=== PATIENT | female | born 1965 | race Caucasian/White ===

== ENCOUNTER 2020-03-31 05:47 | Inpatient (IN) | payer OTHER, SELFPAY ==
[2020-03-31] VITALS (14 sets, daily range): BP systolic 142–256; BP diastolic 63–120; PULSE 54–102; RESP 15–18; TEMP 36.2–37.2; O2SAT 98–100; BMI 30.4; BMI 29.3
--- NOTE | 2020-03-31 06:00 | EKG12_ITS ---
Test Reason : HEADACHE Blood Pressure : / mmHG Vent. Rate : 089 BPM Atrial Rate : 089 BPM P-R Int : 200 ms QRS Dur : 086 ms QT Int : 392 ms P-R-T Axes : 057 008 044 degrees QTc Int : 476 ms Normal sinus rhythm Normal ECG Confirmed by SEAMUS THURMAN, KATHLEEN ([id number]), editorial specialist ERNESTINA VALENTIN ([id number]) on 04/03/2020 11:21:20 AM Referred By: SULEIMAN Confirmed By:KATHLEEN WAY MD
--- NOTE | 2020-03-31 06:00 | CT_ITS ---
STUDY: CT BRAIN WITHOUT CONTRAST REASON FOR EXAM: Female, 54 years old. Headache for 4 days. History of hypertension, diabetes and stage IV kidney disease. RADIATION DOSAGE (If Supplied By Facility): CTDIvol = ( 44.99 ) mGy, DLP = ( 812.98 ) mGycm TECHNIQUE: Transaxial CT imaging of the brain was performed without administration of intravenous contrast material. Individualized dose optimization techniques were used for this CT. COMPARISON: November 27, 2014. FINDINGS: Normal soft tissue structures. Normal calvarium. Normal size ventricles and extra-axial spaces for the patient''s age. Normal white matter tracts of the cerebral hemispheres. Normal basal ganglia and thalami. Normal brainstem. Normal cerebellum. There is no intracranial hemorrhage. There are no findings of an acute ischemic infarction. Normal visualized paranasal sinuses. Mastoid air cells are well aerated. CT/Brain/Head without Contrast IMPRESSION: Normal unenhanced CT scan of the brain. Electronically Signed: Mitchel Mena MD at 7:02 EDT , Service support ,
--- NOTE | 2020-03-31 06:02 | ED.DCSUM_ITS ---
History of Present Illness Chief Complaint: Headache Informant: Patient Onset: Days Context: Gradual Onset Timing: Waxes and wanes Current Severity: Mild Maximum Severity: Moderate Narrative: Patient presents secondary to headache and inability to sleep. She states she is not really been able to sleep more than a couple hours at a time over the past 6 days. She has attributed this to her chronic kidney disease. She does report having a headache for the past 4 days. On arrival to the emergency room she notes that her blood pressure is quite elevated. She states she has been taking her blood pressure medications as prescribed. She believes the last time her blood pressure was checked was in September and at that time it was normal. She does report having chronic kidney disease and was advised by her PCP to see a juvenile counselor, but has yet to make an appointment. - Past Medical History (1) Hypertension Status: Chronic (2) High cholesterol Status: Chronic (3) Diabetes Status: Chronic (4) Chronic kidney disease Status: Chronic Past Medical History - Allergies and Home Meds Allergies/Adverse Reactions: Allergies lisinopril Adverse Reaction (Verified 03/31/20 05:54) NEEDS FOLLOW-UP Primary Care Physician: Laura Ennis MD [Primary Care Provider] - Lives: Alone Smoking Status: Never smoker Review of Systems General: Denies: Chills, Fever Eyes: Denies: Visual changes - bilaterally ENT: Denies: Bilateral ear pain Cardiovascular: Denies: Chest pain Respiratory: Denies: Dyspnea, Cough Gastrointestinal: Denies: Abdominal pain, Vomiting Musculoskeletal: Reports: Myalgias. Denies: Extremity Pain Skin: Denies: Rash Neurological: Reports: Headache. Denies: Weakness, Parasthesia Hematologic: Denies: Easy bruising, Easy bleeding Allergy: Denies: Uticaria Physical Exam Vital Signs/Narrative: Vital Signs Temp Pulse Resp BP Pulse Ox 03/31/20 05:53 95 16 253/120 H 98 03/31/20 05:48 98.9 F 95 15 256/118 H 98 Inital Vital Signs reviewed: Yes General: Well nourished, Well developed Head: Normocephalic ENT: Moist mucous membranes Neck: Supple Cardiovascular: Regular rate, Regular rhythm Respiratory: No distress, CTA bilaterally Abdomen: Soft, Nontender Extremities: Nontender Skin: No rash Neurological: Alert, Oriented x3, Normal Strength, Normal Sensation Psychological: Normal affect Diagnostic/Tx/Re-eval Impressions Brain CT 03/31/20 06:00 IMPRESSION: Normal unenhanced CT scan of the brain. Electronically Signed: Mitchel Mena MD at 7:02 EDT , Service support , 03/31/20 06:00 Brain/Head without Contrast [CT] Stat Laboratory Results 03/31/20 03/31/20 06:01 06:01 WBC 7.9 RBC 4.35 Hgb 11.1 L Hct 33.9 L MCV 77.9 L MCH 25.5 L MCHC 32.7 RDW Std Deviation 39.9 RDW Coeff of Gracy 14.4 Plt Count 244 MPV 10.4 Immature Gran % (Auto) 0.300 Neut % (Auto) 61.2 Lymph % (Auto) 27.3 [place] % (Auto) 7.2 Eos % (Auto) 3.4 Baso % (Auto) 0.6 Absolute Neuts (auto) 4.8 Absolute Lymphs (auto) 2.15 Nucleated RBC % 0 Sodium 134 L Potassium 3.6 Chloride 98 Carbon Dioxide 28.0 Anion Gap 8 BUN 26 H Creatinine 2.37 H Estim Creat Clear Calc 26.39 Est GFR (MDRD) Af Amer 27 L Est GFR (MDRD) Non-Af 23 L BUN/Creatinine Ratio 11.0 Glucose 272 H Calcium 9.4 Troponin I 0.081 H - EKG Initial EKG Interpretation: Sinus Rhythm - Sinus 89. No acute ischemia. - Medical Decision Making Patient's blood pressure on arrival was 256/118. She was given a p.o. dose of clonidine as well as 20 mg of IV Lopressor. Blood pressure came down to 219/101 but is currently 225/99. Patient does have known chronic kidney disease. Her troponin is mildly elevated, likely a combination of cardiac strain from hypertension as well as her renal failure. I will speak with hospitalist regarding admission. ED Disposition - Plan for ED Patient: Disposition: Acute Care Hospital [facility] Diagnosis: Hypertensive emergency Referrals: Laura Ennis MD [Primary Care Provider] -
[2020-03-31 06:06] LABS: Absolute Lymphocyte Count 2.15 X10^3/uL (0.83-4.51); Absolute Neutrophil Count 4.8 X10^3/uL (2.0-7.7); Basophil# 0.05 X10^3/uL; Basophil% 0.6 % (0-1); Eosinophil# 0.27 X10^3/uL; Eosinophils% 3.4 % (0-5); Hematocrit 33.9 % (37-47); Hemoglobin 11.1 g/dL (12.0-15.0); Lymphocyte # 2.15 X10^3/ul (4.0); Lymphocyte % 27.3 % (19-41); Mean Corp Hgb Conc 32.7 g/dL (32-36); Mean Corpuscular Hgb 25.5 pg (27.0-32.0); Mean Corpuscular Volume 77.9 fL (81-99); Mean Platelet Vol. 10.4 fl (6.2-12.0); Monocyte# 0.57 X10^3/uL; Monocyte% 7.2 % (0-10); NRBC Flagged by Analyzer 0 % (0-5); Neutrophil # 4.82 X10^3/uL (2.7-7.7); Neutrophil % 61.2 % (47-70); Platelet Count 244 K/mm3 (150-450); RBC Distribution Width CV 14.4 % (11.6-14.6); RBC Distribution Width SD 39.9 fl (35.1-43.9); Red Blood Count 4.35 M/mm3 (4.2-5.4); White Blood Count 7.9 K/mm3 (4.4-11.0)
--- NOTE | 2020-03-31 06:12 | ED.RN ---
NO OLD EKGS IN MUSE
[2020-03-31] MEDS: cloNIDine HCl 0.1 MG Tablet PO ×3 (06:24→20:58)
[2020-03-31] MEDS: Labetalol (Prefilled) 20 MG/4 ML IV ×2 (06:24→07:45)
[2020-03-31 06:44] LABS: Anion Gap 8 (5-15); BUN 26 mg/dL (7-18); Calcium,Total 9.4 mg/dL (8.5-10.1); Chloride 98 mmol/L (98-107); Creatinine, Serum 2.37 mg/dL (0.55-1.02); EST Glomerular Filtration Rate 23 mL/min (>60); Est Glom Filt Rate - Afr Amer 27 mL/min (>60); Estimated Creatinine Clearance 26.39 ml/min; Glucose 272 mg/dL (74-106); Potassium 3.6 mmol/L (3.5-5.1); Sodium Level 134 mmol/L (136-145)
--- NOTE | 2020-03-31 07:34 | HP.PCM_ITS ---
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 chcf insulin use status Diabetes mellitus complication status: with other specified complication Qualified Code(s): E11.69 - Type 2 diabetes mellitus with other specified complication (4) Chronic kidney disease Status: Chronic Qualifiers: Chronic kidney disease stage: stage 4 (severe) Qualified Code(s): N18.4 - Chronic kidney disease, stage 4 (severe) (5) Hypertensive emergency Status: Acute History of Present Illness Date of Admission: 03/31/20 Chief Complaint: Headache, inability to sleep - 3 days The patient is a 54 year old F with past medical history of hypertension, stage IV CKD who comes in with intractable headache and unable to sleep for the past 4 days. Patient states that he has restless leg and has not been able to sleep. She has been taking her blood pressure medications as prescribed. She denied any chest pain or dizziness or palpitations or shortness of breath. Vitals in the ED showed temperature of 97.8F, heart rate 94, blood pressure was 256/118, respiratory rate is 15, SPO2 is 98% on room air. BBC count is 7.9, hemoglobin 11.1, platelet count 244, sodium 134, potassium 3.6, chloride 98, bicarbonate 28, BUN 26, creatinine 2.37. Review of records from the [facility] shows baseline creatinine of 2.29. Troponins were elevated at 0.081, 0.100, 0.088. EKG shows normal sinus rhythm with no acute ST-T changes. CT of the brain was unremarkable. Past Medical History Past Medical History (Chronic Problems): Chronic Problems Hypertension (Chronic) High cholesterol (Chronic) Diabetes (Chronic) Chronic kidney disease (Chronic) Allergies lisinopril Adverse Reaction (Verified 03/31/20 05:54) NEEDS FOLLOW-UP Home Medications: Ambulatory Orders Medication Instructions Recorded Cetirizine HCl [Zyrtec] 10 mg PO DAILY 11/27/14 Losartan Potassium [Cozaar] 50 mg PO BID 11/27/14 Multivit/Folic Acid/Herbal 223 400 mcg PO DAILY 11/27/14 [Estroven Mood & Memory Caplet] metFORMIN HCl [Glucophage] 500 mg PO BIDCM 11/27/14 Bupropion HCl 100 mg PO DAILY 03/31/20 Carvedilol [Coreg] 12.5 mg PO BID 03/31/20 Clonidine HCl [Catapres] 0.1 mg PO BID 03/31/20 Ferrous Sulfate [Pedia Iron] 45 mg PO DAILY 03/31/20 Liraglutide [Victoza] 1.8 mg SQ DAILY 03/31/20 Lovastatin 20 mg PO QHS 03/31/20 Omeprazole [Prilosec] 20 mg PO DAILY 03/31/20 traZODone [Desyrel] 100 mg PO QHS 03/31/20 Surgical History: cataract, - - Status post surgery to the hands, Psychiatric History: Depression DIRECTOR OF THERAPY SERVICES History: No pertinent DIRECTOR OF THERAPY SERVICES history Lives: Alone Smoking Status: Never smoker Tobacco Use: Non-smoker Alcohol: None Drugs: None - *Family History Maternal History Items: - - of PE Paternal History Items: Heart Disease Review of Systems Constitutional: Reports: Weakness, Fatigue. Denies: Anorexia, Chills, Fever, Night Sweats, Malaise, Weight Change Eyes: Denies: Blurred vision, Cataracts, Conjunctivae Inflammation, Pain, Redness, Vision Change HEENT: Reports: Head Aches. Denies: Difficulty Hearing, Difficulty Swallowing, Hearing Changes, Sinus Congestion, Sinus Drainage Cardiovascular: Denies: Chest Pain, Claudication, Orthopnea, Palpitations Respiratory: Denies: Cough, Hemoptysis, Shortness of breath at rest, Shortness of breath upon exertion, Sputum production Gastrointestinal: Denies: Abdominal Pain, Constipation, Hematemesis, Hematochezia, Nausea, Vomiting Genitourinary: Denies: Dysuria, Frequency Musculoskeletal: Denies: Joint Pain, Joint stiffness, Joint swelling, Joint Tenderness Skin: Denies: Rash, Wounds Neurological: Denies: Difficulty swallowing, Focal weakness, Numbness, Tingling Psychiatric: Denies: Anxiety, Depression, Homicidal Ideations, Suicidal Ideatio ns Hematologic/ Lymphatic: Denies: Easy Bruising, Easy Bleeding VTE Information - Inpt Only VTE Present on Admission: No VTE Pharm Prophylaxis ordered?: Yes Patient Problems: Active and Suspected Problems Hypertensive emergency (Acute) - Physical Exam Vitals/I&O's: Vital Signs Temp Pulse Resp BP Pulse Ox 98.9 F 95 16 219/101 H 98 03/31/20 05:48 03/31/20 05:53 03/31/20 05:53 03/31/20 06:30 03/31/20 05:53 Oxygen Delivery Method Room Air Weight: 88.1 kg Body Mass Index (BMI) 30.4 General: Alert, Oriented x3, Cooperative, No apparent distress, - - In mild discomfort. HEENT: Atraumatic, PERRLA, EOMI, Normocephalic Oral: Moist Mucosa Neck: Supple Lungs: Clear to auscultation, Normal air movement Cardiovascular: Regular rate, Regular Rhythm, Normal S1, Normal S2, No murmurs, Tachycardic Abdomen: Bowel Sounds Present, Soft, Non Tender, Non-Distended, No Hepato- splenomegaly Extremities: No edema Skin: No rashes Musculoskeletal: No Tenderness to Palpation of Joints or Extremities Lymphatic: No Cervical, Supraclavicular, or Inguinal Adenopathy Neurological: Cranial nerves II-XII grossly intact, Neuro grossly intact Psych/Mental Status: Normal Affect, Appropriate Laboratory Results 03/31/20 06:01: WBC 7.9, RBC 4.35, Hgb 11.1 L, Hct 33.9 L, MCV 77.9 L, MCH 25.5 L, MCHC 32.7, RDW Std Deviation 39.9, RDW Coeff of Gracy 14.4, Plt Count 244, MPV 10.4, Immature Gran % (Auto) 0.300, Neut % (Auto) 61.2, Lymph % (Auto) 27.3, [place] % (Auto) 7.2, Eos % (Auto) 3.4, Baso % (Auto) 0.6, Absolute Neuts (auto) 4.8, Absolute Lymphs (auto) 2.15, Nucleated RBC % 0 03/31/20 06:01: Sodium 134 L, Potassium 3.6, Chloride 98, Carbon Dioxide 28.0, Anion Gap 8, BUN 26 H, Creatinine 2.37 H, Estim Creat Clear Calc 26.39, Est GFR (MDRD) Af Amer 27 L, Est GFR (MDRD) Non-Af 23 L, BUN/Creatinine Ratio 11.0, Glucose 272 H, Calcium 9.4, Troponin I 0.081 H Assessment/Plan All Active Problems Hypertensive emergency (Acute) 1. Hypertensive emergency with intractable headache, likely related to inability to sleep In a patient with hypertension and CKD stage IV Patient received a couple of as needed medications in the ED Would resume home medications -increase carvedilol to 25 mg p.o. twice daily, Continue on clonidine 0.1 mg twice daily, losartan 50 mg p.o. twice daily Continue to monitor vitals closely 2. Insomnia, related to restless leg Check iron stores for iron deficiency anemia Continue on oral iron 3. Mild elevation in troponin likely related to uncontrolled hypertension EKG shows no acute ST-T changes We will continue to trend 4. Stage IV CKD, creatinine is about the same, will continue to monitor 5. Type II DM, on metformin, hold metformin for today Continue with blood glucose check and insulin sliding scale 6. Depression, continue on trazodone and bupropion 7. DVT prophylaxis with heparin subcu Inpatient E&M: 22062 Init Hosp L3
[2020-03-31] MEDS: LORazepam 1 MG Tablet PO (09:18)
[2020-03-31] MEDS: Acetaminophen 325 MG Tablet 650 MG PO (09:18)
[2020-03-31] MEDS: Pantoprazole Sodium 20 MG Tablet PO (09:18)
[2020-03-31 11:50] LABS: Bedside Glucose 247 mg/dL (70-110)
[2020-03-31] MEDS: Insulin Lispro 100 UNIT/ML INSULN.PEN SC ×2 (11:51→21:01)
[2020-03-31] MEDS: Loratadine 10 MG Tablet PO (11:52)
[2020-03-31] MEDS: Losartan Potassium 100 MG Tablet PO ×2 (11:52→20:58)
[2020-03-31] MEDS: Carvedilol 25 MG Tablet PO ×2 (11:52→20:58)
[2020-03-31] MEDS: buPROPion 100 MG Tablet PO (11:52)
[2020-03-31] MEDS: Ferrous Sulfate 325 MG Tablet PO (11:53)
--- NOTE | 2020-03-31 12:41 | RAD_ITS ---
STUDY: X-RAY - LEFT FOOT CLINICAL: Female, 54 years old. Ulceration of left 2nd metatarsal since 1st week of January -- pt is diabetic TECHNIQUE: 3 view(s) of the foot. COMPARISON: None. FINDINGS: There is an enthesophyte involving the posterior superior calcaneus at the site of insertion of the Achilles tendon. Small plantar spur. Normal visualized subtalar, talonavicular, calcaneocuboid, tarsal and tarsometatarsal articulations. Healed fracture with deformity through the shaft of the fifth metatarsal. Normal metatarsophalangeal joint of the great toe. Normal tibial and fibular sesamoid bones. Normal interphalangeal joint of the great toe. Normal phalanges of the great toe. Normal second through fifth metatarsophalangeal joints. Normal interphalangeal joints and phalanges of the lesser toes. There is non-specific soft tissue swelling of the foot. Vascular calcification. RAD/Foot min 3 Views IMPRESSION: Calcaneal spurs. Soft tissue swelling. Electronically Signed: José Manuel Miranda, at 15:19 EDT , Service support ,
[2020-03-31] MEDS: Heparin Injection (Vial) 5,000 UNIT/ML VIAL 5000 UNIT SC ×2 (13:26→20:58)
--- NOTE | 2020-03-31 13:53 | NURSING ---
wound photo: left foot
[2020-03-31 15:36] LABS: Iron 91 ug/dL (50-170); Iron Binding Capacity,Total 244 ug/dL (250-450); PERCENT IRON SATURATION 37.3 % (15.0-55.0)
[2020-03-31 16:21] LABS: Bedside Glucose 273 mg/dL (70-110)
--- NOTE | 2020-03-31 18:45 | PCM.CONS.GEN ---
Reason for Consult Date of Consultation: 03/31/20 Reason for Consultation: left foot ulceration History of Present Illness: The patient is a 54 year old F admitted for hypertensive emergency. podiatry is consulted for diabetic foot ulceration. per discussion with patient, she developed an ulceration back in December when she went swimming and a callus that she had developed prior, became macerated and the skin was deroofed. she has been cleaning with neosporin and band aid. she denies any redness. she denies n/v/f/c. she denies any drainage. Past Medical History Past Medical History (Chronic Problems): Chronic Problems Hypertension (Chronic) High cholesterol (Chronic) Diabetes (Chronic) Chronic kidney disease (Chronic) Allergies lisinopril Adverse Reaction (Verified 03/31/20 05:54) NEEDS FOLLOW-UP Home Medications: Ambulatory Orders Medication Instructions Recorded Cetirizine HCl [Zyrtec] 10 mg PO DAILY 11/27/14 Losartan Potassium [Cozaar] 50 mg PO BID 11/27/14 Multivit/Folic Acid/Herbal 223 400 mcg PO DAILY 11/27/14 [Estroven Mood & Memory Caplet] metFORMIN HCl [Glucophage] 500 mg PO BIDCM 11/27/14 Bupropion HCl 100 mg PO DAILY 03/31/20 Carvedilol [Coreg] 12.5 mg PO BID 03/31/20 Clonidine HCl [Catapres] 0.1 mg PO BID 03/31/20 Ferrous Sulfate [Pedia Iron] 45 mg PO DAILY 03/31/20 Liraglutide [Victoza] 1.8 mg SQ DAILY 03/31/20 Lovastatin 20 mg PO QHS 03/31/20 Omeprazole [Prilosec] 20 mg PO DAILY 03/31/20 traZODone [Desyrel] 100 mg PO QHS 03/31/20 Surgical History: cataract, - - Status post surgery to the hands, Psychiatric History: Depression 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 she does not appear in any distress vascular: DP and PT pulses are palpable b/l. cft is less than 5 seconds. skin temperature is warm to warm. no erythema is noted. Derm: there is ulceration to left 2nd metatarsal. the ulceration has periwound hyperkeratosis. there is no redness, drainage or local signs of infection. the ulceration following debridement measures 1.1 cm x 1.0 cm x 0.2 cm. no probe to bone. m/s: subtle hammertoe is present of left 2nd toe neuro: protective sensation is absent to b/l feet - Physical Exam Vitals/I&O's: Vital Signs Temp Pulse Resp BP Pulse Ox 97.2 F L 91 18 169/84 H 98 03/31/20 14:39 03/31/20 15:28 03/31/20 14:39 03/31/20 14:39 03/31/20 14:39 Oxygen Delivery Method Room Air Weight: 85 kg Body Mass Index (BMI) 29.3 Intake and Output for Last 24 Hours 03/29/20 03/30/20 03/31/20 23:59 23:59 23:59 Intake Total 100 / 100 Balance 100 / 100 Laboratory Results 03/31/20 06:01: WBC 7.9, RBC 4.35, Hgb 11.1 L, Hct 33.9 L, MCV 77.9 L, MCH 25.5 L, MCHC 32.7, RDW Std Deviation 39.9, RDW Coeff of Gracy 14.4, Plt Count 244, MPV 10.4, Immature Gran % (Auto) 0.300, Neut % (Auto) 61.2, Lymph % (Auto) 27.3, [place] % (Auto) 7.2, Eos % (Auto) 3.4, Baso % (Auto) 0.6, Absolute Neuts (auto) 4.8, Absolute Lymphs (auto) 2.15, Nucleated RBC % 0 03/31/20 06:01: Sodium 134 L, Potassium 3.6, Chloride 98, Carbon Dioxide 28.0, Anion Gap 8, BUN 26 H, Creatinine 2.37 H, Estim Creat Clear Calc 26.39, Est GFR (MDRD) Af Amer 27 L, Est GFR (MDRD) Non-Af 23 L, BUN/Creatinine Ratio 11.0, Glucose 272 H, Calcium 9.4, Troponin I 0.081 H 03/31/20 10:40: Troponin I 0.100 H 03/31/20 11:46: POC Glucose 247 H 03/31/20 13:30: Troponin I 0.088 H 03/31/20 13:30: Iron 91, TIBC 244 L, Iron Saturation 37.3 03/31/20 16:15: POC Glucose 273 H Current Medications Acetaminophen (Tylenol) 650 mg PO Q6H PRN PRN PRN Reason: Pain Score 1-10/Temp > 100.7 F Last Admin: 03/31/20 09:18 Dose: 650 mg Documented by: Atorvastatin Calcium (Lipitor) 5 mg PO QHS [facility] Bupropion HCl (Wellbutrin Tablets) 100 mg PO DAILY [facility] Last Admin: 03/31/20 11:52 Dose: 100 mg Documented by: Carvedilol (Coreg) 25 mg PO BID [facility] Last Admin: 03/31/20 11:52 Dose: 25 mg Documented by: Clonidine (Catapres) 0.1 mg PO BID [facility] Last Admin: 03/31/20 09:18 Dose: 0.1 mg Documented by: Dextrose (D50w Syringe) 0 gm IV X1 PRN; Protocol PRN Reason: Hypoglycemia Ferrous Sulfate (Ferrous Sulfate) 325 mg PO DAILY@1200 [facility] Last Admin: 03/31/20 11:53 Dose: 325 mg Documented by: Glucagon () 1 mg IM .X1 PRN PRN Reason: Hypoglycemia Heparin Sodium (Porcine) (Heparin Na) 5,000 unit SC Q8 [facility] Last Admin: 03/31/20 13:26 Dose: 5,000 unit Documented by: Hydralazine HCl (Apresoline Iv) 10 mg IV Q4H PRN PRN PRN Reason: BLOOD PRESSURE Insulin Human Lispro (Humalog Kwikpen (Bkc)) 0 unit SC ACHS [facility]; Protocol Last Admin: 03/31/20 16:16 Dose: Not Given Documented by: Loratadine (Claritin) 10 mg PO DAILY [facility] Last Admin: 03/31/20 11:52 Dose: 10 mg Documented by: Losartan Potassium (Cozaar) 100 mg PO BID [facility] Stop: 04/01/20 10:00 Last Admin: 03/31/20 11:52 Dose: 100 mg Documented by: Losartan Potassium (Cozaar) 50 mg PO BID [facility] Ondansetron HCl (Zofran) 4 mg IV Q8H PRN PRN PRN Reason: NAUSEA/VOMITING Pantoprazole Sodium (Protonix) 20 mg PO DAILY [facility] Last Admin: 03/31/20 09:18 Dose: 20 mg Documented by: Sodium Chloride () 10 - 40 ml IV UD PRN PRN Reason: SALINE FLUSH Trazodone HCl (Desyrel) 100 mg PO QHS [facility] Assessment/Plan All Active Problems Hypertensive emergency (Acute) Type 2 diabetes mellitus with foot ulcer (Acute) Patient was examined and we discussed ulceration of left 2nd metatarsal. the etiology of this ulceration is due to subtle hammertoe, atrophy of fat pad and neuropathy. there is no local signs of infection. today, a full thickness debridement was performed thru subcutaneous tissue with tissue nippers and #10 blade. bleeding was present and controlled with pressure. I recommend the use of aquacel to the wound applied daily . It is important that she remain nwb to left foot. any walking to left foot can lead to progressive worsening of left foot ulceration. will have patient use walker and surgical shoe and she is advised of any walking to left foot. I will order xrays of left foot. she can discharge once medically stable and follow-up in my outpatient clinic.
[2020-03-31 20:31] LABS: Bedside Glucose 334 mg/dL (70-110)
[2020-03-31] MEDS: traZODone 100 MG Tablet PO (20:58)
[2020-03-31] MEDS: Atorvastatin Calcium 10 MG Tablet 5 MG PO (20:58)
[2020-04-01] VITALS (10 sets, daily range): BP systolic 135–158; BP diastolic 64–74; PULSE 76–94; RESP 16–18; TEMP 36.8–37.1; O2SAT 94–96
[2020-04-01 05:54] LABS: Absolute Lymphocyte Count 1.74 X10^3/uL (0.83-4.51); Absolute Neutrophil Count 3.5 X10^3/uL (2.0-7.7); Basophil# 0.04 X10^3/uL; Basophil% 0.7 % (0-1); Eosinophil# 0.13 X10^3/uL; Eosinophils% 2.2 % (0-5); Hematocrit 31.6 % (37-47); Hemoglobin 10.2 g/dL (12.0-15.0); Lymphocyte # 1.74 X10^3/ul (4.0); Mean Corp Hgb Conc 32.3 g/dL (32-36); Mean Corpuscular Hgb 25.1 pg (27.0-32.0); Mean Corpuscular Volume 77.6 fL (81-99); Mean Platelet Vol. 10.3 fl (6.2-12.0); Monocyte# 0.59 X10^3/uL; Monocyte% 9.8 % (0-10); NRBC Flagged by Analyzer 0 % (0-5); Neutrophil # 3.49 X10^3/uL (2.7-7.7); Neutrophil % 58.3 % (47-70); Platelet Count 230 K/mm3 (150-450); RBC Distribution Width CV 14.3 % (11.6-14.6); RBC Distribution Width SD 40.2 fl (35.1-43.9); Red Blood Count 4.07 M/mm3 (4.2-5.4)
[2020-04-01 06:22] LABS: ALB/GLOB Ratio 0.7 RATIO (0.9-2.4); AST(SGOT) 14 U/L (15-37); Alanine Aminotransfer ALT/SGPT 21 U/L (13-56); Albumin, Serum 2.7 g/dL (3.2-5.0); Alkaline Phosphatase 92 U/L (45-117); Anion Gap 8 (5-15); BUN 24 mg/dL (7-18); BUN/Creat Ratio 10.5 RATIO (10-20); Calcium,Total 8.6 mg/dL (8.5-10.1); Chloride 98 mmol/L (98-107); Creatinine, Serum 2.28 mg/dL (0.55-1.02); EST Glomerular Filtration Rate 24 mL/min (>60); Est Glom Filt Rate - Afr Amer 29 mL/min (>60); Estimated Creatinine Clearance 27.43 ml/min; Glucose 310 mg/dL (74-106); Potassium 3.7 mmol/L (3.5-5.1); Protein, Total 6.7 g/dL (6.4-8.2); Sodium Level 133 mmol/L (136-145)
[2020-04-01] MEDS: Insulin Lispro 100 UNIT/ML INSULN.PEN SC ×4 (06:35→21:25)
[2020-04-01] MEDS: Heparin Injection (Vial) 5,000 UNIT/ML VIAL 5000 UNIT SC ×3 (06:35→21:27)
[2020-04-01 06:41] LABS: Bedside Glucose 301 mg/dL (70-110)
--- NOTE | 2020-04-01 08:58 | DCINST_ITS ---
- Discharge Diagnoses Current Active Problems: Current Active and Chronic Problems Hypertensive emergency (Acute) Type 2 diabetes mellitus with foot ulcer (Acute) Reason(s) for Visit for Discharge Instructions: Headache, uncontrolled hypertension You will use the following diet at home:: Renal (restricted protein/sodium) Your food should be the consistency of: Regular Your liquids should be the consistency of: Regular/Thin Discharge Activity: Return to Normal Activity Additional Instructions: Take note of changes in your medications. Continue on a low salt, low fat diet. You can take melatonin as needed for sleep. Follow-up with your primary care doctor in 1 to 2 weeks. Allergies/Adverse Reactions: Allergies lisinopril Adverse Reaction (Verified 03/31/20 05:54) NEEDS FOLLOW-UP Medications to take at Discharge Cetirizine HCl [Zyrtec] 10 mg PO DAILY 11/27/14 Losartan Potassium [Cozaar] 50 mg PO BID 11/27/14 Multivit/Folic Acid/Herbal 223 [Estroven Mood and Memory Cplt] 400 mcg PO DAILY 11/27/14 metFORMIN HCl [Glucophage] 500 mg PO BIDCM 11/27/14 Bupropion HCl 100 mg PO DAILY 03/31/20 Clonidine HCl [Catapres] 0.1 mg PO BID 03/31/20 Ferrous Sulfate [Pedia Iron] 45 mg PO DAILY 03/31/20 Liraglutide [Victoza] 1.8 mg SQ DAILY 03/31/20 Lovastatin 20 mg PO QHS 03/31/20 Omeprazole [Prilosec] 20 mg PO DAILY 03/31/20 traZODone [Desyrel] 100 mg PO QHS 03/31/20 Acetaminophen [Tylenol Tablet] 650 mg PO Q6H PRN PRN tab 04/01/20 Carvedilol [Coreg (Beta Jet)] 25 mg PO BID 30 Days #60 tab 04/01/20 The following prescriptions were given: Carvedilol [Coreg (Beta Jet)] 25 mg PO BID 30 Days #60 tab Transmission Status: Received by [facility]/pharmacy #[id number] Primary Care Physician: Laura Ennis MD [Primary Care Provider] - Please follow up with your Primary Care Physician in: within 1-2 weeks Test Results: Test results from this visit will be discussed in further detail at your follow- up appointment, if applicable. Proposed Discharge Date: 04/01/20
--- NOTE | 2020-04-01 09:17 | CASEMGMT ---
AURELIANO CRUZ assessment: Face to Face with patient for initial transition planning/care coordination assessment. AURELIANO CRUZ introduced self and role at [facility], pt voices understanding and consents to assessment at this time. Pt is lying in bed in no distress at this time. Pt is A/Ox4 at this time and answers all questions appropriately at this time. Care providers, pharmacy, and demographics verified/updated at this time. Presentation: Migraine since Admitting dx: Hypertensive urgency PCP: Mariaa Specialists: [place], podiatry; [place], [facility] [place] Insurance: Jukely Prescription Benefit: Jukely Living Will/HPOA: Pt states has LW/HPOA and is aware that they are on file at [facility] at this time. Pt states that her brother, Sudeep Lopez, is HPOA. LNOK: Sudeep Lopez, brother/HPOA Living Arrangements: Pt states lives alone in 1 story home and states no concerns at home at this time. Pt states is independent with ADL's. Transportation: Pt states drives self and states no transportation concerns at this time. DME/HHC: Pt states has a walker and shower chair and states no need for further DME at this time. Pt states no hx of HHC or SNF in the past. Pt states no concerns with going home at time of discharge. 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 Pt states does not smoke cigarettes or drink ETOH. Pt voices no further concerns/needs at this time. CM to follow for any further discharge planning/needs. Advised pt to ask for CM if any further questions/concerns/needs arise, voices understanding. Pt Goal: Home Plan[place] AURELIANO CRUZ
[2020-04-01] MEDS: Loratadine 10 MG Tablet PO (09:58)
[2020-04-01] MEDS: buPROPion 100 MG Tablet PO (09:58)
[2020-04-01] MEDS: Pantoprazole Sodium 20 MG Tablet PO (09:58)
[2020-04-01] MEDS: Losartan Potassium 100 MG Tablet PO (09:58)
[2020-04-01] MEDS: cloNIDine HCl 0.1 MG Tablet PO ×2 (09:58→21:26)
[2020-04-01] MEDS: Carvedilol 25 MG Tablet PO ×2 (09:58→21:26)
--- NOTE | 2020-04-01 11:24 | PCM.DC.SUM ---
Discharge Date and Diagnosis Date of Admission: 03/31/20 Date of Discharge: 04/01/20 - Primary Discharge Diagnosis Acute Problems: Active Problems Hypertensive emergency Intractable headache Insomnia Elevated troponins secondary to demand ischemia Left foot plantar ulcer - Secondary Discharge Diagnosis Chronic Problems: Chronic Problems Hypertension (Chronic) High cholesterol (Chronic) Diabetes (Chronic) Chronic kidney disease (Chronic) Hospital Course and Treatment Imaging Results: Clinical Impression(s) from Imaging Studies Brain CT 03/31/20 06:00 IMPRESSION: Normal unenhanced CT scan of the brain. Electronically Signed: Mitchel Mena MD at 7:02 EDT , Service support , Foot X-Ray 03/31/20 12:41 IMPRESSION: Calcaneal spurs. Soft tissue swelling. Electronically Signed: José Manuel Miranda at 15:19 EDT , Service support , Lower Extremity MRI 04/01/20 12:32 IMPRESSION: 1. Mild subcutaneous edema is seen primarily on the plantar aspect of the forefoot. No focal fluid collection/abscess. 2. No evidence of osteomyelitis - No visualized marrow edema or cortical erosion or bony destruction. No occult fractures. Electronically Signed: Peter Guerrero MD at 19:09 EDT , Service support , Consultations 03/31/20 09:14 Consult: Onc/Wound/rag room supervisor Routine Comment: Reason for Consult:: ulcer ball of left foot Podiatry consult Summary of Care Provided: 4 year old F with past medical history of hypertension, stage IV CKD who comes in with intractable headache and unable to sleep for the past 4 days. Patient states that he has restless leg and has not been able to sleep. She has been taking her blood pressure medications as prescribed. She denied any chest pain or dizziness or palpitations or shortness of breath. Patient was found to have a severely elevated blood pressure of 256/118. CT of the brain was negative for acute bleed. Troponins were slightly elevated at 0.081 and peaked at 0.100. Patient was resumed on her home blood pressure medication with an increase in her carvedilol. She was admitted to telemetry floor. She was monitored with no acute event. Patient was able to sleep. Blood pressure was improved. She was also noted to have a left plantar ulcer. Podiatry was consulted. Bedside wound debridement was done. MRI of the left foot was requested and was negative for acute osteomyelitis. Patient was started on Keflex and was discharged to continue same. Patient to follow-up in the outpatient with Dr. Cheng in a week and with within 2 weeks. Subjective: On the day of discharge, patient was seen and examined. Denied any new complaints. She denied any headache. She is able to sleep. Objective: Physical exam: General: Alert, Oriented x3, Cooperative, No apparent distress HEENT: Atraumatic, PERRLA, EOMI, Normocephalic Oral: Moist Mucosa Neck: Supple Lungs: Clear to auscultation, Normal air movement Cardiovascular: Regular rate, Regular Rhythm, Normal S1, Normal S2, No murmurs, Tachycardic Abdomen: Bowel Sounds Present, Soft, Non Tender, Non-Distended, No Hepato-splenomegaly Extremities: No edema Skin: No rashes Musculoskeletal: No Tenderness to Palpation of Joints or Extremities Lymphatic: No Cervical, Supraclavicular, or Inguinal Adenopathy Neurological: Cranial nerves II-XII grossly intact, Neuro grossly intact Psych/Mental Status: Normal Affect, Appropriate - Physical Exam Vitals/I&O's: Vital Signs Temp Pulse Resp BP Pulse Ox 98.3 F 81 16 158/66 H 95 04/01/20 09:26 04/01/20 09:26 04/01/20 09:26 04/01/20 09:26 04/01/20 09:26 Oxygen Delivery Method Room Air Weight: 85.8 kg Body Mass Index (BMI) 29.3 Intake and Output for Last 24 Hours 03/30/20 03/31/20 04/01/20 23:59 23:59 23:59 Intake Total 540 / 540 240 / 240 Balance 540 / 540 240 / 240 Laboratory Results 03/31/20 11:46: POC Glucose 247 H 03/31/20 13:30: Troponin I 0.088 H 03/31/20 13:30: Iron 91, TIBC 244 L, Iron Saturation 37.3 03/31/20 16:15: POC Glucose 273 H 03/31/20 20:27: POC Glucose 334 H 04/01/20 05:40: WBC 6.0, RBC 4.07 L, Hgb 10.2 L, Hct 31.6 L, MCV 77.6 L, MCH 25.1 L, MCHC 32.3, RDW Std Deviation 40.2, RDW Coeff of Gracy 14.3, Plt Count 230, MPV 10.3, Immature Gran % (Auto) 0.000, Neut % (Auto) 58.3, Lymph % (Auto) 29.0, [place] % (Auto) 9.8, Eos % (Auto) 2.2, Baso % (Auto) 0.7, Absolute Neuts (auto) 3.5, Absolute Lymphs (auto) 1.74, Nucleated RBC % 0 04/01/20 05:40: Sodium 133 L, Potassium 3.7, Chloride 98, Carbon Dioxide 27.0, Anion Gap 8, BUN 24 H, Creatinine 2.28 H, Estim Creat Clear Calc 27.43, Est GFR (MDRD) Af Amer 29 L, Est GFR (MDRD) Non-Af 24 L, BUN/Creatinine Ratio 10.5, Glucose 310 H, Calcium 8.6, Total Bilirubin 0.40, AST 14 L, ALT 21, Alkaline Phosphatase 92, Total Protein 6.7, Albumin 2.7 L, Globulin 4.0, Albumin/Globulin Ratio 0.7 L 04/01/20 06:34: POC Glucose 301 H Current Medications Acetaminophen (Tylenol) 650 mg PO Q6H PRN PRN PRN Reason: Pain Score 1-10/Temp > 100.7 F Last Admin: 03/31/20 09:18 Dose: 650 mg Documented by: Atorvastatin Calcium (Lipitor) 5 mg PO QHS [facility] Last Admin: 03/31/20 20:58 Dose: 5 mg Documented by: Bupropion HCl (Wellbutrin Tablets) 100 mg PO DAILY [facility] Last Admin: 04/01/20 09:58 Dose: 100 mg Documented by: Carvedilol (Coreg) 25 mg PO BID [facility] Last Admin: 04/01/20 09:58 Dose: 25 mg Documented by: Clonidine (Catapres) 0.1 mg PO BID [facility] Last Admin: 04/01/20 09:58 Dose: 0.1 mg Documented by: Dextrose (D50w Syringe) 0 gm IV X1 PRN; Protocol PRN Reason: Hypoglycemia Ferrous Sulfate (Ferrous Sulfate) 325 mg PO DAILY@1200 [facility] Last Admin: 03/31/20 11:53 Dose: 325 mg Documented by: Glucagon () 1 mg IM .X1 PRN PRN Reason: Hypoglycemia Heparin Sodium (Porcine) (Heparin Na) 5,000 unit SC Q8 [facility] Last Admin: 04/01/20 06:35 Dose: 5,000 unit Documented by: Hydralazine HCl (Apresoline Iv) 10 mg IV Q4H PRN PRN PRN Reason: BLOOD PRESSURE Insulin Human Lispro (Humalog Kwikpen (Bkc)) 0 unit SC ACHS [facility]; Protocol Last Admin: 04/01/20 06:35 Dose: 3 units Documented by: Loratadine (Claritin) 10 mg PO DAILY [facility] Last Admin: 04/01/20 09:58 Dose: 10 mg Documented by: Losartan Potassium (Cozaar) 50 mg PO BID [facility] Ondansetron HCl (Zofran) 4 mg IV Q8H PRN PRN PRN Reason: NAUSEA/VOMITING Pantoprazole Sodium (Protonix) 20 mg PO DAILY [facility] Last Admin: 04/01/20 09:58 Dose: 20 mg Documented by: Sodium Chloride () 10 - 40 ml IV UD PRN PRN Reason: SALINE FLUSH Trazodone HCl (Desyrel) 100 mg PO QHS [facility] Last Admin: 03/31/20 20:58 Dose: 100 mg Documented by: Discharge Diet: Carb Control Diet, Renal Diet Discharge Activity: Return to Normal Activity Home Medications: Medications to take at Discharge Cetirizine HCl [Zyrtec] 10 mg PO DAILY 11/27/14 Losartan Potassium [Cozaar] 50 mg PO BID 11/27/14 Multivit/Folic Acid/Herbal 223 [Estroven Mood and Memory Cplt] 400 mcg PO DAILY 11/27/14 metFORMIN HCl [Glucophage] 500 mg PO BIDCM 11/27/14 Bupropion HCl 100 mg PO DAILY 03/31/20 Clonidine HCl [Catapres] 0.1 mg PO BID 03/31/20 Ferrous Sulfate [Pedia Iron] 45 mg PO DAILY 03/31/20 Liraglutide [Victoza] 1.8 mg SQ DAILY 03/31/20 Lovastatin 20 mg PO QHS 03/31/20 Omeprazole [Prilosec] 20 mg PO DAILY 03/31/20 traZODone [Desyrel] 100 mg PO QHS 03/31/20 Acetaminophen [Tylenol Tablet] 650 mg PO Q6H PRN PRN tab 04/01/20 Cephalexin [Keflex] 250 mg PO Q8 7 Days #21 cap 04/01/20 Carvedilol [Coreg (Beta Jet)] 25 mg PO BID 30 Days #60 tab 04/02/20 Following Prescriptions Were Given to Patient: Carvedilol [Coreg (Beta Jet)] 25 mg PO BID 30 Days #60 tab Transmission Status: [id number] Cephalexin [Keflex] 250 mg PO Q8 7 Days #21 cap Transmission Status: [id number] Primary Care Physician: Laura Ennis MD [Primary Care Provider] - Please follow up with your Primary Care Physician in: within 1-2 weeks Disposition: Home Minutes spent on discharge:: 40 Patient Condition:: Stable Medical Necessity - Tobacco Use Smoking Status: Never smoker Tobacco Use: Non-smoker Meaningful Use Info Meaningful Use Diagnoses (Choose all that apply): None applicable Inpatient E&M: 78439 [facility]
[2020-04-01 12:16] LABS: Bedside Glucose 317 mg/dL (70-110)
--- NOTE | 2020-04-01 12:32 | MRI_ITS ---
STUDY: MRI LEFT MIDFOOT REASON FOR EXAM: Female, 54 years old. LEFT foot wound (ball of foot), ulcer 2nd metatarsal TECHNIQUE: Standardized fat and water weighted pulse sequences were obtained in all 3 orthogonal planes. COMPARISON: None. FINDINGS: Mild subcutaneous edema is seen primarily on the plantar aspect of the forefoot. No focal fluid collection/abscess. No visualized marrow edema or cortical erosion or bony destruction. No occult fractures. Normal talonavicular articulation. Normal calcaneocuboid articulation. Normal navicular-cuneiform articulations. Normal intercuneiform articulations. Normal first tarsometatarsal a small joint effusion is present in the first MTP. Articulation. Normal Lisfranc ligament. Normal second and third tarsometatarsal articulations. Normal cuboid fourth and cuboid fifth tarsometatarsal articulation. Normal first through fifth metatarsi. Normal tibialis anterior tendon. Normal extensor hallucis longus tendon. Normal extensor digitorum longus tendons. Normal peroneus longus tendon and distal insertion. Normal peroneus brevis tendon and distal insertion. Normal intrinsic muscles of the mid and forefoot region. Normal extensor digitorum brevis muscle. Normal subcutis adipose space. MRI/Lower Ext/No Jt/w/o IMPRESSION: 1. Mild subcutaneous edema is seen primarily on the plantar aspect of the forefoot. No focal fluid collection/abscess. 2. No evidence of osteomyelitis - No visualized marrow edema or cortical erosion or bony destruction. No occult fractures. Electronically Signed: Peter Guerrero MD at 19:09 EDT , Service support ,
--- NOTE | 2020-04-01 12:35 | PN.SURG_ITS ---
Patient Problems: Active and Suspected Problems Hypertensive emergency (Acute) Type 2 diabetes mellitus with foot ulcer (Acute) Subjective: patient is seen at bedside this afternoon for follow-up left foot ulceration. denies n/v/f/c. Objective: patient is alert and orietated x3 no acute distress vascular: DP and PT pulses palpable to left foot. cft is brisk. skin temperature is warm to warm. derm: full thickness ulceration of left 2nd metatarsal with mix of fibrotic slough and granular tissue. mild scant drainage present. no redness. no probe to bone. no local signs of infection. m/s: no calf pain present - Physical Exam Vitals/I&O's: Vital Signs Temp Pulse Resp BP Pulse Ox 98.3 F 81 16 158/66 H 95 04/01/20 09:26 04/01/20 09:26 04/01/20 09:26 04/01/20 09:26 04/01/20 09:26 Oxygen Delivery Method Room Air Weight: 85.8 kg Body Mass Index (BMI) 29.3 Intake and Output for Last 24 Hours 03/30/20 03/31/20 04/01/20 23:59 23:59 23:59 Intake Total 540 / 540 240 / 240 Balance 540 / 540 240 / 240 Laboratory Results 03/31/20 13:30: Troponin I 0.088 H 03/31/20 13:30: Iron 91, TIBC 244 L, Iron Saturation 37.3 03/31/20 16:15: POC Glucose 273 H 03/31/20 20:27: POC Glucose 334 H 04/01/20 05:40: WBC 6.0, RBC 4.07 L, Hgb 10.2 L, Hct 31.6 L, MCV 77.6 L, MCH 25.1 L, MCHC 32.3, RDW Std Deviation 40.2, RDW Coeff of Gracy 14.3, Plt Count 230, MPV 10.3, Immature Gran % (Auto) 0.000, Neut % (Auto) 58.3, Lymph % (Auto) 29.0, [place] % (Auto) 9.8, Eos % (Auto) 2.2, Baso % (Auto) 0.7, Absolute Neuts (auto) 3.5, Absolute Lymphs (auto) 1.74, Nucleated RBC % 0 04/01/20 05:40: Sodium 133 L, Potassium 3.7, Chloride 98, Carbon Dioxide 27.0, Anion Gap 8, BUN 24 H, Creatinine 2.28 H, Estim Creat Clear Calc 27.43, Est GFR (MDRD) Af Amer 29 L, Est GFR (MDRD) Non-Af 24 L, BUN/Creatinine Ratio 10.5, Glucose 310 H, Calcium 8.6, Total Bilirubin 0.40, AST 14 L, ALT 21, Alkaline Phosphatase 92, Total Protein 6.7, Albumin 2.7 L, Globulin 4.0, Albumin/Globulin Ratio 0.7 L 04/01/20 06:34: POC Glucose 301 H 04/01/20 12:09: POC Glucose 317 H Current Medications Acetaminophen (Tylenol) 650 mg PO Q6H PRN PRN PRN Reason: Pain Score 1-10/Temp > 100.7 F Last Admin: 03/31/20 09:18 Dose: 650 mg Documented by: Atorvastatin Calcium (Lipitor) 5 mg PO QHS [facility] Last Admin: 03/31/20 20:58 Dose: 5 mg Documented by: Bupropion HCl (Wellbutrin Tablets) 100 mg PO DAILY [facility] Last Admin: 04/01/20 09:58 Dose: 100 mg Documented by: Carvedilol (Coreg) 25 mg PO BID [facility] Last Admin: 04/01/20 09:58 Dose: 25 mg Documented by: Clonidine (Catapres) 0.1 mg PO BID [facility] Last Admin: 04/01/20 09:58 Dose: 0.1 mg Documented by: Dextrose (D50w Syringe) 0 gm IV X1 PRN; Protocol PRN Reason: Hypoglycemia Ferrous Sulfate (Ferrous Sulfate) 325 mg PO DAILY@1200 [facility] Last Admin: 03/31/20 11:53 Dose: 325 mg Documented by: Glucagon () 1 mg IM .X1 PRN PRN Reason: Hypoglycemia Heparin Sodium (Porcine) (Heparin Na) 5,000 unit SC Q8 [facility] Last Admin: 04/01/20 06:35 Dose: 5,000 unit Documented by: Hydralazine HCl (Apresoline Iv) 10 mg IV Q4H PRN PRN PRN Reason: BLOOD PRESSURE Insulin Human Lispro (Humalog Kwikpen (Bkc)) 0 unit SC ACHS [facility]; Protocol Last Admin: 04/01/20 06:35 Dose: 3 units Documented by: Loratadine (Claritin) 10 mg PO DAILY [facility] Last Admin: 04/01/20 09:58 Dose: 10 mg Documented by: Losartan Potassium (Cozaar) 50 mg PO BID [facility] Ondansetron HCl (Zofran) 4 mg IV Q8H PRN PRN PRN Reason: NAUSEA/VOMITING Pantoprazole Sodium (Protonix) 20 mg PO DAILY [facility] Last Admin: 04/01/20 09:58 Dose: 20 mg Documented by: Sodium Chloride () 10 - 40 ml IV UD PRN PRN Reason: SALINE FLUSH Trazodone HCl (Desyrel) 100 mg PO QHS [facility] Last Admin: 03/31/20 20:58 Dose: 100 mg Documented by: Medical Necessity - Tobacco Use Smoking Status: Never smoker Tobacco Use: Non-smoker Assessment/Plan All Active Problems Hypertensive emergency (Acute) Type 2 diabetes mellitus with foot ulcer (Acute) patient was examined and bedside this afternoon. on exam, the ulceration presents with small amount of scant drainage, no purulence. no erythema or exposed bone. will continue with nwb and aquacel to wound daily. Today due to drainage, a culture was performed. will start patient on keflex. will follow these cultures and if she discharged, will follow cultures as outpatient. will start her on keflex 500 mg tid. I am going to obtain mri of left foot to evaluate for underlying osteomyelitis. due to elevation of creatinine, will do without contrast. I will discuss plan with hospitalist prior to discharge
[2020-04-01] MEDS: Ferrous Sulfate 325 MG Tablet PO (12:43)
--- NOTE | 2020-04-01 12:49 | CASEMGMT ---
Per Nazia wound RN, pt will need simple daily dressing changes with Aquacel AG, dry dressing, kerlix and jef. This RN CM to room to discuss with pt and pt feels she will be able to complete this at home on own but would like to go over it with wound nurse prior to discharge. Per pt, Dr. Cheng is now ordering an MRI of her foot and she is not sure when it will be completed so her discharge may be delayed till tomorrow. Nazia wound RN, updated at this time. Pt voices no further questions/concerns/needs at this time. Sandy RN CM
--- NOTE | 2020-04-01 13:15 | NURSING ---
Reviewed dressing change with patient. patient feels she is able to change the dressing herself at home. there is a possibility that patient is going to be discharged home later today if MRI is negative. patient has some supplies to take home with her. script written for wound care supplies as well. pt to follow up with Dr Cheng. pt denies further needs or concerns at this time.
--- NOTE | 2020-04-01 15:11 | NURSING ---
This RN taking over care of pt at this time. Report received from Alejandrina BEDOYA.
[2020-04-01] MEDS: Cephalexin 250 MG Capsule PO ×2 (15:22→21:26)
[2020-04-01 16:51] LABS: Bedside Glucose 331 mg/dL (70-110)
[2020-04-01] MEDS: traZODone 100 MG Tablet PO (21:26)
[2020-04-01] MEDS: Atorvastatin Calcium 10 MG Tablet 5 MG PO (21:26)
[2020-04-01] MEDS: Losartan Potassium 50 MG Tablet PO (21:27)
[2020-04-01 21:45] LABS: Bedside Glucose 290 mg/dL (70-110)
[2020-04-02] VITALS (7 sets, daily range): BP systolic 149–159; BP diastolic 66–79; PULSE 70–79; RESP 17–18; TEMP 36.6–36.9; O2SAT 95–97
[2020-04-02] MEDS: Heparin Injection (Vial) 5,000 UNIT/ML VIAL 5000 UNIT SC (06:39)
[2020-04-02] MEDS: Cephalexin 250 MG Capsule PO (06:40)
[2020-04-02] MEDS: Insulin Lispro 100 UNIT/ML INSULN.PEN SC ×2 (06:40→11:52)
[2020-04-02 06:45] LABS: Bedside Glucose 381 mg/dL (70-110)
--- NOTE | 2020-04-02 07:29 | PN.SURG_ITS ---
Patient Problems: Active and Suspected Problems Hypertensive emergency (Acute) Type 2 diabetes mellitus with foot ulcer (Acute) Subjective: patient is seen this am for follow-up left foot ulceration. denies n/v/f/c. has no pain. Objective: patient is alert and orientated x 3. does not appear in any distress left foot with ulceration that measures 5 mm x 9 mm x 2 mm depth. no purulence noted. no redness present. no local signs of infection. mri with no evidence of abscess or bone infection wound culture pending - Physical Exam Vitals/I&O's: Vital Signs Temp Pulse Resp BP Pulse Ox 98.4 F 70 17 159/66 H 95 04/02/20 03:20 04/02/20 03:20 04/02/20 03:20 04/02/20 03:20 04/02/20 03:20 Oxygen Delivery Method Room Air Weight: 85.5 kg Body Mass Index (BMI) 29.3 Intake and Output for Last 24 Hours 03/31/20 04/01/20 04/02/20 23:59 23:59 23:59 Intake Total 540 / 540 800 / 800 200 / 200 Balance 540 / 540 800 / 800 200 / 200 Laboratory Results 04/01/20 12:09: POC Glucose 317 H 04/01/20 16:33: POC Glucose 331 H 04/01/20 21:24: POC Glucose 290 H 04/02/20 06:39: POC Glucose 381 H Current Medications Acetaminophen (Tylenol) 650 mg PO Q6H PRN PRN PRN Reason: Pain Score 1-10/Temp > 100.7 F Last Admin: 03/31/20 09:18 Dose: 650 mg Documented by: Atorvastatin Calcium (Lipitor) 5 mg PO QHS [facility] Last Admin: 04/01/20 21:26 Dose: 5 mg Documented by: Bupropion HCl (Wellbutrin Tablets) 100 mg PO DAILY [facility] Last Admin: 04/01/20 09:58 Dose: 100 mg Documented by: Carvedilol (Coreg) 25 mg PO BID [facility] Last Admin: 04/01/20 21:26 Dose: 25 mg Documented by: Cephalexin (Keflex) 250 mg PO Q8 [facility] Last Admin: 04/02/20 06:40 Dose: 250 mg Documented by: Clonidine (Catapres) 0.1 mg PO BID [facility] Last Admin: 04/01/20 21:26 Dose: 0.1 mg Documented by: Dextrose (D50w Syringe) 0 gm IV X1 PRN; Protocol PRN Reason: Hypoglycemia Ferrous Sulfate (Ferrous Sulfate) 325 mg PO DAILY@1200 [facility] Last Admin: 04/01/20 12:43 Dose: 325 mg Documented by: Glucagon () 1 mg IM .X1 PRN PRN Reason: Hypoglycemia Heparin Sodium (Porcine) (Heparin Na) 5,000 unit SC Q8 [facility] Last Admin: 04/02/20 06:39 Dose: 5,000 unit Documented by: Hydralazine HCl (Apresoline Iv) 10 mg IV Q4H PRN PRN PRN Reason: BLOOD PRESSURE Insulin Human Lispro (Humalog Kwikpen (Bkc)) 0 unit SC ACHS [facility]; Protocol Last Admin: 04/02/20 06:40 Dose: 4 units Documented by: Loratadine (Claritin) 10 mg PO DAILY [facility] Last Admin: 04/01/20 09:58 Dose: 10 mg Documented by: Losartan Potassium (Cozaar) 50 mg PO BID [facility] Last Admin: 04/01/20 21:27 Dose: 50 mg Documented by: Ondansetron HCl (Zofran) 4 mg IV Q8H PRN PRN PRN Reason: NAUSEA/VOMITING Pantoprazole Sodium (Protonix) 20 mg PO DAILY [facility] Last Admin: 04/01/20 09:58 Dose: 20 mg Documented by: Sodium Chloride () 10 - 40 ml IV UD PRN PRN Reason: SALINE FLUSH Trazodone HCl (Desyrel) 100 mg PO QHS [facility] Last Admin: 04/01/20 21:26 Dose: 100 mg Documented by: Medical Necessity - Tobacco Use Smoking Status: Never smoker Tobacco Use: Non-smoker Assessment/Plan All Active Problems Hypertensive emergency (Acute) Type 2 diabetes mellitus with foot ulcer (Acute) patient was examined and we reviewed mri. mri has no evidence of osteomyelitis. there is no evidence of abscess. at this time, I will have patient continue with aquacel applied to wound daily. continue with post-op shoe and nwb with walker to left foot. patient on keflex and tolerating. patient will require keflex 500 mg tid x 7 days at discharge. I will monitor cultures as outpatient. if necessary, I will change medication as needed pending culture. patient will f/u in my outpatient clinic in one week. 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 ok for discharge from podiatry stand point.
--- NOTE | 2020-04-02 08:45 | PN_ITS ---
Reason for Visit: Late entry note: Patient was seen on 04/01/20 am. Patient could not be discharged on 04/01/20 because MRI was pending. Subjective: Patient was seen and examined. Denied any new complaint. Denied any headaches. Denied any dizziness palpitation. Objective: General: Alert, Oriented x3, Cooperative, No apparent distress, - - In mild discomfort. HEENT: Atraumatic, PERRLA, EOMI, Normocephalic Oral: Moist Mucosa Neck: Supple Lungs: Clear to auscultation, Normal air movement Cardiovascular: Regular rate, Regular Rhythm, Normal S1, Normal S2, No murmurs, Tachycardic Abdomen: Bowel Sounds Present, Soft, Non Tender, Non-Distended, No Hepato- splenomegaly Extremities: No edema Skin: No rashes Musculoskeletal: No Tenderness to Palpation of Joints or Extremities Lymphatic: No Cervical, Supraclavicular, or Inguinal Adenopathy Neurological: Cranial nerves II-XII grossly intact, Neuro grossly intact Psych/Mental Status: Normal Affect, Appropriate Vitals/I&O's: Vital Signs Temp Pulse Resp BP Pulse Ox 98.4 F 76 17 159/66 H 95 04/02/20 03:20 04/02/20 07:00 04/02/20 03:20 04/02/20 03:20 04/02/20 03:20 Oxygen Delivery Method Room Air Weight: 85.5 kg Body Mass Index (BMI) 29.3 Intake and Output for Last 24 Hours 03/31/20 04/01/20 04/02/20 23:59 23:59 23:59 Intake Total 540 / 540 800 / 800 200 / 200 Balance 540 / 540 800 / 800 200 / 200 Laboratory Results 04/01/20 12:09: POC Glucose 317 H 04/01/20 16:33: POC Glucose 331 H 04/01/20 21:24: POC Glucose 290 H 04/02/20 06:39: POC Glucose 381 H Current Medications Acetaminophen (Tylenol) 650 mg PO Q6H PRN PRN PRN Reason: Pain Score 1-10/Temp > 100.7 F Last Admin: 03/31/20 09:18 Dose: 650 mg Documented by: Atorvastatin Calcium (Lipitor) 5 mg PO QHS KARENA Last Admin: 04/01/20 21:26 Dose: 5 mg Documented by: Bupropion HCl (Wellbutrin Tablets) 100 mg PO DAILY [facility] Last Admin: 04/01/20 09:58 Dose: 100 mg Documented by: Carvedilol (Coreg) 25 mg PO BID [facility] Last Admin: 04/01/20 21:26 Dose: 25 mg Documented by: Cephalexin (Keflex) 250 mg PO Q8 [facility] Last Admin: 04/02/20 06:40 Dose: 250 mg Documented by: Clonidine (Catapres) 0.1 mg PO BID [facility] Last Admin: 04/01/20 21:26 Dose: 0.1 mg Documented by: Dextrose (D50w Syringe) 0 gm IV X1 PRN; Protocol PRN Reason: Hypoglycemia Ferrous Sulfate (Ferrous Sulfate) 325 mg PO DAILY@1200 [facility] Last Admin: 04/01/20 12:43 Dose: 325 mg Documented by: Glucagon () 1 mg IM .X1 PRN PRN Reason: Hypoglycemia Heparin Sodium (Porcine) (Heparin Na) 5,000 unit SC Q8 [facility] Last Admin: 04/02/20 06:39 Dose: 5,000 unit Documented by: Hydralazine HCl (Apresoline Iv) 10 mg IV Q4H PRN PRN PRN Reason: BLOOD PRESSURE Insulin Human Lispro (Humalog Kwikpen (Bkc)) 0 unit SC ACHS [facility]; Protocol Last Admin: 04/02/20 06:40 Dose: 4 units Documented by: Loratadine (Claritin) 10 mg PO DAILY [facility] Last Admin: 04/01/20 09:58 Dose: 10 mg Documented by: Losartan Potassium (Cozaar) 50 mg PO BID [facility] Last Admin: 04/01/20 21:27 Dose: 50 mg Documented by: Ondansetron HCl (Zofran) 4 mg IV Q8H PRN PRN PRN Reason: NAUSEA/VOMITING Pantoprazole Sodium (Protonix) 20 mg PO DAILY [facility] Last Admin: 04/01/20 09:58 Dose: 20 mg Documented by: Sodium Chloride () 10 - 40 ml IV UD PRN PRN Reason: SALINE FLUSH Trazodone HCl (Desyrel) 100 mg PO QHS [facility] Last Admin: 04/01/20 21:26 Dose: 100 mg Documented by: STROKE Vital Signs/Narrative: Vital Signs Pulse 04/02/20 07:00 76 Medical Necessity - Tobacco Use Smoking Status: Never smoker Tobacco Use: Non-smoker Assessment/Plan All Active Problems Hypertensive emergency (Acute) Type 2 diabetes mellitus with foot ulcer (Acute) 1. Hypertensive emergency with intractable headache, likely related to inability to sleep, resolved Blood pressure was managed controlled, will continue to monitor 2. Insomnia, related to restless leg Continue on oral iron 3. Mild elevation in troponin likely related to uncontrolled hypertension EKG shows no acute ST-T changes, will continue to monitor 4. Stage IV CKD, creatinine is about the same, will continue to monitor 5. Type II DM, on metformin, hold metformin for today Continue with blood glucose check and insulin sliding scale 6. Depression, continue on trazodone and bupropion 7. DVT prophylaxis with heparin subcu Inpatient E&M: 16692 Subs Hosp L2
[2020-04-02] MEDS: Pantoprazole Sodium 20 MG Tablet PO (09:20)
[2020-04-02] MEDS: Losartan Potassium 50 MG Tablet PO (09:20)
[2020-04-02] MEDS: buPROPion 100 MG Tablet PO (09:20)
[2020-04-02] MEDS: cloNIDine HCl 0.1 MG Tablet PO (09:20)
[2020-04-02] MEDS: Carvedilol 25 MG Tablet PO (09:20)
[2020-04-02] MEDS: Loratadine 10 MG Tablet PO (09:20)
--- NOTE | 2020-04-02 10:08 | NURSING ---
Dr Cheng had been in to see patient this am and change the dressing. will review dressing change again with patient prior to discharge home.
[2020-04-02 12:06] LABS: Bedside Glucose 399 mg/dL (70-110)
--- NOTE | 2020-04-02 12:06 | PHA.DC.MC ---
Pharmacy Service has performed discharge medication reconciliation and counseling for this patient. 1. CEPHALEXIN 250MG PO Q8H X 7 DAYS The patient's discharge medication list was reviewed for discrepancies and discrepancies were resolved. Home Medications Cetirizine HCl [Zyrtec] 10 mg PO DAILY 11/27/14 Losartan Potassium [Cozaar] 50 mg PO BID 11/27/14 Multivit/Folic Acid/Herbal 223 [Estroven Mood and Memory Cplt] 400 mcg PO DAILY 11/27/14 metFORMIN HCl [Glucophage] 500 mg PO BIDCM 11/27/14 Bupropion HCl 100 mg PO DAILY 03/31/20 Clonidine HCl [Catapres] 0.1 mg PO BID 03/31/20 Ferrous Sulfate [Pedia Iron] 45 mg PO DAILY 03/31/20 Liraglutide [Victoza] 1.8 mg SQ DAILY 03/31/20 Lovastatin 20 mg PO QHS 03/31/20 Omeprazole [Prilosec] 20 mg PO DAILY 03/31/20 traZODone [Desyrel] 100 mg PO QHS 03/31/20 Acetaminophen [Tylenol Tablet] 650 mg PO Q6H PRN PRN tab 04/01/20 Cephalexin [Keflex] 250 mg PO Q8 7 Days #21 cap 04/01/20 Carvedilol [Coreg (Beta Jet)] 25 mg PO BID 30 Days #60 tab 04/02/20 The patient was counseled on the following discharge medications and changes in medications for homegoing were reviewed. The Reason for Use, instructions for use, and potential side effects were reviewed for all new medications. The patient's questions regarding all of their medications were answered. The patient was able to verbally demonstrate an understanding of their discharge medications.
== END 2020-04-02 13:09 | disposition home or self-care (01) | DRG 264 ==
LOC: ED 07:32 → PCU 08:00
PROVIDERS: Admitting Provider Internal Medicine; Emergency Provider Emergency Medicine; PCP Internal Medicine; Visit Provider Internal Medicine
DX: I16.1 Hypertensive emergency (principal); N18.4 Chronic kidney disease, stage 4 (severe); I24.8 Other forms of acute ischemic heart disease; I12.9 Hypertensive chronic kidney disease with stage 1 through stage 4 chronic kidney disease, or unspecified chronic kidney disease; E11.22 Type 2 diabetes mellitus with diabetic chronic kidney disease; E11.40 Type 2 diabetes mellitus with diabetic neuropathy, unspecified; E11.621 Type 2 diabetes mellitus with foot ulcer; L97.529 Non-pressure chronic ulcer of other part of left foot with unspecified severity; M20.42 Other hammer toe(s) (acquired), left foot; E78.00 Pure hypercholesterolemia, unspecified; G47.01 Insomnia due to medical condition; G25.81 Restless legs syndrome; F32.9 Major depressive disorder, single episode, unspecified; Z79.84 Long term (current) use of oral hypoglycemic drugs; Z79.899 Other long term (current) drug therapy
CPT/HCPCS: 36415; 70450; 73630; 73718; 80048; 80053; 82962; 83540; 83550; 84484; 85025; 87070; 87077; 87186; 87205; 93005; 97802; 99285; A4216

== ENCOUNTER 2021-01-03 07:04 | Emergency (ER) | payer OTHER, SELFPAY ==
[2020-03-31 08:57] VITALS: BMI 29.3
[2021-01-03 07:05] VITALS: BP 168/79; PULSE 78; RESP 18; TEMP 36.6; O2SAT 99; BMI 30.5
[2021-01-03 07:07] VITALS: BP 168/79; PULSE 78; RESP 18; TEMP 36.6; O2SAT 99
--- NOTE | 2021-01-03 07:33 | ED.VIS.LOWEX ---
HPI History of Present Illness Chief Complaint: Wound Check Informant: patient Onset/Context/Timing Onset: Days (1-2) Context: Gradual Onset Timing: Continuous Quality of Pain: Aching Location: L foot Current Severity: Mild Maximum Severity: Mild Worsened by: walking Relieved by: resting Associated Symptoms Associated Symptoms: Positive for Parasthesia (chronic BLE); Negative for Weakness and Loss of Funtion Narrative Narrative: 55-year-old type II diabetic states 4 days ago she was on her feet for 4 or 5 hours outside while doing lots of yard work. She thinks that was what started getting her chronic left plantar foot wound infected. 2 or 3 days ago, she started noticing a little bit of redness on top of her foot opposite the chronic wound that has been there for about a year. Yesterday, she noticed that the second toe just distal to the wound started getting a little swollen and red as well, she had chills overnight with night sweats and noticed that all of these findings were a little worse today so she presents this morning out of concern for infection. She denies any findings proximal to the forefoot, including groin pain. She otherwise feels well. She has peripheral neuropathy so she does not have a lot of pain but can tell that it sore. She has had some minor mostly clear drainage on gauze dressing from the wound. She had followed with podiatry Dr. Cheng at [facility] for this in the past but she stopped because it was doing so well and doing much better, however it has never closed. [facility] Medical History Diabetes Hyperlipemia Hypertension Iron deficiency anemia Home Medications Cetirizine Hcl [Zyrtec] 10 mg PO DAILY 11/27/14 [History Last Taken Unknown] Estroven Mood and Memory 400 mcg PO DAILY 11/27/14 [History Last Taken Unknown] losartan 50 mg PO BID 11/27/14 [History Last Taken Unknown] bupropion HCl 100 mg PO DAILY 03/31/20 [History Last Taken Unknown] clonidine HCl 0.1 mg PO BID 03/31/20 [History Last Taken Unknown] liraglutide 1.8 mg SQ DAILY 03/31/20 [History Last Taken Unknown] lovastatin 20 mg PO QHS 03/31/20 [History Last Taken Unknown] omeprazole 20 mg PO DAILY 03/31/20 [History Last Taken Unknown] trazodone 100 mg PO QHS 03/31/20 [History Last Taken Unknown] acetaminophen 650 mg PO Q6H PRN PRN tab 04/01/20 [Rx Last Taken Unknown] carvedilol 25 mg PO BID 01/03/21 [History Last Taken Unknown] cephalexin 500 mg PO Q6 #40 capsule 01/03/21 [Rx Last Taken Unknown] glimepiride 1 mg PO BID 01/03/21 [History Last Taken Unknown] hydrochlorothiazide 25 mg PO DAILY 01/03/21 [History Last Taken Unknown] insulin glargine [Lantus Solostar U-100 Insulin] 10 unit SUBCUT QHS 01/03/21 [History Last Taken Unknown] Allergy/AdvReac Type Severity Reaction Status Date / Time lisinopril AdvReac NEEDS Verified 01/03/21 07:07 FOLLOW-UP Social History Smoking Status: Never smoker ROS ROS ED Constitutional Constitutional ED: Reports chills and night sweats; Denies fever(s) Eyes Eyes: Denies change in vision or diplopia ENT ENT ED: Denies rhinorrhea or sore throat Cardiovascular Cardiovascular: Denies chest pain or palpitations Respiratory/Chest Respiratory/Chest: Denies cough or dyspnea Gastrointestinal Gastrointestinal: Denies abdominal pain, diarrhea, nausea or vomiting Genitourinary Genitourinary ED: Denies dysuria or hematuria Musculoskeletal Musculoskeletal: Denies back pain or neck pain Integumentary Reports as per HPI, rash and wounds Neurologic Neurologic: Reports paresthesias RLE and LLE; Denies headache(s) or weakness Psychiatric Psychiatric: Denies anxiety or suicidal thoughts EXAM Physical Exam Const Vital Signs: 01/03/21 07:05 Temperature 97.9 F Temperature Source Temporal Pulse Rate 78 Respiratory Rate 18 Blood Pressure 168/79 H Blood Pressure Mean 108 Pulse Ox 99 Oxygen Delivery Method Room Air Positive well nourished and well developed General Appearance ED: well developed and NAD HEENT Reports moist mucous membranes normocephalic and atraumatic Eyes PERRL and EOMs intact bilaterally Neck full ROM and supple Resp normal respiratory effort and clear to auscultation bilaterally Cardio regular rate, regular rhythm and no murmurs GI non-tender and non-distended Auscultation: normoactive bowel sounds Palpation: soft Back/Spine no CVA tenderness General Back: other FROM Extremity Extremity Narrative: Erythema to the left dorsal forefoot at the base of toes 2-3. Does not progressed proximally. No lymphangitis. Mild tenderness with deep palpation of this area and to the plantar aspect where there is a wound. There is no active drainage from the wound or erythema around it. It looks similar to pictures the patient has of when it was not infected. General Extremety ED: Negative for edema or pulses abnormal General Extremity: Negative for edema or pulses abnormal Neuro oriented x3 and CN's II-XII intact bilaterally Neuro Narrative: Decrease sensation both feet, stable per patient Sensorium / Orientation: awake and alert Motor Exam: strength 5/5 throughout Skin Skin Narrative: Chronic wound to the plantar aspect of the left forefoot. There is no expressible drainage. No surrounding erythema but there is erythema dorsally just opposite this as well as into the second toe with some swelling there. No lymphangitis. No evidence of rash or erythema proximal to the left forefoot and no inguinal lymphadenopathy. MDM MDM MDM Narrative Medical decision making narrative: Patient said whenever she was put on during her admission in April of last year helped and it was just Keflex. She does not have a history of MRSA or Pseudomonas that she knows of that has ever cultured out of anything. This is a relatively mild diabetic foot infection now and she is not septic and does not require admission at this time, nor does she prefer to be admitted if possible. I think it is reasonable to treat outpatient with close outpatient follow-up to begin with, but I would be aggressive in giving her IV antibiotics here. She was given a dose of vancomycin and Ancef and sent home on cephalexin, based on what was done prior. She was comfortable with that overall plan. I did shoot x-rays which confirmed that there is no evidence of osteomyelitis at this time, 3 views left foot my interpretation. I do not think further work-up would really be helpful right now, as this is clearly infection until proven otherwise. 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 Lab Data Attestation: I reviewed the patient's lab results. Labs: Laboratory Results - last 24 hr 01/03/21 08:06 POC Glucose 208 H Discharge Plan Triage Chief Complaint: Wound Check ED Provider: Hardik Le Dx/Rx/DC Orders Clinical Impression: Diabetic infection of left foot, Open wound of plantar aspect of left foot Instructions: ED Wound Check (Infection) Prescriptions: New cephalexin 500 mg capsule 500 mg PO Q6 Qty: 40 RF: 0 No Action losartan 50 MG tablet 50 mg PO BID RF: 0 Estroven Mood and Memory 400 MCG tablet 400 mcg PO DAILY RF: 0 Cetirizine Hcl [Zyrtec] 10 MG tablet 10 mg PO DAILY RF: 0 clonidine HCl 0.1 MG tablet 0.1 mg PO BID RF: 0 bupropion HCl 100 MG tablet 100 mg PO DAILY RF: 0 omeprazole 20 MG capsule 20 mg PO DAILY RF: 0 lovastatin 20 MG tablet 20 mg PO QHS RF: 0 liraglutide 0.6 MG/0.1 ML pen injector 1.8 mg SQ DAILY RF: 0 trazodone 100 MG tablet 100 mg PO QHS RF: 0 acetaminophen 325 MG tablet 650 mg PO Q6H PRN PRN (Reason: Pain Score 1-10/Temp > 100.7 F) RF: 0 carvedilol 25 mg tablet 25 mg PO BID RF: 0 glimepiride 1 mg tablet 1 mg PO BID RF: 0 hydrochlorothiazide 25 mg tablet 25 mg PO DAILY RF: 0 Lantus Solostar U-100 Insulin 100 unit/mL (3 mL) insulin pen 10 unit SUBCUT QHS RF: 0 Primary Care Provider: Laura Ennis Referrals: Laura Ennis MD [Primary Care Provider] - Sidney Cheng DPM [STAFF PHYSICIAN] - 3-5 Days Disposition Disposition: Home, self care
--- NOTE | 2021-01-03 07:35 | RAD_ITS ---
STUDY: X-RAY - LEFT FOOT CLINICAL: Female, 55 years old. Infection TECHNIQUE: 5 view(s) of the foot. COMPARISON: None. FINDINGS: There is an enthesophyte involving the posterior superior calcaneus at the site of insertion of the Achilles tendon. Plantar calcaneal spur. The subtalar and talocalcaneal joints are not clearly visualized. Degenerative changes of the talonavicular joint. Diffuse demineralization of the osseous structures. No demonstrated definite destructive bony process. No acute fracture is seen. Old fracture of the fifth metatarsal. Gas density on the volar aspect of the metatarsophalangeal joint on the lateral view. RAD/Foot min 3 Views IMPRESSION: Demineralization of the osseous structures. Gas densities in the volar aspect of the metatarsophalangeal joint likely due to infectious process. No demonstrated destructive bony process on this examination. If osteomyelitis is still suspected, three-phase bone scan or MRI might be of value. Electronically Signed: Deng Magallanes MD at 8:16 EDT Tel , Service support ,
[2021-01-03] MEDS: Cefazolin 1 GM/50 ML BAG IV (07:50)
[2021-01-03 08:11] LABS: Bedside Glucose 208 mg/dL (70-110)
[2021-01-03 10:28] VITALS: BP 182/83; PULSE 77; RESP 16; TEMP 37.2; O2SAT 99
== END 2021-01-03 10:30 | disposition home or self-care (01) ==
LOC: ED 08:01
PROVIDERS: Emergency Provider Emergency Medicine; PCP Internal Medicine
DX: E11.69 Type 2 diabetes mellitus with other specified complication (principal); L08.9 Local infection of the skin and subcutaneous tissue, unspecified; S91.302A Unspecified open wound, left foot, initial encounter; X58.XXXA Exposure to other specified factors, initial encounter; Y93.9 Activity, unspecified; Y92.9 Unspecified place or not applicable; Y99.9 Unspecified external cause status; M79.89 Other specified soft tissue disorders; E11.40 Type 2 diabetes mellitus with diabetic neuropathy, unspecified; I10 Essential (primary) hypertension; E78.5 Hyperlipidemia, unspecified; D50.9 Iron deficiency anemia, unspecified; Z79.4 Long term (current) use of insulin; Z79.899 Other long term (current) drug therapy
CPT/HCPCS: 73630; 82962; 96365; 96366; 96367; 99283; J7050; A4216

== ENCOUNTER 2021-03-22 14:45 | Emergency (ER) | payer OTHER, SELFPAY ==
[2021-03-22 14:46] VITALS: BP 114/57; PULSE 70; RESP 15; TEMP 36.1; BMI 31.2
--- NOTE | 2021-03-22 15:07 | RAD_ITS ---
EXAM: XR LEFT SHOULDER COMPLETE, 2 OR MORE VIEWS : 1965 CLINICAL INDICATION: fall TECHNIQUE: Two or more views of the left shoulder. This report was created using [email or web address] report generation technology. COMPARISON: None. FINDINGS: BONES/JOINTS: There is a nondisplaced fracture of the proximal humerus. Humeral head is located in the glenoid fossa. Preservation of the joint space. No sclerotic or destructive changes observed. SOFT TISSUES: Unremarkable. No soft tissue swelling or gas. No radiopaque foreign body. RAD/Shoulder min 2 Views IMPRESSION: Fracture of the humeral neck. There is no dislocation. at 1601 Reported and signed by: Colby Hickman MD Electronically Signed: Colby Hickman MD at 16:00 EDT Tel , Service support ,
--- NOTE | 2021-03-22 15:27 | EDS_ITS ---
HPI History of Present Illness Chief Complaint: Upper Extremity Injury Narrative Narrative: Patient presenting for evaluation secondary to a left arm injury. Patient states that she was seated on a plastic chair this morning and it broke and she fell on an outstretched left arm. She reports pain over the proximal portion of her arm that is worse with palpation and movement. No numbness or weakness. She denies hitting her head or loss of consciousness. Is not any sort of anticoagulants. Patient states that she had some oxycodone from a foot surgery that she had 6 weeks ago that she took and had somewhat improved her pain. Review of systems otherwise negative. [facility] Medical History Diabetes Hyperlipemia Hypertension Iron deficiency anemia Home Medications Cetirizine Hcl [Zyrtec] 10 mg PO DAILY 11/27/14 [History Last Taken Unknown] Estroven Mood and Memory 400 mcg PO DAILY 11/27/14 [History Last Taken Unknown] losartan 50 mg PO BID 11/27/14 [History Last Taken Unknown] bupropion HCl 100 mg PO DAILY 03/31/20 [History Last Taken Unknown] clonidine HCl 0.1 mg PO BID 03/31/20 [History Last Taken Unknown] liraglutide 1.8 mg SQ DAILY 03/31/20 [History Last Taken Unknown] lovastatin 20 mg PO QHS 03/31/20 [History Last Taken Unknown] omeprazole 20 mg PO DAILY 03/31/20 [History Last Taken Unknown] trazodone 100 mg PO QHS 03/31/20 [History Last Taken Unknown] acetaminophen 650 mg PO Q6H PRN PRN tab 04/01/20 [Rx Last Taken Unknown] carvedilol 25 mg PO BID 01/03/21 [History Last Taken Unknown] cephalexin 500 mg PO Q6 #40 capsule 01/03/21 [Rx Last Taken Unknown] glimepiride 1 mg PO BID 01/03/21 [History Last Taken Unknown] hydrochlorothiazide 25 mg PO DAILY 01/03/21 [History Last Taken Unknown] insulin glargine [Lantus Solostar U-100 Insulin] 10 unit SUBCUT QHS 01/03/21 [History Last Taken Unknown] oxycodone-acetaminophen [Percocet] 1 tab PO Q8H PRN 3 Days #9 tab 03/22/21 [Rx Last Taken Unknown] Allergy/AdvReac Type Severity Reaction Status Date / Time lisinopril AdvReac NEEDS Verified 03/22/21 14:46 FOLLOW-UP Social History Smoking Status: Never smoker ROS ROS ED Constitutional Constitutional ED: Denies frequent falls Eyes Eyes: Denies change in vision Cardiovascular Cardiovascular: Denies chest pain Respiratory/Chest Respiratory/Chest: Denies dyspnea Gastrointestinal Gastrointestinal: Denies nausea or vomiting Musculoskeletal Musculoskeletal: Reports other Details: Left arm pain Integumentary Denies Abrasions Neurologic Neurologic: Denies paresthesias or weakness Psychiatric Psychiatric: Denies depression Hematologic/Lymphatic Hematologic/Lymphatic: Denies easy bleeding or easy bruising Allergic/Immunologic Allergic/Immunologic ED: Denies urticaria EXAM Physical Exam Const Vital Signs: 03/22/21 14:46 Temperature 97.0 F L Temperature Source Temporal Pulse Rate 70 Respiratory Rate 15 Blood Pressure 114/57 L Blood Pressure Mean 76 Positive well nourished and well developed General Appearance ED: well developed and NAD HEENT Reports moist mucous membranes Negative for trauma or tenderness Eyes EOMs intact bilaterally Neck full ROM, no lymphadenopathy, supple and no JVD General: Negative for tenderness Chest Wall inspection of chest normal Resp normal respiratory effort and clear to auscultation bilaterally Cardio regular rate, regular rhythm, no murmurs and peripheral pulses 2+ throughout GI normal to inspection, nondistended, normoactive bowel sounds, non-tender and no masses Palpation: soft Back/Spine normal to inspection Extremity Extremity Narrative: Pain on palpation the left upper arm without obvious deformity. No tenderness, limitation of range of motion, or deformity is noted of the elbow forearm wrist or hand with normal distal sensation and pulses. Limited range of motion of the left shoulder secondary to pain. General Extremety ED: Negative for tenderness Neuro oriented x3 and no sensory deficits noted Sensorium / Orientation: alert Motor Exam: strength 5/5 throughout Psych mental status grossly normal Skin no rashes or lesions noted MDM MDM MDM Narrative Medical decision making narrative: Patient presented secondary to a fall. Primary survey required no intervention, secondary survey shows only injury to the proximal left arm. Radiographs by my personal review show a proximal humerus fracture. Patient be placed in a sling and swath. Patient will be sent home with analgesics and follow-up with orthopedics. Patient was discharged in stable condition. Discharge Plan Triage Chief Complaint: Upper Extremity Injury ED Provider: Alex Lyles Dx/Rx/DC Orders Clinical Impression: Closed fracture of left proximal humerus Instructions: ED Fracture, Shoulder Prescriptions: New oxycodone-acetaminophen [Percocet] 5-325 mg tablet 1 tab PO Q8H PRN (Reason: pain) 3 Days Qty: 9 RF: 0 No Action losartan 50 MG tablet 50 mg PO BID RF: 0 Estroven Mood and Memory 400 MCG tablet 400 mcg PO DAILY RF: 0 Cetirizine Hcl [Zyrtec] 10 MG tablet 10 mg PO DAILY RF: 0 clonidine HCl 0.1 MG tablet 0.1 mg PO BID RF: 0 bupropion HCl 100 MG tablet 100 mg PO DAILY RF: 0 omeprazole 20 MG capsule 20 mg PO DAILY RF: 0 lovastatin 20 MG tablet 20 mg PO QHS RF: 0 liraglutide 0.6 MG/0.1 ML pen injector 1.8 mg SQ DAILY RF: 0 trazodone 100 MG tablet 100 mg PO QHS RF: 0 acetaminophen 325 MG tablet 650 mg PO Q6H PRN PRN (Reason: Pain Score 1-10/Temp > 100.7 F) RF: 0 carvedilol 25 mg tablet 25 mg PO BID RF: 0 glimepiride 1 mg tablet 1 mg PO BID RF: 0 hydrochlorothiazide 25 mg tablet 25 mg PO DAILY RF: 0 Lantus Solostar U-100 Insulin 100 unit/mL (3 mL) insulin pen 10 unit SUBCUT QHS RF: 0 cephalexin 500 mg capsule 500 mg PO Q6 Qty: 40 RF: 0 Primary Care Provider: Laura Ennis Referrals: Laura Ennis MD [Primary Care Provider] - Darius Tracy MD [STAFF PHYSICIAN] - 3-5 Days Disposition Disposition: Home, Self Care
== END 2021-03-22 15:51 | disposition home or self-care (01) ==
PROVIDERS: Emergency Provider Emergency Medicine; PCP Internal Medicine
DX: S42.212A Unspecified displaced fracture of surgical neck of left humerus, initial encounter for closed fracture (principal); W07.XXXA Fall from chair, initial encounter; Y93.9 Activity, unspecified; Y92.9 Unspecified place or not applicable; Y99.9 Unspecified external cause status; E11.9 Type 2 diabetes mellitus without complications; E78.5 Hyperlipidemia, unspecified; I10 Essential (primary) hypertension; D50.9 Iron deficiency anemia, unspecified; Z79.4 Long term (current) use of insulin; Z79.899 Other long term (current) drug therapy
CPT/HCPCS: 73030; 99283

== ENCOUNTER 2021-08-24 13:56 | Emergency (ER) | payer OTHER, SELFPAY ==
[2021-08-24 13:58] VITALS: BP 204/94; PULSE 102; RESP 18; TEMP 35; O2SAT 97; BMI 31.9
--- NOTE | 2021-08-24 15:17 | VDLE_ITS ---
Reason For Study: Pain Procedure LEFT This is a venous duplex using B-mode, color GSV is normal. flow and spectral Doppler. CFV is compressible, spontaneous, phasic, Exam performed portable in ED. competent, and demonstrates normal FV visualized with color only, pt unable to augmentation. tolerate compression. FV is compressible, spontaneous, phasic, A preliminary report was called and/or faxed competent and demonstrates normal to Le. augmentation. POP V is compressible, spontaneous, phasic, competent and demonstrates normal augmentation. T/P Trunk is compressible. PTV is compressible. LT PerV is compressible. VL/Venous Duplex US, Unilateral Interpretation Summary There is no evidence of left lower extremity deep vein thrombosis. Left great s aphenous vein appears patent and compressible segmentally. Limitation that femoral vein only visualiz ed with color flow-- unable to compress secondary to pain Ordering Physician: Erik Littlejohn Referring Physician: Laura Ennis Performed By: Heather Watts RVT
--- NOTE | 2021-08-24 15:18 | EDS_ITS ---
HPI History of Present Illness Chief Complaint: Lower Extremity Injury Informant: patient Narrative Narrative: Patient presents with persistent left inner thigh pain since a month ago. States initially going down steps when she felt sudden pain medial thigh. She saw urgent care told abductor strain was put on muscle relaxers and Tylenol. History of stage III chronic kidney disease. She went back to urgent care on the had an ultrasound of that leg that was negative. States pain is just not getting better, she called her PCP office however appointment is not until September. Been using Tylenol last dose was 5 hours ago. No new injuries. States there was bruising slightly to the area that has resolved. However does feel a knot in the area where the pain is. No chest pains or shortness of breath. [facility] Medical History Diabetes Hyperlipemia Hypertension Iron deficiency anemia Home Medications Cetirizine Hcl [Zyrtec] 10 mg PO DAILY 11/27/14 [History Last Taken Unknown] Estroven Mood and Memory 400 mcg PO DAILY 11/27/14 [History Last Taken Unknown] losartan 50 mg PO BID 11/27/14 [History Last Taken Unknown] bupropion HCl 100 mg PO DAILY 03/31/20 [History Last Taken Unknown] clonidine HCl 0.1 mg PO BID 03/31/20 [History Last Taken Unknown] liraglutide 1.8 mg SQ DAILY 03/31/20 [History Last Taken Unknown] lovastatin 20 mg PO QHS 03/31/20 [History Last Taken Unknown] omeprazole 20 mg PO DAILY 03/31/20 [History Last Taken Unknown] trazodone 100 mg PO QHS 03/31/20 [History Last Taken Unknown] acetaminophen 650 mg PO Q6H PRN PRN tab 04/01/20 [Rx Last Taken Unknown] carvedilol 25 mg PO BID 01/03/21 [History Last Taken Unknown] cephalexin 500 mg PO Q6 #40 capsule 01/03/21 [Rx Last Taken Unknown] glimepiride 1 mg PO BID 01/03/21 [History Last Taken Unknown] hydrochlorothiazide 25 mg PO DAILY 01/03/21 [History Last Taken Unknown] insulin glargine [Lantus Solostar U-100 Insulin] 10 unit SUBCUT QHS 01/03/21 [History Last Taken Unknown] oxycodone-acetaminophen [Percocet] 1 tab PO Q8H PRN 3 Days #9 tab 03/22/21 [Rx Last Taken Unknown] oxycodone-acetaminophen [Percocet] 1 tab PO Q6H PRN 3 Days #12 tab 08/24/21 [Rx Last Taken Unknown] Allergy/AdvReac Type Severity Reaction Status Date / Time lisinopril AdvReac NEEDS Verified 08/24/21 13:58 FOLLOW-UP Social History Smoking Status: Never smoker ROS ROS ED Constitutional Constitutional ED: Denies chills, fever(s) or sweats Eyes Eyes: Denies change in vision ENT ENT ED: Denies dysphagia or sore throat Cardiovascular Cardiovascular: Denies chest pain, leg edema, palpitations or racing heartbeat Respiratory/Chest Respiratory/Chest: Denies cough, dyspnea or dyspnea on exertion Gastrointestinal Gastrointestinal: Denies abdominal pain, diarrhea, nausea or vomiting Genitourinary Genitourinary ED: Denies dysuria, hematuria or urinary frequency Musculoskeletal Musculoskeletal: Reports myalgias; Denies back pain, extremity pain or neck pain Integumentary Denies rash or wounds Neurologic Neurologic: Denies headache(s), paresthesias or weakness EXAM Physical Exam Const Vital Signs: 08/24/21 13:58 Temperature 95 F L Temperature Source Temporal Pulse Rate 102 H Respiratory Rate 18 Blood Pressure 204/94 H Blood Pressure Mean 130 Pulse Ox 97 Oxygen Delivery Method Room Air Positive well nourished and well developed General Appearance ED: well developed and NAD HEENT Reports moist mucous membranes normocephalic and atraumatic Eyes PERRL, EOMs intact bilaterally and conjunctivae normal General Eye ED: Yes normal appearance of both eyes Neck no lymphadenopathy and supple General: Negative for tenderness Chest Wall Chest: Negative for tenderness Resp normal respiratory effort and normal air movement Effort and Inspection: symmetric chest movement; Negative for respiratory distress Cardio regular rate, regular rhythm and no murmurs Peripheral Pulses: pulses 2+ throughout GI normal to inspection, nondistended, normoactive bowel sounds and non-tender Palpation: Negative for guarding or rebound tenderness present Back/Spine no CVA tenderness and no thoracic nor lumbar tenderness Extremity Extremity Narrative: Left lower extremity: There is tenderness along the medial thigh distal third noticed fibrous induration around this area. No defect noted, no ecchymosis, no erythema. No calf tenderness. Skin is intact. Neurovascular intact distally. No swelling. General Extremety ED: Negative for edema or tenderness General Extremity: Negative for edema Neuro oriented x3 and no sensory deficits noted Sensorium / Orientation: awake and alert Skin no rashes or lesions noted and no wounds MDM MDM MDM Narrative Medical decision making narrative: Patient exam is consistent for muscle strain. I did obtain ultrasound due to persistent pain in the medial thigh negative for DVT, discussion with sound technician supervisor there was no fluid collection with concerning hematoma or abscess. She is reassured. Troy wrap provided for comfort. With her stage III chronic kidney disease will avoid NSAIDs at this time. She will use Tylenol as needed, short prescription for Percocet to use as needed. Discussed close follow-up with her PCP for physical therapy as an outpatient. Patient understands and agrees with plan. Patient is being discharged under pandemic conditions under declared global, national and state disaster activation, with limited medical resources. Patient and community understands this. Results discussed in layman's terms to the patient satisfaction. All questions answered in layman's terms. Patient understands importance of follow-up care as directed. Patient has been instructed to return to the ED immediately if new symptoms, problems, or questions occur. We mutually agree with the plan of disposition. The patient understand that they may call or return with any questions or concerns at any time. Radiography Diagnostic Testing: Clinical Impression(s) from Imaging Studies Venous Doppler Study 08/24/21 15:17 Interpretation Summary There is no evidence of left lower extremity deep vein thrombosis. Left great saphenous vein appears patent and compressible segmentally. Limitation that femoral vein only visualized with color flow-- unable to compress secondary to pain Ordering Physician: Erik Littlejohn Referring Physician: Laura Ennis Performed By: Heather Watts RVT Discharge Plan Triage Chief Complaint: Lower Extremity Injury ED Provider: Erik Littlejohn Dx/Rx/DC Orders Clinical Impression: Strain of adductor muscle, fascia and tendon of left thigh, subsequent encounter, Chronic kidney disease Instructions: ED Muscle Strain, Extremity Prescriptions: New oxycodone-acetaminophen [Percocet] 5-325 mg tablet 1 tab PO Q6H PRN (Reason: pain) 3 Days Qty: 12 RF: 0 No Action losartan 50 MG tablet 50 mg PO BID RF: 0 Estroven Mood and Memory 400 MCG tablet 400 mcg PO DAILY RF: 0 Cetirizine Hcl [Zyrtec] 10 MG tablet 10 mg PO DAILY RF: 0 clonidine HCl 0.1 MG tablet 0.1 mg PO BID RF: 0 bupropion HCl 100 MG tablet 100 mg PO DAILY RF: 0 omeprazole 20 MG capsule 20 mg PO DAILY RF: 0 lovastatin 20 MG tablet 20 mg PO QHS RF: 0 liraglutide 0.6 MG/0.1 ML pen injector 1.8 mg SQ DAILY RF: 0 trazodone 100 MG tablet 100 mg PO QHS RF: 0 acetaminophen 325 MG tablet 650 mg PO Q6H PRN PRN (Reason: Pain Score 1-10/Temp > 100.7 F) RF: 0 carvedilol 25 mg tablet 25 mg PO BID RF: 0 glimepiride 1 mg tablet 1 mg PO BID RF: 0 hydrochlorothiazide 25 mg tablet 25 mg PO DAILY RF: 0 Lantus Solostar U-100 Insulin 100 unit/mL (3 mL) insulin pen 10 unit SUBCUT QHS RF: 0 cephalexin 500 mg capsule 500 mg PO Q6 Qty: 40 RF: 0 oxycodone-acetaminophen [Percocet] 5-325 mg tablet 1 tab PO Q8H PRN (Reason: pain) 3 Days Qty: 9 RF: 0 Primary Care Provider: Laura Ennis Referrals: Laura Ennis MD [Primary Care Provider] - 2 Days Activity Restrictions/Additional Instructions: DVT study negative of the left leg. Maintain Troy wrap. Pain medicines as prescribed. Call your doctor for follow-up for outpatient therapy. Disposition Disposition: Home, Self Care Discharge Date/Time: 08/24/21 16:51
== END 2021-08-24 16:51 | disposition home or self-care (01) ==
PROVIDERS: Emergency Provider Emergency Medicine; PCP Internal Medicine; Visit Provider Emergency Medicine
DX: S76.212D Strain of adductor muscle, fascia and tendon of left thigh, subsequent encounter (principal); N18.30 Chronic kidney disease, stage 3 unspecified; X58.XXXD Exposure to other specified factors, subsequent encounter
CPT/HCPCS: 93971; 99282

== ENCOUNTER 2022-07-17 13:48 | Emergency (ER) | payer OTHER, SELFPAY ==
[2022-07-17 13:48] VITALS: BP 217/98; PULSE 93; RESP 16; TEMP 36.6; O2SAT 97; BMI 32.5
[2022-07-17 15:31] VITALS: BP 232/121; PULSE 97
--- NOTE | 2022-07-17 15:35 | CT_ITS ---
STUDY: CT BRAIN WITHOUT CONTRAST REASON FOR EXAM: Female, 56 years old. head trauma RADIATION DOSAGE (If Supplied By Facility): CTDIvol = ( 44.99 ) mGy, DLP = ( 1978.61 ) mGycm TECHNIQUE: Transaxial CT imaging of the brain was performed without administration of intravenous contrast material. Individualized dose optimization techniques were used for this CT. COMPARISON: 03/31/2020. FINDINGS: Large left frontal scalp hematoma. Normal calvarium. Normal size ventricles and extra-axial spaces for the patient''s age. Normal white matter tracts of the cerebral hemispheres. Normal basal ganglia and thalami. Normal brainstem. Normal cerebellum. There is no intracranial hemorrhage. There are no findings of an acute ischemic infarction. Normal visualized paranasal sinuses. CT/Brain/Head without Contrast IMPRESSION: Left frontal scalp hematoma. No intracranial findings. Electronically Signed: Cassandra Macias MD at 16:27 EST Reading Location ID and State: [id number] / Tel , Service support ,
--- NOTE | 2022-07-17 15:36 | CT_ITS ---
INDICATION: facial trauma EXAMINATION: CT FACIAL BONES - CT Maxillofacial W/O Contrast Injection TECHNIQUE: Helically acquired images were obtained of the facial bones. A radiation dose optimization technique was used for this scan. IV Contrast dosage and agent: None. COMPARISON: None. FINDINGS: SOFT TISSUES: Large left frontal soft tissue hematoma. VISUALIZED PARANASAL SINUSES: Clear. VISUALIZED MASTOID AIR CELLS: Clear. FACIAL BONES, MANDIBLE AND TMJs: No displaced facial bone fracture. No lytic or blastic abnormality. VISUALIZED DENTITION: No periodontal osseous erosion. ORBITAL CONTENTS: Both globes, extraocular muscles and retrobulbar fat appear unremarkable. CT/Sinus/Facial Bone IMPRESSION: Left frontal soft tissue hematoma. No evidence of fracture. Electronically Signed: Cassandra Macias MD at 16:37 EST Reading Location ID and State: [id number] / Tel , Service support ,
--- NOTE | 2022-07-17 15:37 | CT_ITS ---
INDICATION: trauma EXAMINATION: CT CERVICAL SPINE - CT Spine Cervical W/O Contrast Injection TECHNIQUE: Helically acquired images were obtained of the cervical spine. 2D reformatted images were reviewed. A radiation dose optimization technique was used for this scan. IV Contrast dosage and agent: None. COMPARISON: None. FINDINGS: VERTEBRAE: No fracture or traumatic subluxation. No discrete lytic or blastic abnormality. Normal alignment. Normal craniocervical junction and cervicothoracic junction. DISCS and SPINAL CANAL: No demonstrated fracture. C2-3: Normal disc height and morphology. Normal central canal. Foramina are patent. C3-4: Normal disc height and morphology. Normal central canal. Foramina are patent. C4-5: Normal disc height and morphology. Normal central canal. Foramina are patent. C5-6: Normal disc height and morphology. Normal central canal. Foramina are patent. C6-7: Normal disc height and morphology. Normal central canal. Foramina are patent. C7-T1: Normal disc height and morphology. Normal central canal. Foramina are patent. NECK SOFT TISSUES: No prevertebral soft tissue swelling. There is no cervical adenopathy. LUNG APICES: Clear. CT/Spine Cervical without Contras IMPRESSION: No evidence of acute cervical spinal fracture or spondylolisthesis. Electronically Signed: Cassandra Macias MD at 16:46 EST Reading Location ID and State: [id number] / Tel , Service support ,
--- NOTE | 2022-07-17 15:37 | EX.ED.GENINJ ---
HPI History of Present Illness Chief Complaint: Head Injury Narrative Narrative: 56-year-old female presenting with head injury. She states she was coming down some steps and tripped and fell because she is wearing a walking boot. She landed headfirst onto the concrete. She has a cephalohematoma on the left side of her forehead and some scratches to the nasal bridge. She denies epistaxis. She denies visual complaints, nausea, vomiting. She denies neck pain. No dizziness or lightheadedness. She is not on oral anticoagulation. [facility] Medical History Diabetes Hyperlipemia Hypertension Iron deficiency anemia Home Medications Cetirizine Hcl [Zyrtec] 10 mg PO DAILY allergies 11/27/14 [History Last Taken Unknown] losartan 50 mg tablet 50 mg PO BID blood pressure 11/27/14 [History Last Taken Unknown] multivit w-Ca,xhaszmjm-EY-hqanfy complex no.223 400 mcg tablet (Estroven Mood and Memory) 400 mcg PO DAILY vitamin 11/27/14 [History Last Taken Unknown] bupropion HCl 100 mg tablet 100 mg PO DAILY pain 03/31/20 [History Last Taken Unknown] clonidine HCl 0.1 mg tablet 0.1 mg PO BID blood pressure 03/31/20 [History Last Taken Unknown] liraglutide 0.6 mg/0.1 mL (18 mg/3 mL) subcutaneous pen injector 1.8 mg SQ DAILY diabetes 03/31/20 [History Last Taken Unknown] lovastatin 20 mg tablet 20 mg PO QHS cholesterol 03/31/20 [History Last Taken Unknown] omeprazole 20 mg capsule,delayed release 20 mg PO DAILY reflux 03/31/20 [History Last Taken Unknown] trazodone 100 mg tablet 100 mg PO QHS sleep 03/31/20 [History Last Taken Unknown] acetaminophen 325 mg tablet 650 mg PO Q6H PRN PRN Pain Score 1-10/Temp > 100.7 F 04/01/20 [Rx Last Taken Unknown] carvedilol 25 mg tablet 25 mg PO BID 01/03/21 [History Last Taken Unknown] cephalexin 500 mg capsule 500 mg PO Q6 #40 CAPSULES 01/03/21 [Rx Last Taken Unknown] glimepiride 1 mg tablet 1 mg PO BID 01/03/21 [History Last Taken Unknown] hydrochlorothiazide 25 mg tablet 25 mg PO DAILY 01/03/21 [History Last Taken Unknown] insulin glargine 100 unit/mL (3 mL) subcutaneous pen (Lantus Solostar U-100 Insulin) 10 unit subcut QHS 01/03/21 [History Last Taken Unknown] oxycodone-acetaminophen 5 mg-325 mg tablet (Percocet) 1 tab PO Q8H PRN pain 3 days #9 tabs 03/22/21 [Rx Last Taken Unknown] oxycodone-acetaminophen 5 mg-325 mg tablet (Percocet) 1 tab PO Q6H PRN pain 3 days #12 tabs 08/24/21 [Rx Last Taken Unknown] Allergy/AdvReac Type Severity Reaction Status Date / Time lisinopril AdvReac NEEDS Verified 07/17/22 13:51 FOLLOW-UP Social History Smoking Status: Never smoker ROS ROS ED Constitutional Constitutional ED: Denies chills or fever(s) Eyes Eyes: Denies change in vision ENT ENT ED: Denies rhinorrhea or sore throat Cardiovascular Cardiovascular: Denies chest pain or palpitations Respiratory/Chest Respiratory/Chest: Denies cough or dyspnea Gastrointestinal Gastrointestinal: Denies abdominal pain or constipation Genitourinary Genitourinary ED: Denies dysuria or hematuria Integumentary Reports Abrasions Neurologic Neurologic: Denies headache(s) or paresthesias Psychiatric Psychiatric: Denies anxiety or depression EXAM Physical Exam Const Vital Signs: 07/17/22 13:48 07/17/22 15:31 07/17/22 15:32 Temperature 97.9 F Temperature Source Temporal Pulse Rate 93 97 Respiratory Rate 16 Respiratory Effort Normal Non-Labored Respiratory Depth Normal Respiratory Pattern Normal Blood Pressure 217/98 H 232/121 H Blood Pressure Mean 137 158 Pulse Ox 97 Oxygen Delivery Method Room Air Positive well nourished General Appearance ED: NAD HEENT HEENT Narrative: Large left-sided cephalhematoma to the forehead. There is superficial abrasions to the nasal bridge however it appears midline without deformity. No epistaxis. No nasal septal hematoma. No hemotympanum. No jaw malocclusion. Dentition are intact. Eyes PERRL Neck full ROM Chest Wall inspection of chest normal Resp normal respiratory effort Auscultation: Negative for rales, rhonchi or wheezes Cardio regular rhythm Back/Spine Back/Spine Narrative: No midline cervical spine tenderness, deformity, step-off Neuro oriented x3, CN's II-XII intact bilaterally, moves all extremities, no focal motor deficits, no sensory deficits noted and gait normal Sensorium / Orientation: alert Motor Exam: strength 5/5 throughout Psych mental status grossly normal and thought process normal Skin Skin Narrative: Superficial abrasions over the nasal bridge. MDM MDM MDM Narrative Medical decision making narrative: Patient presenting with cephalhematoma on the left scalp. Neurologic symptoms. She is not dizzy, lightheaded, nauseous. She has no visual complaints. She was able to ambulate after the fall. Obtained a CT brain which is negative for acute intracranial abnormality. No evidence of skull fracture. CT facial bones does not show any facial bone fractures. CT cervical spine negative for acute fracture or subluxation. Patient requested Tylenol for pain. She was counseled that she might see bruising to send down the front of her face and that there will be some color changes associated with this. Return precautions are discussed. Impression: 1. Mechanical fall 2. Cephalohematoma Lab Data Attestation: I reviewed the patient's lab results. Radiography Diagnostic Testing: Clinical Impression(s) from Imaging Studies Brain CT 07/17/22 15:35 IMPRESSION: Left frontal scalp hematoma. No intracranial findings. Electronically Signed: Cassandra Macias MD at 16:27 EST Reading Location ID and State: Ivonne Rodriguez MD Tel , Service support , Facial/Sinus 07/17/22 15:36 IMPRESSION: Left frontal soft tissue hematoma. No evidence of fracture. Electronically Signed: Cassandra Macias MD at 16:37 EST Reading Location ID and State: Ivonne Rodriguez MD Tel , Service support , Cervical Spine CT 07/17/22 15:37 IMPRESSION: No evidence of acute cervical spinal fracture or spondylolisthesis. Electronically Signed: Cassandra Macias MD at 16:46 EST Reading Location ID and State: [id number] / Tel , Service support , Discharge Plan Triage Chief Complaint: Head Injury ED Provider: Dakota León Dx/Rx/DC Orders Instructions: ED Mechanical Fall, ED Hematoma Prescriptions: No Action losartan 50 MG tablet 50 mg PO BID Estroven Mood and Memory 400 MCG tablet 400 mcg PO DAILY Cetirizine Hcl [Zyrtec] 10 MG tablet 10 mg PO DAILY clonidine HCl 0.1 MG tablet 0.1 mg PO BID bupropion HCl 100 MG tablet 100 mg PO DAILY omeprazole 20 MG capsule 20 mg PO DAILY lovastatin 20 MG tablet 20 mg PO QHS liraglutide 0.6 MG/0.1 ML pen injector 1.8 mg SQ DAILY trazodone 100 MG tablet 100 mg PO QHS acetaminophen 325 MG tablet 650 mg PO Q6H PRN PRN (Reason: Pain Score 1-10/Temp > 100.7 F) 0RF carvedilol 25 mg tablet 25 mg PO BID glimepiride 1 mg tablet 1 mg PO BID hydrochlorothiazide 25 mg tablet 25 mg PO DAILY Lantus Solostar U-100 Insulin 100 unit/mL (3 mL) insulin pen 10 unit SUBCUT QHS cephalexin 500 mg capsule 500 mg PO Q6 Qty: 40 0RF oxycodone-acetaminophen [Percocet] 5-325 mg tablet 1 tab PO Q8H PRN (Reason: pain) 3 Days Qty: 9 0RF oxycodone-acetaminophen [Percocet] 5-325 mg tablet 1 tab PO Q6H PRN (Reason: pain) 3 Days Qty: 12 0RF Primary Care Provider: Laura Ennis Referrals: Laura Ennis MD [Primary Care Provider] - Disposition Disposition: Home, Self Care
[2022-07-17] MEDS: Acetaminophen 500 MG Tablet 1000 MG PO (15:41)
[2022-07-17 17:03] VITALS: RESP 16
== END 2022-07-17 17:05 | disposition home or self-care (01) ==
PROVIDERS: Emergency Provider Student in an Organized Health Care Education/Training Program; PCP Internal Medicine; Visit Provider Student in an Organized Health Care Education/Training Program
DX: S09.90XA Unspecified injury of head, initial encounter (principal); E11.9 Type 2 diabetes mellitus without complications; E78.5 Hyperlipidemia, unspecified; I10 Essential (primary) hypertension; W10.9XXA Fall (on) (from) unspecified stairs and steps, initial encounter
CPT/HCPCS: 70450; 70486; 72125; 99282

== ENCOUNTER 2022-12-22 19:20 | Emergency (ER) | payer OTHER, SELFPAY ==
[2022-12-22] VITALS (7 sets, daily range): BP systolic 178–197; BP diastolic 70–81; PULSE 71–79; RESP 16–18; TEMP 36.4; O2SAT 94–100; BMI 34.4
--- NOTE | 2022-12-22 19:31 | RAD_ITS ---
EXAM: XR CHEST, 1 VIEW CLINICAL INDICATION: SOB TECHNIQUE: Frontal view of the chest. COMPARISON: No relevant prior studies available. FINDINGS: LUNGS AND PLEURAL SPACES: There are bilateral pleural effusions slightly larger on the left than on the right. There is minimal bibasilar airspace disease. No pneumothorax. HEART: Unremarkable. Cardiac silhouette not enlarged. MEDIASTINUM: Central airways and mediastinal contour are unremarkable. BONES/JOINTS: Unremarkable. SOFT TISSUES: Unremarkable. RAD/Chest 1 View (Portable) IMPRESSION: Small bilateral effusions likely with minimal bibasilar atelectasis. Electronically Signed: Colby Hickman MD at 19:49 EDT ,
[2022-12-22 19:40] LABS: Absolute Lymphocyte Count 1.25 X10^3/uL (0.83-4.51); Absolute Neutrophil Count 5.7 X10^3/uL (2.0-7.7); Basophil# 0.04 X10^3/uL; Basophil% 0.5 % (0-1); Eosinophil# 0.41 X10^3/uL; Eosinophils% 5.1 % (0-5); Hematocrit 29.2 % (37-47); Hemoglobin 8.8 g/dL (12.0-15.0); Lymphocyte # 1.25 X10^3/ul (0.83-4.51); Lymphocyte % 15.6 % (19-41); Mean Corp Hgb Conc 30.1 g/dL (32-36); Mean Corpuscular Hgb 24.1 pg (27.0-32.0); Mean Platelet Vol. 10.6 fl (6.2-12.0); Monocyte# 0.64 X10^3/uL; NRBC Flagged by Analyzer 0 % (0-5); Neutrophil # 5.65 X10^3/uL (2.7-7.7); Neutrophil % 70.6 % (47-70); Platelet Count 297 K/mm3 (150-450); RBC Distribution Width CV 17.5 % (11.6-14.6); RBC Distribution Width SD 47.8 fl (35.1-43.9); Red Blood Count 3.65 M/mm3 (4.2-5.4)
[2022-12-22 19:57] LABS: Anion Gap 10 (5-15); BUN 73 mg/dL (7-18); BUN/Creat Ratio 8.3 RATIO (10-20); Calcium,Total 8.6 mg/dL (8.5-10.1); Chloride 107 mmol/L (98-107); EST Glomerular Filtration Rate 5 mL/min (>60); Est Glom Filt Rate - Afr Amer 6 mL/min (>60); Estimated Creatinine Clearance 6.86 ml/min; Glucose 173 mg/dL (74-106); Potassium 4.9 mmol/L (3.5-5.1); Sodium Level 136 mmol/L (136-145)
--- NOTE | 2022-12-22 20:07 | ED.RN ---
per pt mychart bun 61 creatinine 8.31 11/23/22
--- NOTE | 2022-12-22 20:40 | EDS_ITS ---
HPI History of Present Illness Chief Complaint: Shortness of Breath Informant: patient Onset/Context/Timing Onset: Days Narrative Narrative: Patient presents secondary to high blood pressure, shortness of breath, fluid retention. She has a history of stage IV chronic kidney disease as well as hypertension. She states for the past several days her blood pressure has been elevated. She has increased her clonidine at home with only minimal improvement. She does report increased fluid retention and states that she had a 13 pound weight gain in the past week. She tried increasing her Lasix. She states that she is scheduled to see Dr. Hernandez next month for a port placement and then she will start dialysis. She does report increased shortness of breath over the past 4 days. [facility] Medical History Chronic kidney disease, stage 4 (severe) Diabetes Hyperlipemia Hypertension Iron deficiency anemia Home Medications Cetirizine Hcl [Zyrtec] 10 mg PO DAILY allergies 11/27/14 [History Last Taken Unknown] losartan 50 mg tablet 50 mg PO BID blood pressure 11/27/14 [History Last Taken Unknown] multivit w-Ca,auxwtqzp-LH-ahxnrj complex no.223 400 mcg tablet (Estroven Mood and Memory) 400 mcg PO DAILY vitamin 11/27/14 [History Last Taken Unknown] bupropion HCl 100 mg tablet 100 mg PO BID pain 03/31/20 [History Last Taken Unknown] clonidine HCl 0.1 mg tablet 0.6 mg PO BID blood pressure 03/31/20 [History Last Taken Unknown] liraglutide 0.6 mg/0.1 mL (18 mg/3 mL) subcutaneous pen injector 1.8 mg SQ DAILY diabetes 03/31/20 [History Last Taken Unknown] lovastatin 20 mg tablet 20 mg PO QHS cholesterol 03/31/20 [History Last Taken Unknown] omeprazole 20 mg capsule,delayed release 20 mg PO DAILY reflux 03/31/20 [History Last Taken Unknown] trazodone 100 mg tablet 100 mg PO QHS sleep 03/31/20 [History Last Taken Unkno wn] carvedilol 25 mg tablet 25 mg PO BID 01/03/21 [History Last Taken Unknown] glimepiride 1 mg tablet 1 mg PO BID 01/03/21 [History Last Taken Unknown] oxycodone-acetaminophen 5 mg-325 mg tablet (Percocet) 1 tab PO Q8H PRN pain 3 days #9 tabs 03/22/21 [Rx Last Taken Unknown] oxycodone-acetaminophen 5 mg-325 mg tablet (Percocet) 1 tab PO Q6H PRN pain 3 days #12 tabs 08/24/21 [Rx Last Taken Unknown] acetaminophen 325 mg tablet 2,000 mg PO Q6H PRN PRN Pain Score 1-10/Temp > 100.7 F 12/22/22 [History Last Taken Unknown] ascorbic acid (vitamin C) 500 mg capsule 500 mg PO DAILY 12/22/22 [History Last Taken Unknown] furosemide 40 mg tablet 40 mg PO DAILY 12/22/22 [History Last Taken Unknown] iron 50 mg iron tablet 3 tab PO DAILY 12/22/22 [History Last Taken Unknown] Allergy/AdvReac Type Severity Reaction Status Date / Time lisinopril AdvReac NEEDS Verified 12/22/22 19:23 FOLLOW-UP Social History Smoking Status: Never smoker ROS ROS ED Constitutional Constitutional ED: Denies chills or fever(s) Eyes Eyes: Denies change in vision or discharge from eye(s) ENT ENT ED: Denies discharge from eye(s), rhinorrhea or sore throat Cardiovascular Cardiovascular: Denies chest pain or palpitations Respiratory/Chest Respiratory/Chest: Reports dyspnea; Denies cough Gastrointestinal Gastrointestinal: Denies abdominal pain, diarrhea, nausea or vomiting Genitourinary Genitourinary ED: Denies dysuria Musculoskeletal Musculoskeletal: Denies back pain or extremity pain Integumentary Denies Abrasions or rash Neurologic Neurologic: Denies headache(s) or weakness Allergic/Immunologic Allergic/Immunologic ED: Denies lip swelling or urticaria EXAM Physical Exam Const Vital Signs: 12/22/22 19:21 12/22/22 19:24 12/22/22 19:24 Temperature 97.6 F L Temperature Source Temporal Pulse Rate 73 Respiratory Rate 18 Respiratory Effort Respiratory Depth Respiratory Pattern Blood Pressure 197/80 H Blood Pressure Mean 119 Pulse Ox 100 96 96 Oxygen Delivery Method Room Air Room Air Room Air 12/22/22 20:03 12/22/22 20:04 12/22/22 20:43 Temperature Temperature Source Pulse Rate Respiratory Rate Respiratory Effort Normal Non-Labored Respiratory Depth Normal Respiratory Pattern Normal Blood Pressure 184/70 H 184/73 H Blood Pressure Mean 108 110 Pulse Ox Oxygen Delivery Method Room Air 12/22/22 22:18 Temperature Temperature Source Pulse Rate 71 Respiratory Rate 16 Respiratory Effort Respiratory Depth Respiratory Pattern Blood Pressure 186/81 H Blood Pressure Mean 116 Pulse Ox 94 Oxygen Delivery Method Positive well nourished and well developed General Appearance ED: well developed HEENT Reports normocephalic and head/scalp atraumatic Eyes PERRL and EOMs intact bilaterally Neck supple Chest Wall inspection of chest normal and palpation of chest normal Resp normal respiratory effort and clear to auscultation bilaterally Cardio regular rate and regular rhythm GI normal to inspection, nondistended, normoactive bowel sounds Palpation: soft Extremity normal to inspection Neuro oriented x3 and no sensory deficits noted Sensorium / Orientation: alert Motor Exam: strength 5/5 throughout Psych mental status grossly normal Skin no rashes or lesions noted MDM MDM MDM Narrative Medical decision making narrative: Patient placed on tank washer. EKG obtained to evaluate for cardiac arrhythmia/ischemia. Labwork obtained to evaluate for leukocytosis, anemia, and electrolyte derangement. Chest x-ray obtained to evaluate for acute lung pathology, cardiac size, or mediastinal abnormality. Patient given 20 mg of IV labetalol. Lab Data Attestation: I reviewed the patient's lab results. Labs: Laboratory Results - last 24 hr 12/22/22 12/22/22 19:35 19:35 WBC 8.0 RBC 3.65 L Hgb 8.8 L Hct 29.2 L MCV 80.0 L MCH 24.1 L MCHC 30.1 L RDW Std Deviation 47.8 H RDW Coeff of Gracy 17.5 H Plt Count 297 MPV 10.6 Immature Gran % (Auto) 0.200 Neut % (Auto) 70.6 H Lymph % (Auto) 15.6 L Cloud % (Auto) 8.0 Eos % (Auto) 5.1 H Baso % (Auto) 0.5 Absolute Neuts (auto) 5.7 Absolute Lymphs (auto) 1.25 Nucleated RBC % 0 Sodium 136 Potassium 4.9 Chloride 107 Carbon Dioxide 19.0 L Anion Gap 10 BUN 73 H Creatinine 8.80 H* Estim Creat Clear Calc 6.86 Est GFR (MDRD) Af Amer 6 L Est GFR (MDRD) Non-Af 5 L BUN/Creatinine Ratio 8.3 L Glucose 173 H Calcium 8.6 Radiography Chest X-Ray - ED: 1 View, Read by ED Physician and - (Small bilateral pleural effusions.) Diagnostic Testing: Clinical Impression(s) from Imaging Studies Chest X-Ray 12/22/22 19:31 IMPRESSION: Small bilateral effusions likely with minimal bibasilar atelectasis. Electronically Signed: Colby Hickman MD at 19:49 EDT , EKG Initial EKG: Attestation: I personally reviewed and interpreted this EKG as follows: Interpretation: Sinus Rhythm (Sinus at 70 with chronic changes, no acute ischemia.) Treatment and Re-Evaluation :: CBC reveals normal white count 8.0. Hemoglobin is 8.8. Hematocrit is 29.2. Chemistry studies reveal a bicarb of 19 with a BUN of 73 and a creatinine of 8.80. Potassium is 4.9. I reviewed prior records and [facility]. Her BUN was 61 and creatinine 8.31 on November 23 of this year. Chest x-ray per my interpretation reveals small bilateral pleural effusions. Radiology interpretation is reviewed and agrees. EKG reveals no ischemia. I spoke with Dr. Sweeney, the patient's embedded linux engineer. He feels the patient does need to be started on dialysis but patient has been reluctant. She tells me she has an appointment next month to see Dr. Hernandez about port placement and then will start dialysis after this. He advised that if the patient wanted to go home and clinically she looks well we could give her 100 to 120 mg of IV Lasix x1 and send her home. If she agreed to initiate dialysis we can start a Lasix drip and get her admitted. After discussing with the patient she wishes to go home as she does not want to have to take dialysis on her vacation which is coming up in 2 weeks. Patient understands that she can return at any time. Addendum: Prior to discharge patient states that she did not feel comfortable leaving with her blood pressure still in the high 180s systolic. She was given an additional 20 mg of labetalol IV. At this time her systolic pressures in the 170s. She is given clonidine as well as losartan which she was due for tonight and missed her evening dose. Discharge Plan Triage Chief Complaint: Shortness of Breath ED Provider: Nkechi Edwards Dx/Rx/DC Orders Clinical Impression: Hypertension, Chronic renal failure Instructions: ED Chronic Kidney Disease (CKD), ED Hypertension, Established Prescriptions: No Action losartan 50 MG tablet 50 mg PO BID Estroven Mood and Memory 400 MCG tablet 400 mcg PO DAILY Cetirizine Hcl [Zyrtec] 10 MG tablet 10 mg PO DAILY clonidine HCl 0.1 MG tablet 0.6 mg PO BID bupropion HCl 100 MG tablet 100 mg PO BID omeprazole 20 MG capsule 20 mg PO DAILY lovastatin 20 MG tablet 20 mg PO QHS liraglutide 0.6 MG/0.1 ML pen injector 1.8 mg SQ DAILY trazodone 100 MG tablet 100 mg PO QHS carvedilol 25 mg tablet 25 mg PO BID glimepiride 1 mg tablet 1 mg PO BID oxycodone-acetaminophen [Percocet] 5-325 mg tablet 1 tab PO Q8H PRN (Reason: pain) 3 Days Qty: 9 0RF oxycodone-acetaminophen [Percocet] 5-325 mg tablet 1 tab PO Q6H PRN (Reason: pain) 3 Days Qty: 12 0RF furosemide 40 mg tablet 40 mg PO DAILY iron 50 mg iron Tablet 3 tab PO DAILY ascorbic acid (vitamin C) 500 mg Capsule 500 mg PO DAILY acetaminophen 325 MG tablet 2,000 mg PO Q6H PRN PRN (Reason: Pain Score 1-10/Temp > 100.7 F) Primary Care Provider: Laura Ennis Referrals: Laura Ennis MD [Primary Care Provider] - Silas Sweeney MD [Med Staff - Consulting] - Keep [facility] appointment Naif Hernandez MD [Non-Staff] - Keep [facility] appointment Disposition Disposition: Home, Self Care
--- NOTE | 2022-12-22 20:40 | EKG12_ITS ---
Test Reason : DYSRHYTHMIA Blood Pressure : / mmHG Vent. Rate : 070 BPM Atrial Rate : 070 BPM P-R Int : 174 ms QRS Dur : 092 ms QT Int : 436 ms P-R-T Axes : 054 020 111 degrees QTc Int : 470 ms Normal sinus rhythm Nonspecific T wave abnormality Prolonged QT Abnormal ECG Confirmed by WESTLEY THURMAN, JOSIAH ([id number]), industrial editor ERNESTINA VALENTIN ([id number]) on 12/23/2022 9:10:15 AM Referred By: SULEIMAN Confirmed By:JOSIAH CHRISTY MD
[2022-12-22] MEDS: Labetalol (Prefilled) 20 MG/4 ML IV ×2 (21:21→22:00)
[2022-12-22] MEDS: hydrALAZINE 20 MG/ML Vial 10 MG IV (22:55)
[2022-12-22] MEDS: Losartan Potassium 50 MG Tablet PO (23:38)
[2022-12-22] MEDS: Furosemide 100 MG/10 ML Vial IV (23:38)
[2022-12-22] MEDS: Clonidine HCl 0.1 MG, Clonidine HCl 0.2 MG 0.3 MG PO (23:38)
== END 2022-12-22 23:49 | disposition home or self-care (01) ==
PROVIDERS: Emergency Provider Emergency Medicine; PCP Internal Medicine; Visit Provider Emergency Medicine
DX: I12.9 Hypertensive chronic kidney disease with stage 1 through stage 4 chronic kidney disease, or unspecified chronic kidney disease (principal); E11.22 Type 2 diabetes mellitus with diabetic chronic kidney disease; N18.4 Chronic kidney disease, stage 4 (severe); E78.5 Hyperlipidemia, unspecified; Z79.84 Long term (current) use of oral hypoglycemic drugs; Z79.899 Other long term (current) drug therapy
CPT/HCPCS: 71045; 80048; 85025; 93005; 94760; 96374; 96375; 96376; 99285; A4216; J1940

== ENCOUNTER 2023-12-06 10:14 | Inpatient (IN) | payer OTHER, SELFPAY ==
[2023-12-06] VITALS (33 sets, daily range): BP systolic 103–155; BP diastolic 56–96; PULSE 16–97; RESP 12–23; TEMP 36.1–37.1; O2SAT 88–100; BMI 26.9
--- NOTE | 2023-12-06 10:16 | CT_ITS ---
STUDY: CT HEAD STROKE PROTOCOL W/O CONTRAST INJECTION REASON FOR EXAM: Female, 58 years old. Neuro deficit, acute, stroke suspected RADIATION DOSAGE (If Supplied By Facility): CTDIvol = ( 44.99 ) mGy, DLP = ( 829.85 ) mGycm TECHNIQUE: Transaxial CT imaging of the brain was performed without administration of intravenous contrast material. Individualized dose optimization techniques were used for this CT. COMPARISON: No relevant priors. FINDINGS: Normal soft tissue structures. Normal calvarium. There is mild cerebral atrophy with widening of the extra-axial spaces and ventricular dilatation. Old 5.5 mm lacunar infarct in the right centrum semiovale. Normal basal ganglia and thalami. Normal brainstem. Normal cerebellum. There is no intracranial hemorrhage. There are no findings of an acute ischemic infarction. Atherosclerotic calcification of the cavernous portions of the internal carotids bilaterally. Normal visualized paranasal sinuses. ASPECT score: 10 CT/STROKE Brain/Head without Cont IMPRESSION: Chronic involutional changes of the brain. N.B. : The above Results were Read Back by José Manuel Miranda MD to Dakota León and understanding confirmed on 12/06/2023 10:39:01 (ET). Electronically Signed: José Manuel Miranda MD at 10:40 EDT ,
--- NOTE | 2023-12-06 10:16 | EKG12_ITS ---
Test Reason : STROKE ALERT Blood Pressure : / mmHG Vent. Rate : 087 BPM Atrial Rate : 087 BPM P-R Int : 178 ms QRS Dur : 092 ms QT Int : 426 ms P-R-T Axes : 058 012 086 degrees QTc Int : 512 ms Sinus rhythm with Premature atrial complexes Septal infarct , age undetermined Prolonged QT Abnormal ECG Confirmed by WESTLEY THURMAN, JOSIAH ([id number]), sound editor FORTUNATO HANDY ([id number]) on 12/08/2023 7:07:15 AM Referred By: Confirmed By:JOSIAH CHRISTY MD
--- NOTE | 2023-12-06 10:17 | RAD_ITS ---
STUDY: X-RAY - PELVIS AND RIGHT HIP REASON FOR EXAM: Female, 58 years old. Pain following a fall. TECHNIQUE: views of the pelvis and hip. COMPARISON: None. FINDINGS: There is a non-specific bowel gas pattern. There are atherosclerotic vascular calcifications of the pelvic arteries. Peritoneal dialysis catheter is seen within the pelvis. Normal bilateral iliac wings, sacroiliac joints and visualized sacrum. Normal bilateral superior and inferior pubic rami. There is narrowing with sclerosis of the pubic symphysis. Normal bilateral ischial tuberosities. Normal visualized femoral head. There is osteoarthritic spur formation of the acetabular rim. There is moderate articular joint space narrowing of the hip. RAD/HIP, UNI W/ Pelvis 2-3 Views IMPRESSION: Degenerative changes. No acute fracture is seen. Electronically Signed: José Manule Miranda MD at 12:16 EDT ,
--- NOTE | 2023-12-06 10:18 | NURSING ---
1007 ETA 2 MIN STROKE ALERT CALLED
--- NOTE | 2023-12-06 10:19 | EDS_ITS ---
HPI History of Present Illness Chief Complaint: Stroke Alert Narrative Narrative: 58-year-old female presenting with strokelike symptoms. She was witnessed to fall in in a parking lot behind her car. Bystanders upon trying to help her and noted she had strokelike symptoms. Patient has slurred speech and difficulty moving her left arm and left leg. She has a left-sided facial droop. Patient states she did not hit her head and denies neck pain. She does have left hip pain as she states she fell on a sidewalk. No history of stroke [facility] Medical History Chronic kidney disease, stage 4 (severe) Diabetes Hyperlipemia Hypertension Iron deficiency anemia Home Medications losartan 50 mg tablet 50 mg PO BID blood pressure 11/27/14 [History Last Taken 12/05/23] bupropion HCl 100 mg tablet 100 mg PO BID pain 03/31/20 [History Last Taken 12/05/23] clonidine HCl 0.1 mg tablet 0.3 mg PO BID blood pressure 03/31/20 [History Last Taken 12/05/23] liraglutide 0.6 mg/0.1 mL (18 mg/3 mL) subcutaneous pen injector 1.8 mg SQ QHS diabetes 03/31/20 [History Last Taken 12/05/23] lovastatin 20 mg tablet 20 mg PO BID cholesterol 03/31/20 [History Last Taken 12/05/23] omeprazole 20 mg capsule,delayed release 20 mg PO DAILY reflux 03/31/20 [History Last Taken 12/05/23] trazodone 100 mg tablet 100 mg PO QHS sleep 03/31/20 [History Last Taken 12/05/23] carvedilol 25 mg tablet 25 mg PO BID 01/03/21 [History Last Taken 12/05/23] glimepiride 1 mg tablet 1 mg PO BID 01/03/21 [History Last Taken 12/05/23] oxycodone-acetaminophen 5 mg-325 mg tablet (Percocet) 1 tab PO Q8H PRN pain 3 days #9 tabs 03/22/21 [Rx Last Taken Unknown] acetaminophen 325 mg tablet 2,000 mg PO Q6H PRN PRN Pain Score 1-10/Temp > 100.7 F 12/22/22 [History Last Taken 12/05/23] furosemide 40 mg tablet 40 mg PO TID 12/22/22 [History Last Taken 12/05/23] amlodipine 5 mg tablet 5 mg PO BID 12/06/23 [History Last Taken 12/05/23] cetirizine 10 mg tablet (24Hour Allergy) 10 mg PO DAILY 12/06/23 [History Last Taken 12/05/23] rosuvastatin 10 mg tablet 10 mg PO QHS 12/06/23 [History Last Taken 12/05/23] Allergy/AdvReac Type Severity Reaction Status Date / Time lisinopril AdvReac NEEDS Verified 12/22/22 19:23 FOLLOW-UP Social History Smoking Status: Never smoker ROS ROS ED Constitutional Constitutional ED: Denies chills, fever(s) or sweats Eyes Eyes: Denies blurry vision or change in vision ENT ENT ED: Denies ear pain or sore throat Cardiovascular Cardiovascular: Denies chest pain, palpitations or racing heartbeat Respiratory/Chest Respiratory/Chest: Denies cough, dyspnea or sputum Gastrointestinal Gastrointestinal: Denies abdominal pain, constipation, diarrhea, nausea or vomiting Genitourinary Genitourinary ED: Denies dysuria, hematuria or urinary frequency Musculoskeletal Musculoskeletal: Denies arthralgias, myalgias or neck pain Integumentary Denies abscess, Abrasions or rash Neurologic Neurologic: Denies headache(s), paresthesias or weakness Psychiatric Psychiatric: Denies anxiety, depression, suicidal ideation or suicidal thoughts Endocrine Endocrinology: Denies polydipsia or polyuria EXAM Physical Exam Const Vital Signs: 12/06/23 10:14 12/06/23 10:16 12/06/23 10:16 Temperature 97.8 F 97.8 F Temperature Source Temporal Temporal Pulse Rate 16 L 85 Respiratory Rate 16 18 Blood Pressure 147/56 H Blood Pressure Mean 86 Blood Pressure Source Blood Pressure Position Blood Pressure Location Pulse Ox 97 98 98 Oxygen Delivery Method Room Air Nasal Cannula Nasal Cannula Oxygen Flow Rate (L/min) 2 2 12/06/23 10:41 12/06/23 10:45 12/06/23 10:48 Temperature 97.8 F 97.8 F Temperature Source Temporal Temporal Pulse Rate 87 89 Respiratory Rate 20 H 18 Blood Pressure 144/62 H 155/82 H 129/80 H Blood Pressure Mean 106 96 Blood Pressure Source Monitor Monitor Blood Pressure Position Semi-Fowlers Semi-Fowlers Blood Pressure Location Right Arm Right Arm Pulse Ox 99 98 Oxygen Delivery Method Nasal Cannula Nasal Cannula Oxygen Flow Rate (L/min) 2 2 12/06/23 11:03 12/06/23 11:14 12/06/23 11:18 Temperature 97.8 F 97.8 F 98.7 F Temperature Source Temporal Temporal Temporal Pulse Rate 88 88 88 Respiratory Rate 16 16 17 Blood Pressure 142/63 H 103/80 Blood Pressure Mean 89 87 Blood Pressure Source Monitor Monitor Blood Pressure Position Semi-Fowlers Semi-Fowlers Blood Pressure Location Right Arm Right Arm Pulse Ox 97 88 99 Oxygen Delivery Method Room Air Room Air Nasal Cannula Oxygen Flow Rate (L/min) 2 Positive well nourished HEENT Reports moist mucous membranes Eyes PERRL and EOMs intact bilaterally Resp normal respiratory effort GI normal to inspection, nondistended, normoactive bowel sounds Neuro oriented x3 Mihir Coma Scale: document GCS findings Spontaneous Obeys Commands Oriented 15 Sensorium / Orientation: alert Psych mental status grossly normal NIHSS NIHSS Initial: 1a Level of Consciousness: 0 1b LOC Questions (Score 2 if aphasic/stupor): 0 1c LOC Commands (Only score 1st attempt): 0 2 Best Gaze (If aphasic, use reflexive mvmts.): 0 3 Visual: 0 4 Facial Palsy: 3 5 Motor Arm Right (UN = amputation/fusion): 0 5 Motor Arm Left: 4 6 Motor Leg Right: 0 6 Motor Leg Left: 4 7 Limb ataxia (Only + if out of proportion): 2 9 Best Language: 2 10 Dysarthria (mute, coma=2, intubated=UN): 1 11 Extinction and Inattention (only scored if +): 0 Total Score: 16 Follow up: 1a Level of Consciousness: 0 1b LOC Questions (Score 2 if aphasic/stupor): 0 1c LOC Commands (Only score 1st attempt): 0 2 Best Gaze (If aphasic, use reflexive mvmts.): 0 3 Visual: 0 4 Facial Palsy: 1 5 Motor Arm Right (UN = amputation/fusion): 0 5 Motor Arm Left: 0 6 Motor Leg Right: 0 6 Motor Leg Left: 0 7 Limb ataxia (Only + if out of proportion): 0 8 Sensory (Aphasia/stupor=0 or 1, coma=2): 2 9 Best Language: 1 10 Dysarthria (mute, coma=2, intubated=UN): 1 11 Extinction and Inattention (only scored if +): 0 Total Score: 5 MDM MDM MDM Narrative Medical decision making narrative: Patient presenting with acute strokelike symptoms. Patient was met at the emergency room door. Initial stroke scale score is 16. She was taken to CT. CT brain did not show any evidence of acute bleed. Patient is a candidate for tenecteplase. We went over this with her and she does want to have it after we discussed the risk and benefits. Tenecteplase was ordered and given. CT brain had not been interpreted yet and there was a delay in getting the neurologist to be min because there was a malfunction with the camera. When the transfer line from [facility] got on the phone and they could not connect me with the neurologist Dr. Washington. They stated that they would call back. I did look at the CT brain and it did not look like there was any acute bleed so we ordered the tenecteplase. Dr. Self was able to call me back at about 1042 and agreed with the tenecteplase and this was given. Reevaluation 10:52 AM NIH stroke scale score down to 5. CBC showed white blood cell count of 8.4. Hemoglobin 9.3. Platelets are normal at 279. Creatinine baseline 6.02 due to renal disease. Potassium slight low at 3.1. High-sensitivity troponin was 28 however the patient did not report any chest pain to me. This may be elevated due to CKD. EKG on my interpretation normal sinus rhythm at a ventricular rate of 87 beats per minutes. Chest x-ray my interpretation showed cardiomegaly. Radiology interprets this and agrees. Patient was discussed with the hospitalist for admission. Admitted to the ICU in stable condition. Impression: 1. CVA 2. Elevated troponin 3. End-stage renal disease Lab Data Labs: Laboratory Results - last 24 hr 12/06/23 10:16 WBC 8.4 RBC 3.90 L Hgb 9.3 L Hct 29.3 L MCV 75.1 L MCH 23.8 L MCHC 31.7 L RDW Std Deviation 45.4 H RDW Coeff of Gracy 16.9 H Plt Count 279 MPV 10.2 Immature Gran % (Auto) 0.800 Neut % (Auto) 66.1 Lymph % (Auto) 20.7 Lee % (Auto) 8.4 Eos % (Auto) 3.4 Baso % (Auto) 0.6 Absolute Neuts (auto) 5.6 Absolute Lymphs (auto) 1.75 Nucleated RBC % 0 PT 14.7 INR 1.2 APTT 29.7 Sodium 136 Potassium 3.1 L Chloride 97 L Carbon Dioxide 31.0 Anion Gap 8 BUN 40 H Creatinine 6.02 H Estim Creat Clear Calc 10.97 Est GFR (MDRD) Af Amer 9 L Est GFR (MDRD) Non-Af 8 L BUN/Creatinine Ratio 6.6 L Glucose 226 H Calcium 8.6 Troponin I High Sens 78 H Radiography Diagnostic Testing: Clinical Impression(s) from Imaging Studies Brain CT 12/06/23 10:16 IMPRESSION: Chronic involutional changes of the brain. N.B. : The above Results were Read Back by José Manuel Miranda MD to Dakota León and understanding confirmed on 12/06/2023 10:39:01 (ET). Electronically Signed: José Manuel Miranda MD at 10:40 EDT , ADDENDUM: 12/06/23 1047 IMPRESSION: Chronic involutional changes of the brain. N.B. : The above Results were Read Back by José Manuel Miranda MD to Dakota León and understanding confirmed on 12/06/2023 10:39:01 (ET). Electronically Signed: José Manuel Miranda MD at 10:40 EDT , Head/Neck CTA 12/06/23 10:22 IMPRESSION: 50-69% stenosis at the origin of the right and left internal carotid arteries due to calcific plaque formation. N.B. : The above Results were Read Back by José Manuel Miranda MD to Dakota León and understanding confirmed on 12/06/2023 11:04:41 (ET). Electronically Signed: José Manuel Miranda MD at 11:05 EDT , ADDENDUM: 12/06/23 1112 IMPRESSION: 50-69% stenosis at the origin of the right and left internal carotid arteries due to calcific plaque formation. N.B. : The above Results were Read Back by José Manuel Miranda MD to Dakota León and understanding confirmed on 12/06/2023 11:04:41 (ET). Electronically Signed: José Manuel Miranda MD at 11:05 EDT , Discharge Plan Disposition Disposition: Acute Care Hospital [facility] Discharge Date/Time: 12/06/23 12:12
--- NOTE | 2023-12-06 10:22 | CT_ITS ---
STUDY: CTA HEAD AND NECK WITH CONTRAST REASON FOR EXAM: Female, 58 years old. Stroke RADIATION DOSAGE (If Supplied By Facility): CTDIvol = ( 15.48 ) mGy, DLP = ( 709.45 ) mGycm TECHNIQUE: CT angiography was performed with a multi-detector CT scanner. Data acquisition was obtained from the skull base through the vertex following intravenous administration of IV 100mL Isovue-370. MIP images were reconstructed from the axial data set. Post-processing of the angiographic images was performed, with multiplanar reformation and 3D reconstruction. Individualized dose optimization techniques were used for this CT. COMPARISON: No relevant priors. FINDINGS: Normal bilateral petrous carotid arteries. There is calcified plaque formation of the right cavernous carotid artery, without a cross-sectional luminal stenosis. There is calcified plaque formation of the left cavernous carotid artery, without a cross-sectional luminal stenosis. Normal right A1 segments of the anterior cerebral artery. Normal left A1 segments of the anterior cerebral artery. Normal intact anterior communicating artery (ACOM). Normal bilateral A2 segments of the anterior cerebral arteries. Normal right M1 and M2 segments of the middle cerebral arteries, with a normal M1 bifurcation. Normal left M1 and M2 segments of the middle cerebral arteries, with a normal M1 bifurcation. Normal right posterior communicating artery (PCOM). Normal left posterior communicating artery (PCOM). Normal bilateral vertebral arteries. Normal basilar artery with a normal basilar bifurcation. The visualized bilateral superior cerebellar (SCA) arteries are normal. Normal bilateral P1, P2 and visualized P3 segments of the posterior cerebral arteries. There is no demonstrated aneurysm of the [place]. Heterogeneous enlargement of both lobes of the thyroid gland. AORTIC ARCH: There is atherosclerotic calcific plaque formation of the aortic arch and great vessels arising from the aortic arch, without a hemodynamically significant stenosis. There is a normal origin of the brachiocephalic, left common carotid, and left subclavian arteries. Atherosclerotic plaque formation at the origin of the left common carotid artery and left subclavian artery. RIGHT CAROTID ARTERIES: Normal right common carotid artery (CCA). Normal right common carotid bulb. There is moderate atherosclerotic plaque formation of the origin of the right internal carotid artery with an estimated stenosis of 50-69% stenosis. Normal visualized cervical portion of the right internal carotid artery. Normal origin of the right external carotid artery (ECA). LEFT CAROTID ARTERIES: Normal left common carotid artery (CCA). Normal left common carotid bulb. There is moderate atherosclerotic plaque formation of the origin of the left internal carotid artery with an estimated stenosis of 50-69% stenosis. Normal visualized cervical portion of the left internal carotid artery. Normal origin of the left external carotid artery (ECA). VERTEBRAL ARTERIES: Normal bilateral vertebral arteries. CT/STROKE CTA Head AND Neck W/Con IMPRESSION: 50-69% stenosis at the origin of the right and left internal carotid arteries due to calcific plaque formation. N.B. : The above Results were Read Back by José Manuel Miranda MD to Dakota León and understanding confirmed on 12/06/2023 11:04:41 (ET). Electronically Signed: José Manuel Miranda MD at 11:05 EDT ,
--- NOTE | 2023-12-06 10:24 | NURSING ---
FACESHEET FAXED TO [facility]
[2023-12-06 10:25] LABS: Absolute Lymphocyte Count 1.75 X10^3/uL (0.83-4.51); Absolute Neutrophil Count 5.6 X10^3/uL (2.0-7.7); Basophil# 0.05 X10^3/uL; Basophil% 0.6 % (0-1); Eosinophil# 0.29 X10^3/uL; Eosinophils% 3.4 % (0-5); Hematocrit 29.3 % (37-47); Hemoglobin 9.3 g/dL (12.0-15.0); Lymphocyte # 1.75 X10^3/ul (0.83-4.51); Lymphocyte % 20.7 % (19-41); Mean Corp Hgb Conc 31.7 g/dL (32-36); Mean Corpuscular Hgb 23.8 pg (27.0-32.0); Mean Corpuscular Volume 75.1 fL (81-99); Mean Platelet Vol. 10.2 fl (6.2-12.0); Monocyte# 0.71 X10^3/uL; Monocyte% 8.4 % (0-10); NRBC Flagged by Analyzer 0 % (0-5); Neutrophil # 5.57 X10^3/uL (2.7-7.7); Neutrophil % 66.1 % (47-70); Platelet Count 279 K/mm3 (150-450); RBC Distribution Width CV 16.9 % (11.6-14.6); RBC Distribution Width SD 45.4 fl (35.1-43.9); White Blood Count 8.4 K/mm3 (4.4-11.0)
--- NOTE | 2023-12-06 10:37 | ED.RN ---
[facility] HAVING ISSUES BEAMING IN TO COMPUTER.
[2023-12-06] MEDS: TENECTEPLASE 2808 MG IV (10:41)
[2023-12-06] MEDS: 0.9% Saline Lock 10 ML Syringe IV ×3 (10:41→12:05)
[2023-12-06 10:49] LABS: Anion Gap 8 (5-15); BUN 40 mg/dL (7-18); BUN/Creat Ratio 6.6 RATIO (10-20); Calcium,Total 8.6 mg/dL (8.5-10.1); Chloride 97 mmol/L (98-107); Creatinine, Serum 6.02 mg/dL (0.55-1.02); EST Glomerular Filtration Rate 8 mL/min (>60); Est Glom Filt Rate - Afr Amer 9 mL/min (>60); Estimated Creatinine Clearance 10.97 ml/min; Glucose 226 mg/dL (74-106); Potassium 3.1 mmol/L (3.5-5.1); Sodium Level 136 mmol/L (136-145); Troponin-I HS 78 pg/mL (3.0-54.0)
[2023-12-06 10:52] LABS: International Normalized Ratio 1.2; Partial Thromboplast Time 29.7 Seconds (24.1-36.2); Prothrombin Time (Protime)PT. 14.7 SECONDS (11.7-14.9)
[2023-12-06] MEDS: 0.9% Normal Saline (1000mL) 1,000 ML 100 ML IV ×2 (10:56→13:27)
--- NOTE | 2023-12-06 11:30 | RAD_ITS ---
STUDY: X-RAY CHEST REASON FOR EXAM: Female, 58 years old. Neuro deficit, acute, stroke suspected TECHNIQUE: Single AP portable view of the chest. COMPARISON: Comparison is made with prior study December 22, 2022. FINDINGS: EKG electrodes are seen. The lungs are clear and expanded. Residual blunting of the left costophrenic angle. There is mild cardiac enlargement. Normal mediastinum and [place]ana. Normal visualized pulmonary arteries. There is atherosclerotic calcification of the aortic arch with tortuosity. There are diffuse degenerative changes of the visualized thoracic spine. Normal visualized ribs, clavicles, and shoulders. There is no demonstrated abnormality of the visualized soft tissue structures of the upper abdomen. RAD/Chest 1 View IMPRESSION: Mild cardiomegaly. Residual blunting of the left costophrenic angle. Electronically Signed: José Manuel Miranda MD at 12:12 EDT ,
--- NOTE | 2023-12-06 11:39 | ECHOD_ITS ---
Reason For Study: TIA/CVA Procedure This was a 2D Doppler, Color Flow transthoracic echocardiogram. The study was technically difficult. Patient was very agitated and restless, unable to hold still for exam. Exam performed portable in ICU/CCU. Left Ventricle Normal LV size. Mild concentric left ventricular hypertrophy. Left ventricular systolic function is normal. The left ventricular ejection fraction is 70 %. Stage 1 diastolic dysfunction. Resting LV gradient 18 mmHg. Valsalva LV gradient 57 mmHg. No regional wall motion abnormalities noted. Right Ventricle Normal RV size. Normal systolic function. Atria Normal left atrium. Normal right atrium. Mitral Valve There is mild to moderate mitral annular calcification. Tricuspid Valve Normal tricuspid valve. Aortic Valve Trisinus/trileaflet aortic valve. Pulmonic Valve Normal pulmonic valve. Great Vessels Normal aortic root. The pulmonary artery is normal size. Normal inferior vena cava. Pericardium/Pleural No pericardial effusion. Medication Performed a rapid injection of agitated mix of 9 cc saline and 1cc air to assess for atrial septal defect. MMode/2D Measurements & Calculations LVIDd: 2.7 cm IVSd: 1.3 cm LVOT diam: 2.0 cm LVIDs: 1.8 cm LVPWd: 1.2 cm RVDd: 3.1 cm FS: 33.4 % LVOT area: 3.1 cm2 Ao root diam: 3.2 cm LAV(MOD-bp): 68.5 ml LVAd ap4: 17.8 cm2 LAV(MOD-bp) Indexed: 36.1 ml/m2 LVLd ap4: 6.7 cm LAV(MOD-sp2): 67.0 ml EDV(MOD-sp4): 39.5 ml LAV(MOD-sp4): 61.8 ml EDV(sp4-el): 40.5 ml LVAs ap4: 7.9 cm2 LVLs ap4: 5.3 cm ESV(MOD-sp4): 10.4 ml ESV(sp4-el): 10.0 ml EF(MOD-sp4): 73.8 % EF(sp4-el): 75.4 % LVAd ap2: 23.6 cm2 SV(MOD-sp4): 29.2 ml SV(MOD-sp2): 39.9 ml LVLd ap2: 7.9 cm EDV(MOD-sp2): 56.0 ml EDV(sp2-el): 59.8 ml LVAs ap2: 10.6 cm2 LVLs ap2: 6.2 cm ESV(MOD-sp2): 16.1 ml ESV(sp2-el): 15.5 ml EF(MOD-sp2): 71.2 % SV(sp4-el): 30.5 ml LA dimension(2D): 3.8 cm LA A4 area: 21.3 cm2 RA A4 area: 14.7 cm2 TAPSE: 2.0 cm Time Measurements MV dec time: 0.15 sec Doppler Measurements & Calculations MV E max constantin: 106.5 cm/sec Lat Peak E' Constantin: 11.6 cm/sec Med Peak E' Constantin: 6.9 cm/sec MV A max constantin: 166.2 cm/sec E/E' lat: 9.2 E/E' med: 15.4 MV E/A: 0.64 Ao V2 max: 187.2 cm/sec LV V1 max: 170.1 cm/sec MV dec slope: 702.9 cm/sec2 Ao max P.0 mmHg LV V1 max P.6 mmHg Ao V2 mean: 143.9 cm/sec LV V1 mean P.0 mmHg Ao mean P.9 mmHg LV V1 mean: 127.8 cm/sec Ao V2 VTI: 34.1 cm LV V1 VTI: 32.8 cm AV (velocity ratio): 0.96 MAEGAN(I,D): 3.0 cm2 MAEGAN(V,D): 2.8 cm2 SV(LVOT): 101.4 ml PA V2 max: 113.2 cm/sec PA max PG (full): 2.2 mmHg ECHO/Echo Complete Interpretation Summary Normal LV size. Mild concentric left ventricular hypertrophy. Left ventricular systolic function is normal. The left ventricular ejection fraction is 70 %. Stage 1 diastolic dysfunction. Resting LV gradient 18 mmHg. Valsalva LV gradient 57 mmHg. Ordering Physician: Ramirez Snow Performed By: Ivy Tovar RDCS and Student
--- NOTE | 2023-12-06 11:55 | NURSING ---
ICU JOPPERI STROKE
--- NOTE | 2023-12-06 12:23 | CHAPLAIN ---
Type of Pastoral Visit _x__ Initial Visit ___ Follow-up Visit ___ On-call Visit ___ General Patient Visit ___ Spiritual Assessment ___ Family Conference ___ Bereavement ___ Rapid Response ___ Code Blue ___ Other (describe below) Pastoral Care Referral From ___ Patient ___ Family ___ Nurse ___ Physician ___ Individual Pension Consultant ___ Director Information _x__ Other (describe below) Sacrament/Intervention _x__ Active listening ___ Anointing ___ Muslim ___ Bereavement ___ Communion ___ Alejandra exploration ___ ___ Life review ___ Prayer ___ Reconciliation ___ Sacrament of Sick _x__ Supportive presence ___ Wedding ___ Other (describe below) Pastoral Comments duriing rounds in the ED for another stroke alert, the house mover supervisor indicated that this patient was a previous stroke alert and might benefit from a supportive visit; met pt and the family member in the room; pt was already improving and feeling better; offer of presence and support received; medical staff continued with evaluations and the visit concluded; pt is open to future visits after admission
[2023-12-06] MEDS: Acetaminophen 325 MG Tablet 650 MG PO (13:26)
[2023-12-06 14:09] LABS: Bedside Glucose 193 mg/dL (74-106)
[2023-12-06] MEDS: LORazepam 2 MG/ML Syringe 0.5 MG IV (14:39)
--- NOTE | 2023-12-06 14:54 | HP.PCM.HOS_ITS ---
HPI - General General Date of Admission: 12/06/23 Date of Service: 12/06/23 Chief Complaint: left sided weakness. HPI Narrative CARLA HAMPTON, is a 58 F who presents presents after falling in a parking lot. Patient was noted to have left-sided weakness. Patient was sent to the emergency room where her NIH was elevated at 16. Try to get a hold of the [facility] neurology but were unsuccessful. Patient received TNK. Patient had improvement of her symptoms during that time. Patient has never had a stroke before. [facility] Medical History Chronic kidney disease, stage 4 (severe) Diabetes Hyperlipemia Hypertension Iron deficiency anemia Home Medications losartan 50 mg tablet 50 mg PO BID blood pressure 11/27/14 [History Last Taken 12/05/23] bupropion HCl 100 mg tablet 100 mg PO BID pain 03/31/20 [History Last Taken 12/05/23] clonidine HCl 0.1 mg tablet 0.3 mg PO BID blood pressure 03/31/20 [History Last Taken 12/05/23] liraglutide 0.6 mg/0.1 mL (18 mg/3 mL) subcutaneous pen injector 1.8 mg SQ QHS diabetes 03/31/20 [History Last Taken 12/05/23] lovastatin 20 mg tablet 20 mg PO BID cholesterol 03/31/20 [History Last Taken 12/05/23] omeprazole 20 mg capsule,delayed release 20 mg PO DAILY reflux 03/31/20 [History Last Taken 12/05/23] trazodone 100 mg tablet 100 mg PO QHS sleep 03/31/20 [History Last Taken 12/05/23] carvedilol 25 mg tablet 25 mg PO BID 01/03/21 [History Last Taken 12/05/23] glimepiride 1 mg tablet 1 mg PO BID 01/03/21 [History Last Taken 12/05/23] oxycodone-acetaminophen 5 mg-325 mg tablet (Percocet) 1 tab PO Q8H PRN pain 3 days #9 tabs 03/22/21 [Rx Last Taken Unknown] acetaminophen 325 mg tablet 2,000 mg PO Q6H PRN PRN Pain Score 1-10/Temp > 100.7 F 12/22/22 [History Last Taken 12/05/23] furosemide 40 mg tablet 40 mg PO TID 12/22/22 [History Last Taken 12/05/23] amlodipine 5 mg tablet 5 mg PO BID 12/06/23 [History Last Taken 12/05/23] cetirizine 10 mg tablet (24Hour Allergy) 10 mg PO DAILY 12/06/23 [History Last Taken 12/05/23] rosuvastatin 10 mg tablet 10 mg PO QHS 12/06/23 [History Last Taken 12/05/23] Allergy/AdvReac Type Severity Reaction Status Date / Time lisinopril AdvReac Severe COUGH Verified 12/06/23 14:01 Family History (Updated 12/06/23 @ 14:[address] Ramirez Snow DO) Other CVA (cerebral vascular accident) Social History Smoking Status: Never smoker ROS ROS Narrative Anxious. All review of systems were negative except as mentioned above in the history of present illness and the other review of systems. Vital Signs Vital Signs Vital Signs: 12/06/23 10:14 12/06/23 10:16 12/06/23 10:16 Temperature 36.6 C 36.6 C Temperature Source Temporal Temporal Pulse Rate 16 L 85 Respiratory Rate 16 18 Blood Pressure 147/56 H Blood Pressure Mean 86 Blood Pressure Source Blood Pressure Position Blood Pressure Location Pulse Ox 97 98 98 Oxygen Delivery Method Room Air Nasal Cannula Nasal Cannula Oxygen Flow Rate (L/min) 2 2 12/06/23 10:41 12/06/23 10:45 12/06/23 10:48 Temperature 36.6 C 36.6 C Temperature Source Temporal Temporal Pulse Rate 87 89 Respiratory Rate 20 H 18 Blood Pressure 144/62 H 155/82 H 129/80 H Blood Pressure Mean 106 96 Blood Pressure Source Monitor Monitor Blood Pressure Position Semi-Fowlers Semi-Fowlers Blood Pressure Location Right Arm Right Arm Pulse Ox 99 98 Oxygen Delivery Method Nasal Cannula Nasal Cannula Oxygen Flow Rate (L/min) 2 2 12/06/23 11:03 12/06/23 11:14 12/06/23 11:18 Temperature 36.6 C 36.6 C 37.1 C Temperature Source Temporal Temporal Temporal Pulse Rate 88 88 88 Respiratory Rate 16 16 17 Blood Pressure 142/63 H 103/80 Blood Pressure Mean 89 87 Blood Pressure Source Monitor Monitor Blood Pressure Position Semi-Fowlers Semi-Fowlers Blood Pressure Location Right Arm Right Arm Pulse Ox 97 88 99 Oxygen Delivery Method Room Air Room Air Nasal Cannula Oxygen Flow Rate (L/min) 2 12/06/23 11:33 12/06/23 11:42 12/06/23 11:48 Temperature 37.1 C 36.4 C L 36.6 C Temperature Source Temporal Temporal Pulse Rate 88 87 89 Respiratory Rate 16 16 14 Blood Pressure 152/69 H 152/69 H 145/85 H Blood Pressure Mean 96 96 105 Blood Pressure Source Monitor Monitor Blood Pressure Position Semi-Fowlers Semi-Fowlers Blood Pressure Location Right Arm Right Arm Pulse Ox 98 99 98 Oxygen Delivery Method Nasal Cannula Nasal Cannula Oxygen Flow Rate (L/min) 2 2 12/06/23 12:08 12/06/23 12:23 12/06/23 12:38 Temperature 36.3 C L 36.3 C L 36.3 C L Temperature Source Temporal Temporal Temporal Pulse Rate 86 87 89 Respiratory Rate 13 14 20 H Blood Pressure 138/69 H 148/86 H 124/81 H Blood Pressure Mean 92 106 95 Blood Pressure Source Monitor Monitor Monitor Blood Pressure Position Semi-Fowlers Semi-Fowlers Semi-Fowlers Blood Pressure Location Left Arm Left Arm Left Arm Pulse Ox 97 95 93 Oxygen Delivery Method Nasal Cannula Nasal Cannula Nasal Cannula Oxygen Flow Rate (L/min) 2 2 2 12/06/23 12:53 12/06/23 13:08 12/06/23 13:09 Temperature 36.4 C L 36.5 C L Temperature Source Temporal Temporal Pulse Rate 85 88 Respiratory Rate 13 20 H Blood Pressure 120/71 120/87 H Blood Pressure Mean 87 98 Blood Pressure Source Monitor Monitor Blood Pressure Position Semi-Fowlers Semi-Fowlers Blood Pressure Location Left Arm Left Arm Pulse Ox 96 98 96 Oxygen Delivery Method Nasal Cannula Nasal Cannula Nasal Cannula Oxygen Flow Rate (L/min) 2 2 2 12/06/23 13:38 12/06/23 14:08 12/06/23 14:30 Temperature 36.5 C L 36.5 C L 36.7 C Temperature Source Temporal Temporal Temporal Pulse Rate 90 91 89 Respiratory Rate 22 H 18 20 H Blood Pressure 137/61 H 134/93 H 138/70 H Blood Pressure Mean 86 106 92 Blood Pressure Source Monitor Monitor Monitor Blood Pressure Position Semi-Fowlers Semi-Fowlers Semi-Fowlers Blood Pressure Location Left Arm Left Arm Left Arm Pulse Ox 99 94 93 Oxygen Delivery Method Nasal Cannula Nasal Cannula Nasal Cannula Oxygen Flow Rate (L/min) 2 2 2 Weight Weight: 78.018 kg Body Mass Index (BMI) 26.9 Physical Exam Const alert and no apparent distress HEENT normocephalic, head/scalp atraumatic, hearing grossly normal bilaterally and moist oral mucous membranes Mouth: oral and palatal mucosa normal Eyes PERRL and EOMs intact bilaterally Neck no lymphadenopathy Resp normal respiratory effort, no retractions, no use of accessory muscles and clear to auscultation bilaterally Cardio regular rate, regular rhythm, S1 normal heart sound and S2 normal heart sound GI normal to inspection, nondistended, normoactive bowel sounds, soft to palpation, non-tender, non-distended and hepatosplenomegaly Extremity normal to inspection and full ROM Neuro oriented x3, CN's II-XII intact bilaterally and moves all extremities Neuro Narrative: Mo strength 5-5 in right upper and right lower extremity. 3-5 in left upper and left lower extremity. Sensorium / Orientation: awake and alert Psych affect normal Results Lab / Micro Data 12/06/23 10:16 12/06/23 10:16 Labs: Laboratory Results - last 24 hr 12/06/23 10:16: WBC 8.4, RBC 3.90 L, Hgb 9.3 L, Hct 29.3 L, MCV 75.1 L, MCH 23.8 L, MCHC 31.7 L, RDW Std Deviation 45.4 H, RDW Coeff of Gracy 16.9 H, Plt Count 279, MPV 10.2, Immature Gran % (Auto) 0.800, Neut % (Auto) 66.1, Lymph % (Auto) 20.7, [place] % (Auto) 8.4, Eos % (Auto) 3.4, Baso % (Auto) 0.6, Absolute Neuts (auto) 5.6, Absolute Lymphs (auto) 1.75, Nucleated RBC % 0, PT 14.7, INR 1.2, APTT 29.7, Sodium 136, Potassium 3.1 L, Chloride 97 L, Carbon Dioxide 31.0, Anion Gap 8, BUN 40 H, Creatinine 6.02 H, Estim Creat Clear Calc 10.97, Est GFR (MDRD) Af Amer 9 L, Est GFR (MDRD) Non-Af 8 L, BUN/Creatinine Ratio 6.6 L, Glucose 226 H, Calcium 8.6, Troponin I High Sens 78 H 12/06/23 13:51: POC Glucose 193 H Imaging Radiology Impression Brain CT 12/06/23 10:16 IMPRESSION: Chronic involutional changes of the brain. N.B. : The above Results were Read Back by José Manuel Miranda MD to Dakota León and understanding confirmed on 12/06/2023 10:39:01 (ET). Electronically Signed: José Manuel Miranda MD at 10:40 EDT , ADDENDUM: 12/06/23 1047 IMPRESSION: Chronic involutional changes of the brain. N.B. : The above Results were Read Back by José Manuel Miranda MD to Dakota León and understanding confirmed on 12/06/2023 10:39:01 (ET). Electronically Signed: José Manuel Miranda MD at 10:40 EDT , Hip/Pelvis X-Ray 12/06/23 10:17 IMPRESSION: Degenerative changes. No acute fracture is seen. Electronically Signed: José Manuel Miranda MD at 12:16 EDT , Head/Neck CTA 12/06/23 10:22 IMPRESSION: 50-69% stenosis at the origin of the right and left internal carotid arteries due to calcific plaque formation. N.B. : The above Results were Read Back by José Manuel Miranda MD to Dakota León and understanding confirmed on 12/06/2023 11:04:41 (ET). Electronically Signed: José Manuel Miranda MD at 11:05 EDT , ADDENDUM: 12/06/23 1112 IMPRESSION: 50-69% stenosis at the origin of the right and left internal carotid arteries due to calcific plaque formation. N.B. : The above Results were Read Back by José Manuel Miranda MD to Dakota León and understanding confirmed on 12/06/2023 11:04:41 (ET). Electronically Signed: José Manuel Miranda MD at 11:05 EDT , Chest X-Ray 12/06/23 11:30 IMPRESSION: Mild cardiomegaly. Residual blunting of the left costophrenic angle. Electronically Signed: José Manuel Miranda MD at 12:12 EDT , Assessment & Plan Assessment/Plan (1) Stroke aborted by administration of thrombolytic agent: PLAN: Plan Acute CVA * Status post TNK. * Patient has had some slow improvement but still has left-sided weakness. * Complete stroke workup with MRI of the brain, 2D echocardiogram, fasting lipid panel, therapy evaluations. End-stage renal disease * On peritoneal dialysis * Discussed with the patient's cousin, who is at bedside. She and her can bring in the patient's dialysis machine and diasylate. * ALVA Sweeney, who will be on consultation. Chronic conditions: * HTN: hold carvedilol, clonidine, furosemide, amlodipine for 24 hour post TNK * Depression: continue bupropion. VTE prophylaxis: SCDs. Charges/Coding Visit Charges Inpatient E&M: 60078 Init Hosp L3
[2023-12-06 15:18] LABS: Hemoglobin A1c 6.9 % (3.8-5.6)
[2023-12-06] MEDS: oxyCODONE 5 MG Tablet PO (16:47)
[2023-12-06] MEDS: Glimepiride 1 MG Tablet PO (16:47)
[2023-12-06 17:03] LABS: Bedside Glucose 212 mg/dL (74-106)
[2023-12-06] MEDS: buPROPion 100 MG Tablet PO (19:58)
[2023-12-06] MEDS: Atorvastatin Calcium 80 MG Tablet PO (19:58)
[2023-12-06] MEDS: Senna/Docusate Sodium 1 Tablet 2 TABLET PO (19:59)
[2023-12-06 20:53] LABS: Bedside Glucose 208 mg/dL (74-106)
[2023-12-07] VITALS (22 sets, daily range): BP systolic 111–161; BP diastolic 52–102; PULSE 75–100; RESP 13–20; TEMP 36.5–37; O2SAT 90–97; BMI 30.7
[2023-12-07] MEDS: 0.9% Normal Saline (1000mL) 1,000 ML 100 ML IV ×2 (00:22→10:22)
[2023-12-07 03:21] LABS: Absolute Lymphocyte Count 1.45 X10^3/uL (0.83-4.51); Absolute Neutrophil Count 9.1 X10^3/uL (2.0-7.7); Basophil# 0.04 X10^3/uL; Basophil% 0.3 % (0-1); Eosinophil# 0.22 X10^3/uL; Eosinophils% 1.9 % (0-5); Hematocrit 26.3 % (37-47); Hemoglobin 8.4 g/dL (12.0-15.0); Lymphocyte # 1.45 X10^3/ul (0.83-4.51); Lymphocyte % 12.4 % (19-41); Mean Corp Hgb Conc 31.9 g/dL (32-36); Mean Corpuscular Hgb 24.2 pg (27.0-32.0); Mean Corpuscular Volume 75.8 fL (81-99); Mean Platelet Vol. 9.8 fl (6.2-12.0); Monocyte# 0.84 X10^3/uL; Monocyte% 7.2 % (0-10); NRBC Flagged by Analyzer 0 % (0-5); Neutrophil # 9.12 X10^3/uL (2.7-7.7); Platelet Count 214 K/mm3 (150-450); RBC Distribution Width CV 16.5 % (11.6-14.6); RBC Distribution Width SD 45.1 fl (35.1-43.9); Red Blood Count 3.47 M/mm3 (4.2-5.4); White Blood Count 11.7 K/mm3 (4.4-11.0)
[2023-12-07 04:03] LABS: ALB/GLOB Ratio 0.6 RATIO (0.9-2.4); AST(SGOT) 12 U/L (15-37); Alanine Aminotransfer ALT/SGPT 14 U/L (13-56); Albumin, Serum 1.8 g/dL (3.2-5.0); Alkaline Phosphatase 60 U/L (45-117); Anion Gap 8 (5-15); BUN 45 mg/dL (7-18); BUN/Creat Ratio 7.4 RATIO (10-20); Calcium,Total 7.8 mg/dL (8.5-10.1); Chloride 100 mmol/L (98-107); Cholesterol 96 mg/dL (200); Creatinine, Serum 6.06 mg/dL (0.55-1.02); EST Glomerular Filtration Rate 8 mL/min (>60); Est Glom Filt Rate - Afr Amer 9 mL/min (>60); Estimated Creatinine Clearance 10.89 ml/min; Globulin 3.1 g/dL (2.2-4.2); Glucose 189 mg/dL (74-106); High Density Lipoprotein 50 mg/dL; Potassium 2.8 mmol/L (3.5-5.1); Protein, Total 4.9 g/dL (6.4-8.2); Sodium Level 137 mmol/L (136-145); Triglycerides 73 mg/dL; Very Low Density Lipoprotein 15 mg/dL (5-40)
[2023-12-07] MEDS: Potassium Chloride Oral Tablet 20 MEQ 40 MEQ PO (05:07)
[2023-12-07] MEDS: 0.9% Saline Lock 10 ML Syringe IV ×2 (05:07→09:41)
--- NOTE | 2023-12-07 06:51 | PN.HOSP_ITS ---
Reason for Visit Reason for Visit: Diagnoses Cerebral infarction, unspecified (12/06/23) Subjective Subjective Feels well. Still with left sided weakness. Objective Data Objective Data Vital Signs: Vital Signs Temp Pulse Resp BP Pulse Ox O2 Del Method O2 Flow Rate 37.0 C 85 18 135/68 H 94 Nasal Cannula 2 12/07/23 04:00 12/07/23 06:00 12/07/23 06:00 12/07/23 06:00 12/07/23 06:00 12/07/23 06:00 12/07/23 06:00 Oxygen Flow Rate (L/min) 2 Oxygen Delivery Method Nasal Cannula Weight: 88.9 kg Body Mass Index (BMI) 30.7 Intake & Output: Intake and Output for Last 24 Hours 12/05/23 12/06/23 12/07/23 23:59 23:59 23:59 Intake Total 1010 / 1010 545 / 545 Output Total 50 / 50 50 / 50 Balance 960 / 960 495 / 495 Lab / Micro Data 12/07/23 03:10 12/07/23 03:10 Labs: Laboratory Results - last 24 hr 12/06/23 10:16: WBC 8.4, RBC 3.90 L, Hgb 9.3 L, Hct 29.3 L, MCV 75.1 L, MCH 23.8 L, MCHC 31.7 L, RDW Std Deviation 45.4 H, RDW Coeff of Gracy 16.9 H, Plt Count 279, MPV 10.2, Immature Gran % (Auto) 0.800, Neut % (Auto) 66.1, Lymph % (Auto) 20.7, [place] % (Auto) 8.4, Eos % (Auto) 3.4, Baso % (Auto) 0.6, Absolute Neuts (auto) 5.6, Absolute Lymphs (auto) 1.75, Nucleated RBC % 0, PT 14.7, INR 1.2, APTT 29.7, Sodium 136, Potassium 3.1 L, Chloride 97 L, Carbon Dioxide 31.0, Anion Gap 8, BUN 40 H, Creatinine 6.02 H, Estim Creat Clear Calc 10.97, Est GFR (MDRD) Af Amer 9 L, Est GFR (MDRD) Non-Af 8 L, BUN/Creatinine Ratio 6.6 L, Glucose 226 H, Hemoglobin A1c 6.9 H, Calcium 8.6, Troponin I High Sens 78 H 12/06/23 13:51: POC Glucose 193 H 12/06/23 16:34: POC Glucose 212 H 12/06/23 20:36: POC Glucose 208 H 12/07/23 03:10: WBC 11.7 H, RBC 3.47 L, Hgb 8.4 L, Hct 26.3 L, MCV 75.8 L, MCH 24.2 L, MCHC 31.9 L, RDW Std Deviation 45.1 H, RDW Coeff of Gracy 16.5 H, Plt Co unt 214, MPV 9.8, Immature Gran % (Auto) 0.200, Neut % (Auto) 78.0 H, Lymph % (Auto) 12.4 L, [place] % (Auto) 7.2, Eos % (Auto) 1.9, Baso % (Auto) 0.3, Absolute Neuts (auto) 9.1 H, Absolute Lymphs (auto) 1.45, Nucleated RBC % 0, Sodium 137, Potassium 2.8 L, Chloride 100, Carbon Dioxide 29.0, Anion Gap 8, BUN 45 H, Creatinine 6.06 H, Estim Creat Clear Calc 10.89, Est GFR (MDRD) Af Amer 9 L, Est GFR (MDRD) Non-Af 8 L, BUN/Creatinine Ratio 7.4 L, Glucose 189 H, Calcium 7.8 L, Total Bilirubin 0.30, AST 12 L, ALT 14, Alkaline Phosphatase 60, Total Protein 4.9 L, Albumin 1.8 L, Globulin 3.1, Albumin/Globulin Ratio 0.6 L, Triglycerides 73, Cholesterol 96, LDL Cholesterol 31, VLDL Cholesterol 15, HDL Cholesterol 50 Radiography Diagnostic Testing: Radiology Impression Brain CT 12/06/23 10:16 IMPRESSION: Chronic involutional changes of the brain. N.B. : The above Results were Read Back by José Manuel Miranda MD to Dakota León and understanding confirmed on 12/06/2023 10:39:01 (ET). Electronically Signed: José Manuel Miranda MD at 10:40 EDT , ADDENDUM: 12/06/23 1047 IMPRESSION: Chronic involutional changes of the brain. N.B. : The above Results were Read Back by José Manuel Miranda MD to Dakota León and understanding confirmed on 12/06/2023 10:39:01 (ET). Electronically Signed: José Manuel Miranda MD at 10:40 EDT , Hip/Pelvis X-Ray 12/06/23 10:17 IMPRESSION: Degenerative changes. No acute fracture is seen. Electronically Signed: José Manuel Miranda MD at 12:16 EDT , Head/Neck CTA 12/06/23 10:22 IMPRESSION: 50-69% stenosis at the origin of the right and left internal carotid arteries due to calcific plaque formation. N.B. : The above Results were Read Back by José Manuel Miranda MD to Dakota León and understanding confirmed on 12/06/2023 11:04:41 (ET). Electronically Signed: José Manuel Miranda MD at 11:05 EDT , ADDENDUM: 12/06/23 1112 IMPRESSION: 50-69% stenosis at the origin of the right and left internal carotid arteries due to calcific plaque formation. N.B. : The above Results were Read Back by José Manuel Miranda MD to Dakota León and understanding confirmed on 12/06/2023 11:04:41 (ET). Electronically Signed: José Manuel Miranda MD at 11:05 EDT , Chest X-Ray 12/06/23 11:30 IMPRESSION: Mild cardiomegaly. Residual blunting of the left costophrenic angle. Electronically Signed: José Manuel Miranda MD at 12:12 EDT , Echocardiogram 12/06/23 11:39 Interpretation Summary Normal LV size. Mild concentric left ventricular hypertrophy. Left ventricular systolic function is normal. The left ventricular ejection fraction is 70 %. Stage 1 diastolic dysfunction. Resting LV gradient 18 mmHg. Valsalva LV gradient 57 mmHg. Ordering Physician: Ramirez Snow Performed By: Ivy Tovar RDCS and Student Physical Exam Const alert and no apparent distress HEENT head/scalp atraumatic and moist oral mucous membranes Eyes PERRL and EOMs intact bilaterally Resp normal respiratory effort, no retractions, no use of accessory muscles and clear to auscultation bilaterally Cardio regular rate, regular rhythm, S1 normal heart sound and S2 normal heart sound GI normal to inspection, nondistended, normoactive bowel sounds, soft to palpation, non-tender and non-distended Extremity normal to inspection and no clubbing, cyanosis or edema Neuro Neuro Narrative: MS 3/5 in LUE and LLE. Sensorium / Orientation: awake and alert Assessment & Plan Assessment/Plan (1) Stroke aborted by administration of thrombolytic agent: PLAN: Plan Acute CVA * Status post TNK on 12/06 * Patient has had some improvement post-TNK, but still with residual left-sided weakness. * Complete stroke workup with MRI of the brain, 2D echocardiogram, fasting lipid panel, therapy evaluations. Neurology saw in ED, will continue consultation in the hospital. * Dr. Abel Bravo of teleneurology if MRI negative can start ASA and enoxaparin. End-stage renal disease * On peritoneal dialysis * Discussed with the patient's cousin, who is at bedside. She and her can bring in the patient's dialysis machine and diasylate. Should be able to bring in today. * ALVA Sweeney, who will be on consultation. Chronic conditions: * HTN: hold carvedilol, clonidine, furosemide, amlodipine for 24 hour post TNK * Depression: continue bupropion. Fall * musculoskeletal pain following * PRN acetaminophen and oxycodone. VTE prophylaxis: SCDs. Charges/Coding Visit Charges Inpatient E&M: 28793 [facility] Hosp L3
[2023-12-07] MEDS: Senna/Docusate Sodium 1 Tablet 2 TABLET PO ×2 (07:46→21:23)
[2023-12-07] MEDS: Glimepiride 1 MG Tablet PO ×2 (07:46→16:25)
[2023-12-07] MEDS: Pantoprazole Sodium 20 MG Tablet PO (07:46)
[2023-12-07] MEDS: buPROPion 100 MG Tablet PO ×2 (07:46→21:24)
[2023-12-07 08:04] LABS: Bedside Glucose 134 mg/dL (74-106)
[2023-12-07] MEDS: oxyCODONE 5 MG Tablet PO ×2 (09:40→19:55)
[2023-12-07] MEDS: LORazepam 2 MG/ML Syringe 0.5 MG IV ×2 (09:41→19:51)
--- NOTE | 2023-12-07 10:07 | CASEMGMT ---
AURELIANO CRUZ Assessment Face to Face with patient for initial transition planning/care coordination assessment. AURELIANO CRUZ introduced self and role at [facility], pt voices understanding. Pt is A&Ox4 and is resting comfortably in bed and is calm. Care providers, pharmacy, and demographics verified. Admitting dx: CVA Post TNK LACE Strata: 2 PCP: Raymon Specialists: [facility] [place]. Dr. Ny (Eyes) Preferred Pharmacy: [facility] [place] Insurance: [employer] Prescription Benefit: Yes LNOK: Cassius Mane (Cousin), Sudeep Lopez (Brother) Living Arrangements: Pt lives alone in a single story home with a BM with a couple steps to enter. Pt states that she recently had a riser put in for her steps. ADLs/IADLs: States normally ind Transportation: Self DME: Lift cushion. Working BGM with supplies. W/C, Cane, FWW, BP cuff, Pulse Ox, walk in shower with GB and chair. HHC/SNF: Denies SNF history. States HHC history from an agency out of [facility] years ago. Pt?s goal: Return to PLOF and return home Plan: TBD. Therapy evals are pending. Pt denies SNF needs at this time. Pt does state that she would be interested in HHC. Pt denies wanting to see a local list of in-network HHC agencies and states that she would like to use [facility] if possible. CM to follow pt progression in the hospital and make referral for HHC once appropriate. José Miguel Tracy RN, CM
--- NOTE | 2023-12-07 10:39 | STROKE.CONS ---
Assessment and Plan: Stroke Assessment/Plan CARLA HAMPTON, is a 58 year old RH Female ex-smoker with a history of CRi, DM, HL, HTN who on 12/06/2023 at 10a fell in the parking lot with left sided weakness. She presented to [facility]. Intial NIHSS 16. CT brain negative. CTA head/neck showed 50-60% BICA stenosis. She was given IVtNK (1041) and post TNK her NIHSS improved to 5. She was admitted to ICU. LDL 31, HgbA1c 6.9 Neurological examination shows left arm/leg weakness, sensory, and neglect, NIHSS 7. ASSESSMENT/PLAN: Acute right MCA ischemic stroke s/p IV TNK (41min) 1) Recommend post-TNK protocol including 24 hr repeat brain imaging (CT or MRI). If negative for hemorrhage, start Aspirn 81mg daily and Lovenox SQ. 2) Recommend stroke work-up including MRI brain, TTE, and Event monitor on discharge. 3) Continue vascular risk factor modification. On lipitor 80. 4) PT/OT consults Messaged primary team with my recommendations. HPI Consult Data Date of Consult: 12/07/23 HPI Narrative HPI Narrative: CARLA HAMPTON, is a 58 year old RH Female ex-smoker with a history of CRi, DM, HL, HTN who on 12/06/2023 at 10a fell in the parking lot with left sided weakness. She presented to [facility]. Intial NIHSS 16. CT brain negative. CTA head/neck showed 50-60% BICA stenosis. She was given IVtNK (1041) and admitted to ICU. This morning patient reports she feels fine and feels at baseline. She is neglectful of her left sided weakness. [facility] Medical History Chronic kidney disease, stage 4 (severe) Diabetes Hyperlipemia Hypertension Iron deficiency anemia Home Medications losartan 50 mg tablet 50 mg PO BID blood pressure 11/27/14 [History Last Taken 12/05/23] bupropion HCl 100 mg tablet 100 mg PO BID pain 03/31/20 [History Last Taken 12/05/23] clonidine HCl 0.1 mg tablet 0.3 mg PO BID blood pressure 03/31/20 [History Last Taken 12/05/23] liraglutide 0.6 mg/0.1 mL (18 mg/3 mL) subcutaneous pen injector 1.8 mg SQ QHS diabetes 03/31/20 [History Last Taken 12/05/23] lovastatin 20 mg tablet 20 mg PO BID cholesterol 03/31/20 [History Last Taken 12/05/23] omeprazole 20 mg capsule,delayed release 20 mg PO DAILY reflux 03/31/20 [History Last Taken 12/05/23] trazodone 100 mg tablet 100 mg PO QHS sleep 03/31/20 [History Last Taken 12/05/23] carvedilol 25 mg tablet 25 mg PO BID 01/03/21 [History Last Taken 12/05/23] glimepiride 1 mg tablet 1 mg PO BID 01/03/21 [History Last Taken 12/05/23] oxycodone-acetaminophen 5 mg-325 mg tablet (Percocet) 1 tab PO Q8H PRN pain 3 days #9 tabs 03/22/21 [Rx Last Taken Unknown] acetaminophen 325 mg tablet 2,000 mg PO Q6H PRN PRN Pain Score 1-10/Temp > 100.7 F 12/22/22 [History Last Taken 12/05/23] furosemide 40 mg tablet 40 mg PO TID 12/22/22 [History Last Taken 12/05/23] amlodipine 5 mg tablet 5 mg PO BID 12/06/23 [History Last Taken 12/05/23] cetirizine 10 mg tablet (24Hour Allergy) 10 mg PO DAILY 12/06/23 [History Last Taken 12/05/23] rosuvastatin 10 mg tablet 10 mg PO QHS 12/06/23 [History Last Taken 12/05/23] Allergy/AdvReac Type Severity Reaction Status Date / Time lisinopril AdvReac Severe COUGH Verified 12/06/23 14:01 Family History (Updated 12/06/23 @ 14:[address] Ramirez Snow DO) Other CVA (cerebral vascular accident) Social History Smoking Status: Never smoker Vital Signs Vital Signs Vital Signs: 12/06/23 10:41 12/06/23 10:45 12/06/23 10:48 Temperature 97.8 F 97.8 F Temperature Source Temporal Temporal Pulse Rate 87 89 Pulse Strength Respiratory Rate 20 H 18 Respiratory Effort Respiratory Depth Respiratory Pattern Blood Pressure 144/62 H 155/82 H 129/80 H Blood Pressure Mean 106 96 Blood Pressure Source Monitor Monitor Blood Pressure Position Semi-Fowlers Semi-Fowlers Blood Pressure Location Right Arm Right Arm Pulse Ox 99 98 Oxygen Delivery Method Nasal Cannula Nasal Cannula Oxygen Flow Rate (L/min) 2 2 12/06/23 11:03 12/06/23 11:14 12/06/23 11:18 Temperature 97.8 F 97.8 F 98.7 F Temperature Source Temporal Temporal Temporal Pulse Rate 88 88 88 Pulse Strength Respiratory Rate 16 16 17 Respiratory Effort Respiratory Depth Respiratory Pattern Blood Pressure 142/63 H 103/80 Blood Pressure Mean 89 87 Blood Pressure Source Monitor Monitor Blood Pressure Position Semi-Fowlers Semi-Fowlers Blood Pressure Location Right Arm Right Arm Pulse Ox 97 88 99 Oxygen Delivery Method Room Air Room Air Nasal Cannula Oxygen Flow Rate (L/min) 2 12/06/23 11:33 12/06/23 11:42 12/06/23 11:48 Temperature 98.7 F 97.6 F L 97.8 F Temperature Source Temporal Temporal Pulse Rate 88 87 89 Pulse Strength Respiratory Rate 16 16 14 Respiratory Effort Respiratory Depth Respiratory Pattern Blood Pressure 152/69 H 152/69 H 145/85 H Blood Pressure Mean 96 96 105 Blood Pressure Source Monitor Monitor Blood Pressure Position Semi-Fowlers Semi-Fowlers Blood Pressure Location Right Arm Right Arm Pulse Ox 98 99 98 Oxygen Delivery Method Nasal Cannula Nasal Cannula Oxygen Flow Rate (L/min) 2 2 12/06/23 12:08 12/06/23 12:23 12/06/23 12:38 Temperature 97.3 F L 97.4 F L 97.4 F L Temperature Source Temporal Temporal Temporal Pulse Rate 86 87 89 Pulse Strength Respiratory Rate 13 14 20 H Respiratory Effort Respiratory Depth Respiratory Pattern Blood Pressure 138/69 H 148/86 H 124/81 H Blood Pressure Mean 92 106 95 Blood Pressure Source Monitor Monitor Monitor Blood Pressure Position Semi-Fowlers Semi-Fowlers Semi-Fowlers Blood Pressure Location Left Arm Left Arm Left Arm Pulse Ox 97 95 93 Oxygen Delivery Method Nasal Cannula Nasal Cannula Nasal Cannula Oxygen Flow Rate (L/min) 2 2 2 12/06/23 12:53 12/06/23 13:08 05/07/24 13:09 Temperature 97.5 F L 97.7 F L Temperature Source Temporal Temporal Pulse Rate 85 88 Pulse Strength Respiratory Rate 13 20 H Respiratory Effort Respiratory Depth Respiratory Pattern Blood Pressure 120/71 120/87 H Blood Pressure Mean 87 98 Blood Pressure Source Monitor Monitor Blood Pressure Position Semi-Fowlers Semi-Fowlers Blood Pressure Location Left Arm Left Arm Pulse Ox 96 98 96 Oxygen Delivery Method Nasal Cannula Nasal Cannula Nasal Cannula Oxygen Flow Rate (L/min) 2 2 2 12/06/23 13:38 12/06/23 14:08 12/06/23 14:30 Temperature 97.7 F L 97.7 F L 98.1 F Temperature Source Temporal Temporal Temporal Pulse Rate 90 91 89 Pulse Strength Respiratory Rate 22 H 18 20 H Respiratory Effort Respiratory Depth Respiratory Pattern Blood Pressure 137/61 H 134/93 H 138/70 H Blood Pressure Mean 86 106 92 Blood Pressure Source Monitor Monitor Monitor Blood Pressure Position Semi-Fowlers Semi-Fowlers Semi-Fowlers Blood Pressure Location Left Arm Left Arm Left Arm Pulse Ox 99 94 93 Oxygen Delivery Method Nasal Cannula Nasal Cannula Nasal Cannula Oxygen Flow Rate (L/min) 2 2 2 12/06/23 15:00 12/06/23 12:08 12/06/23 15:30 Temperature 98.0 F 97.3 F L 98.0 F Temperature Source Temporal Temporal Temporal Pulse Rate 94 86 95 Pulse Strength Respiratory Rate 19 H 13 20 H Respiratory Effort Respiratory Depth Respiratory Pattern Blood Pressure 138/75 H 138/69 H 150/84 H Blood Pressure Mean 96 92 106 Blood Pressure Source Monitor Monitor Monitor Blood Pressure Position Semi-Fowlers Semi-Fowlers Semi-Fowlers Blood Pressure Location Left Arm Right Arm Left Arm Pulse Ox 93 97 99 Oxygen Delivery Method Nasal Cannula Nasal Cannula Nasal Cannula Oxygen Flow Rate (L/min) 2 2 2 12/06/23 12:05 12/06/23 16:00 12/06/23 16:00 Temperature 98.1 F Temperature Source Temporal Pulse Rate 94 Pulse Strength Respiratory Rate 16 Respiratory Effort Normal Non-Labored Normal Non-Labored Respiratory Depth Normal Normal Respiratory Pattern Normal Normal Blood Pressure 143/96 H Blood Pressure Mean 111 Blood Pressure Source Monitor Blood Pressure Position Semi-Fowlers Blood Pressure Location Left Arm Pulse Ox 93 Oxygen Delivery Method Nasal Cannula Nasal Cannula Nasal Cannula Oxygen Flow Rate (L/min) 2 2 2 12/06/23 16:30 12/06/23 17:00 12/06/23 17:30 Temperature 97.8 F 97.8 F 97.9 F Temperature Source Temporal Temporal Temporal Pulse Rate 97 97 81 Pulse Strength Respiratory Rate 14 17 14 Respiratory Effort Respiratory Depth Respiratory Pattern Blood Pressure 147/78 H 127/78 H 122/63 H Blood Pressure Mean 101 94 82 Blood Pressure Source Monitor Monitor Monitor Blood Pressure Position Semi-Fowlers Semi-Fowlers Semi-Fowlers Blood Pressure Location Left Arm Left Arm Left Arm Pulse Ox 96 95 92 Oxygen Delivery Method Nasal Cannula Nasal Cannula Nasal Cannula Oxygen Flow Rate (L/min) 2 2 2 12/06/23 18:00 12/06/23 18:30 12/06/23 19:00 Temperature 97.8 F 97.8 F 97.9 F Temperature Source Temporal Temporal Temporal Pulse Rate 82 82 83 Pulse Strength Respiratory Rate 14 14 15 Respiratory Effort Respiratory Depth Respiratory Pattern Blood Pressure 125/69 H 145/67 H 123/65 H Blood Pressure Mean 87 93 84 Blood Pressure Source Monitor Monitor Monitor Blood Pressure Position Semi-Fowlers Semi-Fowlers Semi-Fowlers Blood Pressure Location Left Arm Left Arm Left Arm Pulse Ox 92 98 97 Oxygen Delivery Method Nasal Cannula Nasal Cannula Nasal Cannula Oxygen Flow Rate (L/min) 2 2 2 12/06/23 20:00 12/06/23 20:11 12/06/23 20:00 Temperature 97.0 F L Temperature Source Temporal Pulse Rate 88 Pulse Strength Weak (1+) Respiratory Rate 23 H Respiratory Effort Normal Non-Labored Respiratory Depth Normal Respiratory Pattern Normal Blood Pressure 136/70 H Blood Pressure Mean 92 Blood Pressure Source Monitor Blood Pressure Position Semi-Fowlers Blood Pressure Location Left Arm Pulse Ox 96 Oxygen Delivery Method Nasal Cannula Nasal Cannula Oxygen Flow Rate (L/min) 2 2 12/06/23 21:00 12/06/23 22:00 12/06/23 23:00 Temperature Temperature Source Pulse Rate 78 73 90 Pulse Strength Respiratory Rate 12 14 20 H Respiratory Effort Respiratory Depth Respiratory Pattern Blood Pressure 130/67 H 112/62 145/81 H Blood Pressure Mean 88 78 102 Blood Pressure Source Monitor Monitor Monitor Blood Pressure Position Semi-Fowlers Semi-Fowlers Semi-Fowlers Blood Pressure Location Left Arm Left Arm Left Arm Pulse Ox 99 100 97 Oxygen Delivery Method Nasal Cannula Nasal Cannula Nasal Cannula Oxygen Flow Rate (L/min) 2 2 2 12/07/23 00:00 12/07/23 00:00 12/07/23 00:10 Temperature 97.7 F L Temperature Source Temporal Pulse Rate 84 84 Pulse Strength Respiratory Rate 18 18 Respiratory Effort Normal Non-Labored Respiratory Depth Normal Respiratory Pattern Normal Blood Pressure 126/64 H 126/64 H Blood Pressure Mean 84 84 Blood Pressure Source Monitor Monitor Blood Pressure Position Semi-Fowlers Semi-Fowlers Blood Pressure Location Right Arm Left Arm Pulse Ox 94 94 Oxygen Delivery Method Nasal Cannula Nasal Cannula Nasal Cannula Oxygen Flow Rate (L/min) 2 2 2 12/07/23 01:00 12/07/23 02:00 12/07/23 03:00 Temperature Temperature Source Pulse Rate 82 83 91 Pulse Strength Respiratory Rate 13 15 13 Respiratory Effort Respiratory Depth Respiratory Pattern Blood Pressure 111/52 L 137/76 H 142/70 H Blood Pressure Mean 71 96 94 Blood Pressure Source Monitor Monitor Monitor Blood Pressure Position Semi-Fowlers Semi-Fowlers Semi-Fowlers Blood Pressure Location Left Arm Left Arm Left Arm Pulse Ox 92 90 95 Oxygen Delivery Method Room Air Room Air Nasal Cannula Oxygen Flow Rate (L/min) 2 12/07/23 04:00 12/07/23 04:00 12/07/23 05:00 Temperature 98.6 F Temperature Source Temporal Pulse Rate 86 90 Pulse Strength Respiratory Rate 18 18 Respiratory Effort Normal Non-Labored Respiratory Depth Normal Respiratory Pattern Normal Blood Pressure 137/97 H 129/69 H Blood Pressure Mean 110 89 Blood Pressure Source Monitor Monitor Blood Pressure Position Semi-Fowlers Semi-Fowlers Blood Pressure Location Left Arm Left Arm Pulse Ox 97 94 Oxygen Delivery Method Nasal Cannula Nasal Cannula Nasal Cannula Oxygen Flow Rate (L/min) 2 2 2 12/07/23 06:00 12/07/23 07:00 12/07/23 07:35 Temperature Temperature Source Pulse Rate 85 86 Pulse Strength Respiratory Rate 18 20 H Respiratory Effort Non-Labored Respiratory Depth Normal Respiratory Pattern Normal Blood Pressure 135/68 H 135/69 H Blood Pressure Mean 90 91 Blood Pressure Source Monitor Monitor Blood Pressure Position Semi-Fowlers Semi-Fowlers Blood Pressure Location Left Arm Left Arm Pulse Ox 94 94 Oxygen Delivery Method Nasal Cannula Nasal Cannula Nasal Cannula Oxygen Flow Rate (L/min) 2 2 2 12/07/23 07:38 12/07/23 08:00 12/07/23 09:00 Temperature 98.4 F Temperature Source Temporal Pulse Rate 91 90 Pulse Strength Weak (1+) Respiratory Rate 18 17 Respiratory Effort Respiratory Depth Respiratory Pattern Blood Pressure 142/67 H 140/73 H Blood Pressure Mean 92 95 Blood Pressure Source Monitor Monitor Blood Pressure Position Semi-Fowlers Semi-Fowlers Blood Pressure Location Left Arm Left Arm Pulse Ox 94 91 Oxygen Delivery Method Room Air Room Air Oxygen Flow Rate (L/min) 12/07/23 10:00 Temperature Temperature Source Pulse Rate 100 Pulse Strength Respiratory Rate 18 Respiratory Effort Respiratory Depth Respiratory Pattern Blood Pressure 145/60 H Blood Pressure Mean 88 Blood Pressure Source Monitor Blood Pressure Position Semi-Fowlers Blood Pressure Location Left Arm Pulse Ox 94 Oxygen Delivery Method Nasal Cannula Oxygen Flow Rate (L/min) 2 Weight Weight: 88.9 kg Body Mass Index (BMI) 30.7 NIHSS NIHSS Nursing Documentation NIHSS Nursing Documentation: Thrombolytic: Vital Signs & NIHSS Start: 12/06/23 10:33 Text: Assess and document vital signs and NIHSS Status: Complete within 15 minutes of tenecteplase bolus administration Freq: [id number],Q2H Protocol: Activity Type Activity Date Activity User E-sign Co-sign Detail Recorded Client Recorded Date Recorded By Document 12/06/23 12:38 BS Desktop 12/06/23 12:40 BS 12/06/23 12:38 Vital Signs [Temperature Protocol: VS] -Temperature (97.8 F-99.1 F) 97.4 F L -Temperature Source Temporal [Pulse] -Pulse Rate (60-100) 89 -Pulse Location Monitor [Respirations] -Respiratory Rate (12-18) 20 H -Respiratory rate source Monitor -Pulse Oximetry 93 -Oxygen Delivery Method Nasal Cannula -O2 L/MIN 2 [Blood Pressure] -Blood Pressure (90/60-120/80) 124/81 H -Blood Pressure Mean 95 -Source Monitor -Position Semi-Fowlers -Blood Pressure Location Left Arm -Is the SBP > or = 180 No -Is the DBP > or = 105 No NIH Stroke Scale [NIHSS] A score of 0 is normal or asymptomatic . Total possible score is 42. Inpatient: RN or Physician to activate a stroke alert for onset of new stroke symptoms or with NIHSS increase >/= 3 points. Following change in neurological status, NIHSS will be performed per physician order or more frequently PRN. -1a. Level of Consciousness Alert; keenly responsive -1b. LOC Questions Answers BOTH questions correctly. -1c. LOC Commands Performs both tasks correctly . -2. Best Gaze Normal -3. Visual No visual loss -4. Facial Palsy Minor paralysis (flattened nasolabial fold , asymmetry on smiling) -5a. Left Arm Some effort against gravity ; -5b. Right Arm No drift; arm holds 90 (or 45 ) degrees for full 10 seconds -6a. Left Leg Some effort against gravity ; -6b. Right Leg No drift; leg holds 30-degree position for full 5 seconds -7. Limb Ataxia Absent -8. Sensory Mild-to- moderate sensory loss; -9. Best Language No aphasia; normal -10. Dysarthria Normal -11. Extinction and Inattention No abnormality -Total 6 Query Text:A score of 0 is normal or asymptomatic. Total possible score is 42 . ED: Notify Physician for NIHSS increase by > / = 3 points. Inpatient: RN or Physician to activate a stroke alert for NIHSS increase of > / = 3 points. Thrombolytic: Vital Signs & NIHSS Start: 12/06/23 12:08 Text: Assess and document vital signs and NIHSS Status: Active within 15 minutes prior to Tenecteplase administration Freq: [id number],Q2H Protocol: Activity Type Activity Date Activity User E-sign Co-sign Detail Recorded Client Recorded Date Recorded By Document 12/07/23 10:00 ARN Desktop 12/07/23 10:14 ARN 12/07/23 10:00 Vital Signs [Pulse] -Pulse Rate (60-100) 100 -Pulse Location Monitor [Respirations] -Respiratory Rate (12-18) 18 -Respiratory rate source Monitor -Pulse Oximetry 94 -Oxygen Delivery Method Nasal Cannula -O2 L/MIN 2 [Blood Pressure] -Blood Pressure (90/60-120/80) 145/60 H -Blood Pressure Mean 88 -Source Monitor -Position Semi-Fowlers -Blood Pressure Location Left Arm -Is the SBP > or = 180 No -Is the DBP > or = 105 No NIH Stroke Scale [NIHSS] A score of 0 is normal or asymptomatic . Total possible score is 42. Inpatient: RN or Physician to activate a stroke alert for onset of new stroke symptoms or with NIHSS increase >/= 3 points. Following change in neurological status, NIHSS will be performed per physician order or more frequently PRN. -1a. Level of Consciousness Alert; keenly responsive -1b. LOC Questions Answers BOTH questions correctly. -1c. LOC Commands Performs both tasks correctly . -2. Best Gaze Normal -3. Visual No visual loss -4. Facial Palsy Normal symmetrical movements -5a. Left Arm Drift; arm drifts downward but doesn?t hit the bed -5b. Right Arm No drift; arm holds 90 (or 45 ) degrees for full 10 seconds -6a. Left Leg Some effort against gravity ; -6b. Right Leg No drift; leg holds 30-degree position for full 5 seconds -7. Limb Ataxia Present in 1 limb -8. Sensory Mild-to- moderate sensory loss; -9. Best Language No aphasia; normal -10. Dysarthria Normal -11. Extinction and Inattention Visual, tactile , auditory, spatial, or personal inattention -Total 6 Query Text:A score of 0 is normal or asymptomatic. Total possible score is 42 . ED: Notify Physician for NIHSS increase by > / = 3 points. Inpatient: RN or Physician to activate a stroke alert for NIHSS increase of > / = 3 points. NIHSS 1a. Level of Consciousness: Alert; keenly responsive 1b. LOC Questions: Answers BOTH questions correctly. 1c. LOC Commands: Performs both tasks correctly. 2. Best Gaze: Normal 3. Visual: No visual loss 4. Facial Palsy: Normal symmetrical movements 5a. Left Arm: Some effort against gravity; 5b. Right Arm: No drift; arm holds 90 (or 45) degrees for full 10 seconds 6a. Left Leg: Some effort against gravity; 6b. Right Leg: No drift; leg holds 30-degree position for full 5 seconds 7. Limb Ataxia: Absent 8. Sensory: Severe to total sensory loss; 9. Best Language: No aphasia; normal 10. Dysarthria: Normal 11. Extinction and Inattention: Visual, tactile, auditory, spatial, or personal inattention Total: 7 Physical Exam Neuro Neuro Narrative: Neurological examination: General: The patient appears nutritionally appropriate, well-groomed, and appears comfortable in no acute distress. Mental Status:? The patient?s mental status was normal including orientation.? Language was intact.? Cranial nerves:? Visual bear full, and extra-ocular motion was intact. Face motion and sensation were symmetric.? Bilateral shoulder shrug was intact. There was no dysarthria. Motor: Normal strength iin right arm and leg. Left hemiparesis. Sensation: Decreased light touch in left arm, + neglect.? Coordination:? Right finger to nose was normal.? There was no dysmetria. Gait:? deferred Lab / Micro Data 12/07/23 03:10 12/07/23 03:10 Labs: Laboratory Results - last 24 hr 12/06/23 10:16: PT 14.7, INR 1.2, APTT 29.7, Sodium 136, Potassium 3.1 L, Chloride 97 L, Carbon Dioxide 31.0, Anion Gap 8, BUN 40 H, Creatinine 6.02 H, Estim Creat Clear Calc 10.97, Est GFR (MDRD) Af Amer 9 L, Est GFR (MDRD) Non-Af 8 L, BUN/Creatinine Ratio 6.6 L, Glucose 226 H, Hemoglobin A1c 6.9 H, Calcium 8.6, Troponin I High Sens 78 H 12/06/23 13:51: POC Glucose 193 H 12/06/23 16:34: POC Glucose 212 H 12/06/23 20:36: POC Glucose 208 H 12/07/23 03:10: WBC 11.7 H, RBC 3.47 L, Hgb 8.4 L, Hct 26.3 L, MCV 75.8 L, MCH 24.2 L, MCHC 31.9 L, RDW Std Deviation 45.1 H, RDW Coeff of Gracy 16.5 H, Plt Count 214, MPV 9.8, Immature Gran % (Auto) 0.200, Neut % (Auto) 78.0 H, Lymph % (Auto) 12.4 L, Elliott % (Auto) 7.2, Eos % (Auto) 1.9, Baso % (Auto) 0.3, Absolute Neuts (auto) 9.1 H, Absolute Lymphs (auto) 1.45, Nucleated RBC % 0, Sodium 137, Potassium 2.8 L, Chloride 100, Carbon Dioxide 29.0, Anion Gap 8, BUN 45 H, Creatinine 6.06 H, Estim Creat Clear Calc 10.89, Est GFR (MDRD) Af Amer 9 L, Est GFR (MDRD) Non-Af 8 L, BUN/Creatinine Ratio 7.4 L, Glucose 189 H, Calcium 7.8 L, Total Bilirubin 0.30, AST 12 L, ALT 14, Alkaline Phosphatase 60, Total Protein 4.9 L, Albumin 1.8 L, Globulin 3.1, Albumin/Globulin Ratio 0.6 L, Triglycerides 73, Cholesterol 96, LDL Cholesterol 31, VLDL Cholesterol 15, HDL Cholesterol 50 12/07/23 07:45: POC Glucose 134 H Imaging Radiology Impression Brain CT 12/06/23 10:16 IMPRESSION: Chronic involutional changes of the brain. N.B. : The above Results were Read Back by José Manuel Miranda MD to Dakota León and understanding confirmed on 12/06/2023 10:39:01 (ET). Electronically Signed: José Manuel Miranda MD at 10:40 EDT , ADDENDUM: 12/06/23 1047 IMPRESSION: Chronic involutional changes of the brain. N.B. : The above Results were Read Back by José Manuel Miranda MD to Dakota León and understanding confirmed on 12/06/2023 10:39:01 (ET). Electronically Signed: José Manuel Miranda MD at 10:40 EDT , Hip/Pelvis X-Ray 12/06/23 10:17 IMPRESSION: Degenerative changes. No acute fracture is seen. Electronically Signed: José Manuel Miranda MD at 12:16 EDT , Head/Neck CTA 12/06/23 10:22 IMPRESSION: 50-69% stenosis at the origin of the right and left internal carotid arteries due to calcific plaque formation. N.B. : The above Results were Read Back by José Manuel Miranda MD to Dakota León and understanding confirmed on 12/06/2023 11:04:41 (ET). Electronically Signed: José Manuel Miranda MD at 11:05 EDT , ADDENDUM: 12/06/23 1112 IMPRESSION: 50-69% stenosis at the origin of the right and left internal carotid arteries due to calcific plaque formation. N.B. : The above Results were Read Back by José Manuel Miranda MD to Dakota León and understanding confirmed on 12/06/2023 11:04:41 (ET). Electronically Signed: José Manuel Miranda MD at 11:05 EDT , Chest X-Ray 12/06/23 11:30 IMPRESSION: Mild cardiomegaly. Residual blunting of the left costophrenic angle. Electronically Signed: José Manuel Miranda MD at 12:12 EDT , Echocardiogram 12/06/23 11:39 Interpretation Summary Normal LV size. Mild concentric left ventricular hypertrophy. Left ventricular systolic function is normal. The left ventricular ejection fraction is 70 %. Stage 1 diastolic dysfunction. Resting LV gradient 18 mmHg. Valsalva LV gradient 57 mmHg. Ordering Physician: Ramirez Snow Performed By: Ivy Tovar RDCS and Student Active Medications Active Medications Active Medications: Current Medications Generic Name Dose Route Start Last Admin Trade Name Freq PRN Reason Stop Dose Admin Acetaminophen 1,000 mg 12/06/23 16:31 Acetaminophen 500 Mg Tablet PO Q8H PRN PRN Pain 1-10 or Fever Atorvastatin Calcium 80 mg 12/06/23 22:00 12/06/23 19:58 Atorvastatin Calcium 80 Mg Tablet PO 80 mg QHS KARENA Administration Bupropion HCl 100 mg 12/06/23 22:00 12/07/23 07:46 Bupropion 100 Mg Tablet PO 100 mg BID KARENA Administration Glimepiride 1 mg 12/06/23 17:00 12/07/23 07:46 Glimepiride 1 Mg Tablet PO 1 mg BIDCM KARENA Administration Sodium Chloride 1,000 mls @ 100 mls/hr 12/06/23 10:35 12/07/23 10:22 IV 100 mls/hr .Q10H KARENA Administration Sodium Chloride 250 mls @ 15 mls/hr 12/06/23 14:11 IV .[id number] PRN Additional IVPB Infusion Sodium Chloride 250 mls @ 15 mls/hr 12/06/23 14:11 IV .[id number] PRN Saline Flush Lorazepam 0.5 mg 12/06/23 14:14 12/07/23 09:41 Lorazepam 2 Mg/Ml Syringe IV 0.5 mg Q6H PRN PRN Administration ANXIETY/AGITATION Ondansetron HCl 4 mg 12/06/23 12:08 Ondansetron 4 Mg/2 Ml Vial IV Q8H PRN PRN NAUSEA/VOMITING Oxycodone HCl 5 mg 12/06/23 16:31 12/07/23 09:40 Oxycodone 5 Mg Tablet PO 5 mg Q6H PRN PRN Administration Pain Score 6-10 Pantoprazole Sodium 20 mg 12/07/23 10:00 12/07/23 07:46 Pantoprazole Sodium 20 Mg Tablet PO 20 mg DAILY KARENA Administration Senna/Docusate Sodium 2 tablet 12/06/23 22:00 12/07/23 07:46 Senna/Docusate Sodium 1 Tablet PO 2 tablet BID KARENA Administration Sodium Chloride 10 - 40 ml 12/06/23 14:11 12/07/23 09:41 0.9% Saline Lock 10 Ml Syringe IV 10 ml UD PRN Administration SALINE FLUSH
--- NOTE | 2023-12-07 11:00 | MRI_ITS ---
We are attempting to reach an attending provider to discuss findings. An addendum with communication details will be sent when the communication is complete. STUDY: MRI BRAIN WITHOUT CONTRAST REASON FOR EXAM: Female, 58 years old. CVA -- MRI 24 hours after IV thrombolytic administration TECHNIQUE: Standardized multiplanar fat and water weighted pulse sequences were obtained. COMPARISON: Head CT dated December 06, 2023 FINDINGS: A moderate size acute infarct is present in the anterior aspect of the right parietal lobe and in the subinsular cortex and external capsule region, which are all distributions of the posterior cerebral artery. There is mild cerebral atrophy with widening of the extra-axial spaces and ventricular dilatation. There are a limited number of small white matter hyperintensities, distributed throughout the deep white matter tracts of the cerebral hemispheres, consistent with mild chronic white matter ischemic changes. Normal T2* images of the brain without demonstrated susceptibility artifact. There is no demonstrated hemosiderin stain. Normal bilateral basal ganglia. Normal thalami. There is no extra-axial fluid accumulation. Normal flow voids within the major intracranial circulation suggesting patency by spin echo criteria. Normal sella turcica, pituitary gland, infundibular stalk, optic chiasm and hypothalamus. Normal tectal plate and pineal gland. Normal midbrain, china and medulla. Normal cerebellum. Normal basal cisterns. Normal bilateral temporal bones. Normal bilateral internal auditory canals. No demonstrated orbital abnormality, within the constraints of a routine brain study. Normal visualized paranasal sinuses. Normal calvarium and skull base. Normal visualized soft tissue structures. Normal visualized upper cervical spine. Severe mucous opacification of the right mastoid air cells and middle ears consistent with otomastoiditis. MRI/Brain without Contrast IMPRESSION: Moderate size acute right parietal lobe infarct. 1. A moderate size acute infarct is present in the anterior aspect of the right parietal lobe and in the subinsular cortex and external capsule region, which are all distributions of the posterior cerebral artery. 2. No evidence of intracranial hemorrhage. Electronically Signed: Peter Guerrero MD at 14:22 EDT ,
--- NOTE | 2023-12-07 11:19 | CON.PCM.RE_ITS ---
Assessment & Plan Assessment/Plan (1) ESRD (end stage renal disease): PLAN: On peritoneal dialysis. Recently doing okay on dialysis. We will arrange for peritoneal dialysis tonight. As per hospital protocol, she will bring her own supplies and we will see if she is able to do it on her own. Currently she is at NIH stroke scale 5-6. Not sure of the discharge plans yet. I asked her to consider doing hemodialysis in center in case she is unable to do peritoneal dialysis at home by herself. Hypokalemia. Usually takes potassium chloride 20 mEq a day. Repleted this morning. Reviewed lab data from outpatient dialysis unit. Recent clearance has been obtained. Anemia. Cannot use PEPE due to recent stroke. HPI Consult Data Date of Consult: 12/07/23 HPI Narrative Reason for Consultation: ESRD HPI Narrative: CARLA HAMPTON, is a 58 F who presents to the hospital with stroke. She is s/p tenecteplase. Nephrology on consultation in view of ESRD. History of ESRD, currently on peritoneal dialysis. She has been fairly compliant with peritoneal dialysis according to her. history of diabetes. Recent clearance has been okay. NIH stroke scale has improved after tenecteplase. MRI scheduled for today. Currently does not offer any complaints [facility] Medical History Chronic kidney disease, stage 4 (severe) Diabetes Hyperlipemia Hypertension Iron deficiency anemia Home Medications losartan 50 mg tablet 50 mg PO BID blood pressure 11/27/14 [History Last Taken 12/05/23] bupropion HCl 100 mg tablet 100 mg PO BID pain 03/31/20 [History Last Taken 12/05/23] clonidine HCl 0.1 mg tablet 0.3 mg PO BID blood pressure 03/31/20 [History Last Taken 12/05/23] liraglutide 0.6 mg/0.1 mL (18 mg/3 mL) subcutaneous pen injector 1.8 mg SQ QHS diabetes 03/31/20 [History Last Taken 12/05/23] lovastatin 20 mg tablet 20 mg PO BID cholesterol 03/31/20 [History Last Taken 12/05/23] omeprazole 20 mg capsule,delayed release 20 mg PO DAILY reflux 03/31/20 [History Last Taken 12/05/23] trazodone 100 mg tablet 100 mg PO QHS sleep 03/31/20 [History Last Taken 12/05/23] carvedilol 25 mg tablet 25 mg PO BID 01/03/21 [History Last Taken 12/05/23] glimepiride 1 mg tablet 1 mg PO BID 01/03/21 [History Last Taken 12/05/23] oxycodone-acetaminophen 5 mg-325 mg tablet (Percocet) 1 tab PO Q8H PRN pain 3 days #9 tabs 03/22/21 [Rx Last Taken Unknown] acetaminophen 325 mg tablet 2,000 mg PO Q6H PRN PRN Pain Score 1-10/Temp > 100.7 F 12/22/22 [History Last Taken 12/05/23] furosemide 40 mg tablet 40 mg PO TID 12/22/22 [History Last Taken 12/05/23] amlodipine 5 mg tablet 5 mg PO BID 12/06/23 [History Last Taken 12/05/23] cetirizine 10 mg tablet (24Hour Allergy) 10 mg PO DAILY 12/06/23 [History Last Taken 12/05/23] rosuvastatin 10 mg tablet 10 mg PO QHS 12/06/23 [History Last Taken 12/05/23] Allergy/AdvReac Type Severity Reaction Status Date / Time lisinopril AdvReac Severe COUGH Verified 12/06/23 14:01 Family History (Updated 12/06/23 @ 14:[address] Ramirez Snow DO) Other CVA (cerebral vascular accident) Social History Smoking Status: Never smoker ROS ROS Narrative Negative except above Physical Exam Narrative Alert awake oriented x 3 no obvious distress no pallor no icterus no JVD s1s2 no murmurs lungs clear abdomen soft no organomegaly no edema no cyanosis spivey + Lab / Micro Data 12/07/23 03:10 12/07/23 03:10 Labs: Laboratory Results - last 24 hr 12/06/23 10:16: Hemoglobin A1c 6.9 H 12/06/23 13:51: POC Glucose 193 H 12/06/23 16:34: POC Glucose 212 H 12/06/23 20:36: POC Glucose 208 H 12/07/23 03:10: WBC 11.7 H, RBC 3.47 L, Hgb 8.4 L, Hct 26.3 L, MCV 75.8 L, MCH 24.2 L, MCHC 31.9 L, RDW Std Deviation 45.1 H, RDW Coeff of Gracy 16.5 H, Plt Count 214, MPV 9.8, Immature Gran % (Auto) 0.200, Neut % (Auto) 78.0 H, Lymph % (Auto) 12.4 L, [place] % (Auto) 7.2, Eos % (Auto) 1.9, Baso % (Auto) 0.3, Absolute Neuts (auto) 9.1 H, Absolute Lymphs (auto) 1.45, Nucleated RBC % 0, Sodium 137, Potassium 2.8 L, Chloride 100, Carbon Dioxide 29.0, Anion Gap 8, BUN 45 H, Creatinine 6.06 H, Estim Creat Clear Calc 10.89, Est GFR (MDRD) Af Amer 9 L, Est GFR (MDRD) Non-Af 8 L, BUN/Creatinine Ratio 7.4 L, Glucose 189 H, Calcium 7.8 L, Total Bilirubin 0.30, AST 12 L, ALT 14, Alkaline Phosphatase 60, Total Protein 4.9 L, Albumin 1.8 L, Globulin 3.1, Albumin/Globulin Ratio 0.6 L, Triglycerides 73, Cholesterol 96, LDL Cholesterol 31, VLDL Cholesterol 15, HDL Cholesterol 50 12/07/23 07:45: POC Glucose 134 H Imaging Radiology Impression Hip/Pelvis X-Ray 12/06/23 10:17 IMPRESSION: Degenerative changes. No acute fracture is seen. Electronically Signed: José Manuel Miranda MD at 12:16 EDT , Chest X-Ray 12/06/23 11:30 IMPRESSION: Mild cardiomegaly. Residual blunting of the left costophrenic angle. Electronically Signed: José Manuel Miranda MD at 12:12 EDT , Echocardiogram 12/06/23 11:39 Interpretation Summary Normal LV size. Mild concentric left ventricular hypertrophy. Left ventricular systolic function is normal. The left ventricular ejection fraction is 70 %. Stage 1 diastolic dysfunction. Resting LV gradient 18 mmHg. Valsalva LV gradient 57 mmHg. Ordering Physician: Ramirez Snow Performed By: Ivy Tovar RDCS and Student
[2023-12-07 11:31] LABS: Bedside Glucose 196 mg/dL (74-106)
--- NOTE | 2023-12-07 13:00 | CASEMGMT ---
SW completed a PHQ 9 with patient as she may have had a Stroke. Patient scored a 5 which indicates minimal depression. Patient denies any need for counseling resources. SW spoke with patient about discharge planning. Therapy told SW prior to going into the room that patient will need to go somewhere for rehab. Patient stated she is open to going somewhere for rehab. SW told patient about Acute Rehab vs SNF. SW did let patient know [facility] has an Acute Rehab, but they likely would not be able to take her due to patient being on peritoneal dialysis. Patient was open to going further away to go to an Acute Rehab Unit if necessary. Patient stated she has been to [facility] in the past also. SW told patient SW will provide her with a list of facilities that take her insurance. Viki QUIROS
--- NOTE | 2023-12-07 16:19 | CASEMGMT ---
Discharge Planning A list of SNF & RU providers including quality and resource use data and consistent with the patient's preferred geographic region, medical needs, and insurance network were printed and provided from the [employer] Guide. Rylie Kirby, Discharge Planning Asst.
[2023-12-07 19:20] LABS: Bedside Glucose 188 mg/dL (74-106)
[2023-12-07] MEDS: Acetaminophen 500 MG Tablet 1000 MG PO (19:56)
[2023-12-07] MEDS: amLODIPine 5 MG Tablet PO (21:23)
[2023-12-07] MEDS: cloNIDine HCl 0.1 MG Tablet 0.3 MG PO (21:24)
[2023-12-07] MEDS: Losartan Potassium 50 MG Tablet PO (21:24)
[2023-12-07] MEDS: Carvedilol 25 MG Tablet PO (21:24)
[2023-12-07] MEDS: Furosemide 40 MG Tablet PO (21:24)
[2023-12-07] MEDS: Atorvastatin Calcium 80 MG Tablet PO (21:24)
--- NOTE | 2023-12-07 22:45 | NURSING ---
pt seemed to have increased confusion, not answering all questions correctly and asking if her in in the room next to hers, taken for a repeat head ct
--- NOTE | 2023-12-07 22:51 | CT_ITS ---
EXAM: CT HEAD WITHOUT INTRAVENOUS CONTRAST CLINICAL INDICATION: confusion TECHNIQUE: Multiple axial images were obtained of the head without intravenous contrast. This CT exam was performed using one or more of the following dose reduction techniques: automated exposure control, adjustment of the mA and/or kV according to patient size, and/or use of iterative reconstruction technique. COMPARISON: 12/06/2023 FINDINGS: BRAIN AND EXTRA-AXIAL SPACES: There is hypodensity seen in the subcortical white matter of the right parietal lobe compatible with an acute infarct. This was not present on the CT dated 12/06/2023 but this was seen on MRI dated 12/07/2023. No intra- or extra-axial hemorrhage. No intracranial mass or mass effect. Posterior fossa structures are unremarkable. Ventricles are appropriate for age. No hydrocephalus. Basal cisterns are patent. BONES/JOINTS: Unremarkable. No discrete lytic or blastic abnormalities. SINUSES: Unremarkable as visualized. Clear. MASTOID AIR CELLS: Unremarkable. Clear. ORBITS: Visualized globes, extraocular muscles, optic nerves and retrobulbar fat appear unremarkable. CT/Brain/Head without Contrast IMPRESSION: Hypodensity in the subcortical white matter of the right parietal lobe seen on a recent MRI compatible with an acute infarct. There is no hemorrhage identified. Electronically Signed: Colby Hickman MD at 23:21 EDT ,
--- NOTE | 2023-12-07 23:08 | NURSING ---
This RN answered pt's call light and pt said she needed help getting up. Upon entering the room, pt was attempting to climb out of bed and said she needed help. This RN asked pt why she was getting up, and she said she needed to go to the bathroom. Explained to pt that she had a spivey and asked if she had to have a bowel movement. Pt said no that she just needed to get up. Oxygen reapplied to pt because she was satting in the high 80s. Pt tried to swat this RN away while putting on the oxygen. Pt very confused, saying she really needs to get up and get going for the day. Pt reoriented that it was nighttime and pt states I know. Pt denies being confused but said it's TuesdayNovember 08. Pt restless and tearful, calling for her parents and saying that her was just down the road although he is as well. Dr. Singh notified of concerns d/t TNK administration and worsening mental status. Brain CT ordered, no need for stroke alert. He asked that [facility] be notified though. Primary RN and BIOMEDICAL SPECIALIST took pt down to CT and this RN called [facility] and was connected with the neurologist. He concurred with the repeat CT and said that neurology can see her in the AM. If the head CT shows a hemorrhage, please call back, or if there are any other concerns or further worsening of mental status.
[2023-12-08] VITALS (7 sets, daily range): BP systolic 115–135; BP diastolic 62–66; PULSE 70–80; RESP 13–18; TEMP 36.8–36.9; O2SAT 92–98; BMI 30.9
[2023-12-08] MEDS: Furosemide 40 MG Tablet PO ×2 (05:48→16:54)
--- NOTE | 2023-12-08 07:20 | PN.HOSP_ITS ---
Reason for Visit Reason for Visit: Diagnoses Cerebral infarction, unspecified (12/06/23) End stage renal disease (12/06/23) Subjective Subjective Still with weakness on left side. Objective Data Objective Data Vital Signs: Vital Signs Temp Pulse Resp BP Pulse Ox O2 Del Method O2 Flow Rate 36.8 C 70 16 116/62 93 Nasal Cannula 3 12/08/23 02:00 12/08/23 04:15 12/08/23 04:15 12/08/23 02:00 12/08/23 02:00 12/08/23 04:15 12/08/23 04:15 FiO2 93 12/08/23 04:15 Oxygen Flow Rate (L/min) 3 Oxygen Delivery Method Nasal Cannula Weight: 89.5 kg Body Mass Index (BMI) 30.9 Intake & Output: Intake and Output for Last 24 Hours 12/06/23 12/07/23 12/08/23 23:59 23:59 23:59 Intake Total 1010 / 1010 2230 / 2470 240 / 240 Output Total 50 / 50 350 / 425 75 / 75 Balance 960 / 960 1880 / 2045 165 / 165 Lab / Micro Data 12/08/23 07:31 12/08/23 07:31 Labs: Laboratory Results - last 24 hr 12/07/23 07:45: POC Glucose 134 H 12/07/23 11:12: POC Glucose 196 H 12/07/23 16:24: POC Glucose 188 H Radiography Diagnostic Testing: Radiology Impression Brain MRI 12/07/23 11:00 IMPRESSION: Moderate size acute right parietal lobe infarct. 1. A moderate size acute infarct is present in the anterior aspect of the right parietal lobe and in the subinsular cortex and external capsule region, which are all distributions of the posterior cerebral artery. 2. No evidence of intracranial hemorrhage. Electronically Signed: Peter Guerrero MD at 14:22 EDT , ADDENDUM: 12/07/23 1017 IMPRESSION: Moderate size acute right parietal lobe infarct. 1. A moderate size acute infarct is present in the anterior aspect of the right parietal lobe and in the subinsular cortex and external capsule region, which are all distributions of the posterior cerebral artery. 2. No evidence of intracranial hemorrhage. N.B. : The above Results were Read Back by Peter Guerrero MD to Nusrat Schafer RN, and understanding confirmed on 12/07/2023 14:30:58 (ET). Electronically Signed: Peter Guerrero MD at 14:22 EDT , Brain CT 12/07/23 22:51 IMPRESSION: Hypodensity in the subcortical white matter of the right parietal lobe seen on a recent MRI compatible with an acute infarct. There is no hemorrhage identified. Electronically Signed: Colby Hickman MD at 23:21 EDT , Physical Exam Const alert and no apparent distress HEENT head/scalp atraumatic and moist oral mucous membranes Resp normal respiratory effort, no retractions, no use of accessory muscles and clear to auscultation bilaterally Cardio regular rate, regular rhythm, S1 normal heart sound and S2 normal heart sound GI normal to inspection, nondistended, normoactive bowel sounds, soft to palpation, non-tender and non-distended Extremity normal to inspection Neuro Neuro Narrative: MS 2/5 in LUE and LLE. Psych affect normal Assessment & Plan Assessment/Plan (1) Stroke aborted by administration of thrombolytic agent: PLAN: Plan Acute CVA * Status post TNK on 12/06 * Patient has had some improvement post-TNK, but still with residual left-sided weakness. * Complete stroke workup with MRI of the brain, 2D echocardiogram, fasting lipid panel, therapy evaluations. Neurology saw in ED, will continue consultation in the hospital. * Dr. Abel Bravo of teleneurology if MRI negative can start ASA and enoxaparin. * Continue with ASA and atorvastatin. End-stage renal disease * Notified by Dr. Sweeney at around 1700 on the that [employer] contacted him and did not advise doing peritoneal dialysis in the hospital as it would constitute fraud. Clarified with him if he was actually billing for that and he said that he would had no plans as the patient was going to be managed along with family. Then got a call at 1800 saying that [facility] had contacted the family advised him not to bring in the peritoneal dialysis equipment. Dr. Sweeney recommended transfer to a tertiary facility. I reached out to [facility] and provided information and the request for transfer being the need for peritoneal dialysis not for the patient's acute stroke which she is slowly recovering from. Chronic conditions: * HTN: hold carvedilol, clonidine, furosemide, amlodipine for 24 hour post TNK * Depression: continue bupropion. Fall * musculoskeletal pain following * PRN acetaminophen and oxycodone. VTE prophylaxis: SCDs. Charges/Coding Visit Charges Inpatient E&M: 30095 [facility] L3
[2023-12-08 07:59] LABS: Absolute Neutrophil Count 8.1 X10^3/uL (2.0-7.7); Basophil# 0.05 X10^3/uL; Basophil% 0.4 % (0-1); Eosinophil# 0.45 X10^3/uL; Eosinophils% 3.5 % (0-5); Hematocrit 24.1 % (37-47); Hemoglobin 7.7 g/dL (12.0-15.0); Lymphocyte % 23.5 % (19-41); Mean Corpuscular Hgb 24.6 pg (27.0-32.0); Monocyte# 1.09 X10^3/uL; Monocyte% 8.5 % (0-10); NRBC Flagged by Analyzer 0 % (0-5); Neutrophil # 8.14 X10^3/uL (2.7-7.7); Neutrophil % 63.9 % (47-70); Platelet Count 196 K/mm3 (150-450); RBC Distribution Width SD 47.6 fl (35.1-43.9); Red Blood Count 3.13 M/mm3 (4.2-5.4); White Blood Count 12.8 K/mm3 (4.4-11.0)
[2023-12-08] MEDS: cloNIDine HCl 0.1 MG Tablet 0.3 MG PO (08:21)
[2023-12-08] MEDS: buPROPion 100 MG Tablet PO (08:21)
[2023-12-08] MEDS: Losartan Potassium 50 MG Tablet PO (08:22)
[2023-12-08] MEDS: Senna/Docusate Sodium 1 Tablet 2 TABLET PO (08:22)
[2023-12-08] MEDS: Glimepiride 1 MG Tablet PO ×2 (08:22→16:54)
[2023-12-08] MEDS: amLODIPine 5 MG Tablet PO (08:22)
[2023-12-08] MEDS: Carvedilol 25 MG Tablet PO (08:22)
[2023-12-08] MEDS: Pantoprazole Sodium 20 MG Tablet PO (08:22)
[2023-12-08] MEDS: Loratadine 10 MG Tablet PO (08:23)
[2023-12-08 08:30] LABS: Anion Gap 10 (5-15); BUN 48 mg/dL (7-18); BUN/Creat Ratio 7.1 RATIO (10-20); Calcium,Total 7.6 mg/dL (8.5-10.1); Chloride 102 mmol/L (98-107); Creatinine, Serum 6.72 mg/dL (0.55-1.02); EST Glomerular Filtration Rate 7 mL/min (>60); Est Glom Filt Rate - Afr Amer 8 mL/min (>60); Estimated Creatinine Clearance 10.48 ml/min; Glucose 81 mg/dL (74-106); Potassium 3.2 mmol/L (3.5-5.1); Sodium Level 136 mmol/L (136-145)
[2023-12-08] MEDS: Aspirin 81 MG TAB.CHEW PO (10:17)
[2023-12-08] MEDS: Enoxaparin 30 MG/0.3 ML Syringe SC (10:17)
--- NOTE | 2023-12-08 11:31 | CASEMGMT ---
Social Work SW met w/pt and her sister/cousin Kathy in room in regard to discharge plan. SW educated pt and Kathy to the rehab in a penitentiary facility vs hospital based rehab. They have the lists and are looking them over. SW did also explain that wherever she is interested in going, we would send referrals and then whichever facility takes her will need to get a precert w/her insurance. SW also explained that she does have what is considered a rehab diagnosis, but that does not guarantee that the insurance will cover it; SW also let them know that [employer] can take several days to get precert back. Both seem to understand. Pt and Kathy then went on to explain that pt may need to be transferred, as they were told pt cannot due peritoneal dialysis here. If this is the case, their options would be to get transferred or do hemodialysis while here. SW spoke w/RN for clarification. Dr. Sweeney is coming in at 12:30 and will clarify the plan. SW explained we can follow up w/her after this, if pt stays here we will work w/her regarding rehab options. Also, pt has [facility] paperwork. SW assisted in filling out some of the information, directed pt's cousin Kathy to bring the paperwork to the PCP to complete. Pt now meeting w/neurologist, SARAH to follow up after Dr. Sweeney sees pt to see what is the most appropriate plan. STEPHEN Villela
[2023-12-08 11:43] LABS: Bedside Glucose 121 mg/dL (74-106)
--- NOTE | 2023-12-08 11:47 | PN.NEURO_ITS ---
Objective Data Objective Data Vital Signs: Vital Signs Temp Pulse Resp BP Pulse Ox O2 Del Method O2 Flow Rate 98.3 F 74 18 135/66 H 98 Nasal Cannula 3 12/08/23 08:00 12/08/23 08:00 12/08/23 08:00 12/08/23 08:00 12/08/23 08:00 12/08/23 08:40 12/08/23 08:40 FiO2 93 12/08/23 04:15 Oxygen Flow Rate (L/min) 3 Oxygen Delivery Method Nasal Cannula Weight: 89.5 kg Body Mass Index (BMI) 30.9 Intake & Output: Intake and Output for Last 24 Hours 12/06/23 12/07/23 12/08/23 23:59 23:59 23:59 Intake Total 1010 / 1010 2230 / 2470 240 / 240 Output Total 50 / 50 350 / 425 75 / 75 Balance 960 / 960 1880 / 2045 165 / 165 Lab / Micro Data 12/08/23 07:31 12/08/23 07:31 Labs: Laboratory Results - last 24 hr 12/07/23 16:24: POC Glucose 188 H 12/08/23 07:31: WBC 12.8 H, RBC 3.13 L, Hgb 7.7 L, Hct 24.1 L, MCV 77.0 L, MCH 2 4.6 L, MCHC 32.0, RDW Std Deviation 47.6 H, RDW Coeff of Gracy 17.0 H, Plt Count 196, MPV 10.0, Immature Gran % (Auto) 0.200, Neut % (Auto) 63.9, Lymph % (Auto) 23.5, [place] % (Auto) 8.5, Eos % (Auto) 3.5, Baso % (Auto) 0.4, Absolute Neuts (auto) 8.1 H, Absolute Lymphs (auto) 3.00, Nucleated RBC % 0, Sodium 136, Potassium 3.2 L, Chloride 102, Carbon Dioxide 24.0, Anion Gap 10, BUN 48 H, Creatinine 6.72 H, Estim Creat Clear Calc 10.48, Est GFR (MDRD) Af Amer 8 L, Est GFR (MDRD) Non-Af 7 L, BUN/Creatinine Ratio 7.1 L, Glucose 81, Calcium 7.6 L 12/08/23 11:26: POC Glucose 121 H Radiography Diagnostic Testing: Radiology Impression Brain MRI 12/07/23 11:00 IMPRESSION: Moderate size acute right parietal lobe infarct. 1. A moderate size acute infarct is present in the anterior aspect of the right parietal lobe and in the subinsular cortex and external capsule region, which are all distributions of the posterior cerebral artery. 2. No evidence of intracranial hemorrhage. Electronically Signed: Peter Guerrero MD at 14:22 EDT , ADDENDUM: 12/07/23 1437 IMPRESSION: Moderate size acute right parietal lobe infarct. 1. A moderate size acute infarct is present in the anterior aspect of the right parietal lobe and in the subinsular cortex and external capsule region, which are all distributions of the posterior cerebral artery. 2. No evidence of intracranial hemorrhage. N.B. : The above Results were Read Back by Peter Guerrero MD to Nusrat Schafer RN, and understanding confirmed on 12/07/2023 14:30:58 (ET). Electronically Signed: Peter Guerrero MD at 14:22 EDT , Brain CT 12/07/23 22:51 IMPRESSION: Hypodensity in the subcortical white matter of the right parietal lobe seen on a recent MRI compatible with an acute infarct. There is no hemorrhage identified. Electronically Signed: Colby Hickman MD at 23:21 EDT , Physical Exam Neuro Neuro Narrative: Neurological examination: General: The patient appears nutritionally appropriate, well-groomed, and appears comfortable in no acute distress. Mental Status:? The patient?s mental status was normal including orientation.? Language was intact.? Cranial nerves:? Visual bear full, and extra-ocular motion was intact. Face motion symmetric.? There was no dysarthria. Motor: Normal strength in right arm and leg. Left hemiparesis (arm>leg). Sensation: Decreased light touch in left arm, + neglect.? Coordination:? Right finger to nose was normal.? There was no dysmetria. Gait:? deferred Subject: Neurology Subjective No new complaints. She feels her left side is better. She had MRI jair and TTE completed yesterday. Assessment and Plan: Stroke Assessment/Plan Assessment/Plan CARLA HAMPTON, is a 58 year old RH Female ex-smoker with a history of CRi, DM, HL, HTN who on 12/06/2023 at 10a fell in the parking lot with left sided weakness. She presented to [place] [facility]. Intial NIHSS 16. CT brain negative. CTA head/neck showed 50-60% BICA stenosis. She was given IVtNK (1041) and post TNK her NIHSS improved to 5. She was admitted to ICU. LDL 31, HgbA1c 6.9. MRI brain shows an acute right patchy MCA infarct. TTE EF 70%. Neurological examination shows left arm/leg weakness, sensory, and neglect, NIHSS 7. ASSESSMENT/PLAN: Acute right MCA ischemic stroke s/p IV TNK (41min) 1) Recommend SHEMAR to complete inpatient stroke work-up. 2) Continue daily anti-platelet medication (Asa). 3) Continue vascular risk factor modification. On lipitor 80. 4) Continue PT/OT 5) Event monitor on discharge Messaged primary team with my recommendations.
--- NOTE | 2023-12-08 13:06 | PCM.PN.REN ---
Subjective Subjective No new events. Weakness is about the same. Objective Data Objective Data Vital Signs: Vital Signs Temp Pulse Resp BP Pulse Ox O2 Del Method O2 Flow Rate 98.3 F 74 18 135/66 H 98 Nasal Cannula 3 12/08/23 08:00 12/08/23 08:00 12/08/23 08:00 12/08/23 08:00 12/08/23 08:00 12/08/23 08:40 12/08/23 08:40 FiO2 93 12/08/23 04:15 Oxygen Flow Rate (L/min) 3 Oxygen Delivery Method Nasal Cannula Weight: 89.5 kg Body Mass Index (BMI) 30.9 Intake & Output: Intake and Output for Last 24 Hours 12/06/23 12/07/23 12/08/23 23:59 23:59 23:59 Intake Total 1010 / 1010 2230 / 2470 240 / 240 Output Total 50 / 50 350 / 425 75 / 75 Balance 960 / 960 1880 / 2045 165 / 165 Lab / Micro Data 12/08/23 07:31 12/08/23 07:31 Labs: Laboratory Results - last 24 hr 12/07/23 16:24: POC Glucose 188 H 12/08/23 07:31: WBC 12.8 H, RBC 3.13 L, Hgb 7.7 L, Hct 24.1 L, MCV 77.0 L, MCH 24.6 L, MCHC 32.0, RDW Std Deviation 47.6 H, RDW Coeff of Gracy 17.0 H, Plt Count 196, MPV 10.0, Immature Gran % (Auto) 0.200, Neut % (Auto) 63.9, Lymph % (Auto) 23.5, Brantley % (Auto) 8.5, Eos % (Auto) 3.5, Baso % (Auto) 0.4, Absolute Neuts (auto) 8.1 H, Absolute Lymphs (auto) 3.00, Nucleated RBC % 0, Sodium 136, Potassium 3.2 L, Chloride 102, Carbon Dioxide 24.0, Anion Gap 10, BUN 48 H, Creatinine 6.72 H, Estim Creat Clear Calc 10.48, Est GFR (MDRD) Af Amer 8 L, Est GFR (MDRD) Non-Af 7 L, BUN/Creatinine Ratio 7.1 L, Glucose 81, Calcium 7.6 L 12/08/23 11:26: POC Glucose 121 H Radiography Diagnostic Testing: Radiology Impression Brain MRI 12/07/23 11:00 IMPRESSION: Moderate size acute right parietal lobe infarct. 1. A moderate size acute infarct is present in the anterior aspect of the right parietal lobe and in the subinsular cortex and external capsule region, which are all distributions of the posterior cerebral artery. 2. No evidence of intracranial hemorrhage. Electronically Signed: Peter Guerrero MD at 14:22 EDT , ADDENDUM: 12/07/23 1437 IMPRESSION: Moderate size acute right parietal lobe infarct. 1. A moderate size acute infarct is present in the anterior aspect of the right parietal lobe and in the subinsular cortex and external capsule region, which are all distributions of the posterior cerebral artery. 2. No evidence of intracranial hemorrhage. N.B. : The above Results were Read Back by Peter Guerrero MD to Nusrat Schafer RN, and understanding confirmed on 12/07/2023 14:30:58 (ET). Electronically Signed: Peter Guerrero MD at 14:22 EDT , Brain CT 12/07/23 22:51 IMPRESSION: Hypodensity in the subcortical white matter of the right parietal lobe seen on a recent MRI compatible with an acute infarct. There is no hemorrhage identified. Electronically Signed: Colby Hickman MD at 23:21 EDT , Physical Exam Narrative Alert awake oriented x 3 no obvious distress no pallor no icterus no JVD s1s2 no murmurs lungs clear abdomen soft no organomegaly no edema no cyanosis spivey + Assessment & Plan Assessment/Plan (1) ESRD (end stage renal disease): PLAN: On peritoneal dialysis. Recently doing okay on dialysis. Unfortunately could not arrange peritoneal dialysis and until technicalities To get out will not be able to get dialysis yet. Spoke to hospitalist yesterday evening and today morning. Transfer line has been called at [facility]. Called [facility] this afternoon. They should be able to get her a bed for tonight. Discussed with family at bedside. Hypokalemia. Usually takes potassium chloride 20 mEq a day. Repleted this morning. Reviewed lab data from outpatient dialysis unit. Recent clearance has been obtained. Anemia. Cannot use PEPE due to recent stroke.
--- NOTE | 2023-12-08 13:38 | WOUNDNOTE ---
wound photo: right foot
--- NOTE | 2023-12-08 14:44 | CHAPLAIN ---
Type of Pastoral Visit ___ Initial Visit _x__ Follow-up Visit ___ On-call Visit ___ General Patient Visit ___ Spiritual Assessment ___ Family Conference ___ Bereavement ___ Rapid Response ___ Code Blue ___ Other (describe below) Pastoral Care Referral From ___ Patient _x__ Family ___ Nurse ___ Physician ___ Tank House Operator Helper ___ Outboard System Operator ___ Other (describe below) Sacrament/Intervention _x__ Active listening ___ Anointing ___ Religion ___ Bereavement ___ Communion ___ Alejandra exploration ___ _x__ Life review _x__ Prayer ___ Reconciliation ___ Sacrament of Sick _x__ Supportive presence ___ Wedding ___ Other (describe below) Pastoral Comments patient is talking and focused; pt acknowledges her limitations since the stroke and desire to get into therapy and rehab for recover; pt is waiting to be transferred to another facility so she can receive her dialysis; pt is of the Sikhism alejandra and is open to visits of mixer operator vacuum pan salt or pelt dropper; pt welcomes a prayer and a person to talk with for now; wound nurse came to do her care and this visit ended with a prayer
--- NOTE | 2023-12-08 16:54 | DS.PCM_ITS ---
Providers Date of Admission: 12/06/23 Primary Care Physician: Dr. Laura Ennis MD Consultations 12/06/23 12:08 Consult: Tele-Neurology Routine Consulting Provider: [facility] Reason for Consult: Acute Ischemic Stroke/TIA EMERGENT Consult: Yes Notified: Yes Date Notified: 12/06/23 Time Notified: 11:34 Method of Notification: ED Physician Initiated Nursing Unit Staff Notify [facility] of Tele-Neurology Consult: Yes 12/06/23 14:14 Consult: Nephrology Routine Consulting Provider: Silas Sweeney Reason for Consult: dialysis EMERGENT Consult: No Notified: Yes Date Notified: 12/06/23 Time Notified: 14:14 Method of Notification: Verbal 12/08/23 10:30 Consult: Onc/Wound/transitional care manager Routine Comment: Reason for Consult:: Right toe amputation Reason For Visit: CVA POST TNK Diagnosis Discharge Diagnosis (1) Stroke aborted by administration of thrombolytic agent: Status: Acute Code(s): I63.9 - Cerebral infarction, unspecified Plan Acute CVA * Status post TNK on 12/06 * Patient has had some improvement post-TNK, but still with residual left-sided weakness. * Complete stroke workup with MRI of the brain, 2D echocardiogram, fasting lipid panel, therapy evaluations. Neurology saw in ED, will continue consultation in the hospital. * Dr. Abel Bravo of teleneurology if MRI negative can start ASA and enoxaparin. * Continue with ASA and atorvastatin. End-stage renal disease * Notified by Dr. Sweeney at around 1700 on the that [employer] contacted him and did not advise doing peritoneal dialysis in the hospital as it would constitute fraud. Clarified with him if he was actually billing for that and he said that he would had no plans as the patient was going to be managed along with family. Then got a call at 1800 saying that [facility] had contacted the family advised him not to bring in the peritoneal dialysis equipment. Dr. Sweeney recommended transfer to a tertiary facility. I reached out to [facility] and provided information and the request for transfer being the need for peritoneal dialysis not for the patient's acute stroke which she is slowly recovering from. Chronic conditions: * HTN: hold carvedilol, clonidine, furosemide, amlodipine for 24 hour post TNK * Depression: continue bupropion. Fall * musculoskeletal pain following * PRN acetaminophen and oxycodone. VTE prophylaxis: SCDs. Medications at Discharge Home Medications losartan 50 mg tablet 50 mg PO BID blood pressure 11/27/14 bupropion HCl 100 mg tablet 100 mg PO BID pain 03/31/20 clonidine HCl 0.1 mg tablet 0.3 mg PO BID blood pressure 03/31/20 liraglutide 0.6 mg/0.1 mL (18 mg/3 mL) subcutaneous pen injector 1.8 mg SQ QHS diabetes 03/31/20 lovastatin 20 mg tablet 20 mg PO BID cholesterol 03/31/20 omeprazole 20 mg capsule,delayed release 20 mg PO DAILY reflux 03/31/20 trazodone 100 mg tablet 100 mg PO QHS sleep 03/31/20 carvedilol 25 mg tablet 25 mg PO BID 01/03/21 glimepiride 1 mg tablet 1 mg PO BID 01/03/21 oxycodone-acetaminophen 5 mg-325 mg tablet (Percocet) 1 tab PO Q8H PRN pain 3 days #9 tabs 03/22/21 acetaminophen 325 mg tablet 2,000 mg PO Q6H PRN PRN Pain Score 1-10/Temp > 100.7 F 12/22/22 furosemide 40 mg tablet 40 mg PO TID 12/22/22 amlodipine 5 mg tablet 5 mg PO BID 12/06/23 cetirizine 10 mg tablet (24Hour Allergy) 10 mg PO DAILY 12/06/23 rosuvastatin 10 mg tablet 10 mg PO QHS 12/06/23 Hospital Course Operations None Procedures 2-D Echocardiogram Summary of Care Provided Minutes Spent on Discharge: 45 Hospital Course: Patient presents with fall and was found to have left-sided weakness. Initial NIH score was elevated from 14-16. Patient was deemed a candidate for tenecteplase and she received that on the seventh. Patient did have some improvement of her left-sided weakness. MRI showed a right parietal stroke. Follow-up but imaging did not show any hemorrhage. Patient was also started on aspirin. Patient's weakness did try to get worse with there was not any evide nce of any worsening edema nor bleed on imaging. Unfortunately, the patient is on peritoneal dialysis. And we attempted to have that be performed as that we had willing for members able to come in and help to administer that, however the dialysis company, [employer], contacted Dr. Sweeney and told he and the patient's family that it would be fraud if the patient were to have her peritoneal dialy sis performed here. Dr. Sweeney recommended transfer. Spoke with [facility] and patient would be excepted and transferred there. Weight / BMI Weight Weight: 89.5 kg Body Mass Index (BMI) 30.9 ABG / Lab / Microbiology Data 12/08/23 07:31 12/08/23 07:31 Laboratory: Laboratory Results - last 24 hr 12/07/23 16:24: POC Glucose 188 H 12/08/23 07:31: WBC 12.8 H, RBC 3.13 L, Hgb 7.7 L, Hct 24.1 L, MCV 77.0 L, MCH 24.6 L, MCHC 32.0, RDW Std Deviation 47.6 H, RDW Coeff of Gracy 17.0 H, Plt Count 196, MPV 10.0, Immature Gran % (Auto) 0.200, Neut % (Auto) 63.9, Lymph % (Auto) 23.5, [place] % (Auto) 8.5, Eos % (Auto) 3.5, Baso % (Auto) 0.4, Absolute Neuts (auto) 8.1 H, Absolute Lymphs (auto) 3.00, Nucleated RBC % 0, Sodium 136, Potassium 3.2 L, Chloride 102, Carbon Dioxide 24.0, Anion Gap 10, BUN 48 H, Creatinine 6.72 H, Estim Creat Clear Calc 10.48, Est GFR (MDRD) Af Amer 8 L, Est GFR (MDRD) Non-Af 7 L, BUN/Creatinine Ratio 7.1 L, Glucose 81, Calcium 7.6 L 12/08/23 11:26: POC Glucose 121 H Radiography Diagnostic Testing: Radiology Impression Brain CT 12/07/23 22:51 IMPRESSION: Hypodensity in the subcortical white matter of the right parietal lobe seen on a recent MRI compatible with an acute infarct. There is no hemorrhage identified. Electronically Signed: Colby Hickman MD at 23:21 EDT , D/C Instructions Discharge Diet: Low fat / Low cholesterol Meaningful Use Info Meaningful Use Meaningful Use Diagnoses (Choose all that apply): Ischemic CVA CVA Therapy Assessed for PT,OT and/or ST?: Yes Ischemic Stroke Antithrombotic order at d/c?: Yes Dx of Atrial fib/flutter?: No Anticoagulant at discharge?: No Reason anticoagulant not ordered: Treatment not Indicated Statin Dosing Therapy Reference: STATIN DOSE THERAPY REFERENCE: * Patients > 75 years receive moderate or high dose statin therapy. * Patients 75 years or YOUNGER should receive HIGH intensity statin dose unless contraindicated. You will be required to document reason for non-treatment if statin daily dose does not meet guidelines. HIGH DOSE STATIN THERAPY DAILY Atorvastatin > than or = to 40 mg Rosuvastatin > than or = to 20 mg Amlodipine + Atorvastatin > than or = to 2.5/40 mg Ezetimibe + Simvastatin 10/80 mg Simvastatin 80mg Statins at discharge?: Yes If patient is 75 or younger, pt will be discharged on HIGH intensity statin.: Yes Primary Dx Acute Ischemic CVA?: Yes IV thrombolytic ordered during stay?: Yes Discharge Plan Admission Admit Date/Time: 12/06/23 11:30 Primary Reason for Your Visit: Stroke Attending Provider: Ramirez Snow Primary Care Provider: Laura Ennis Consulting Providers: Silas Sweeney; Agustin Tran; Ramírez Cheng; Aditi Quiroz; Mayra Downing; Sadaf Lacy; Mata Lee; Mariah Candelario; Elias Vincent; Jimmy Guerin; Jaclyn Walls; Sidney Wilcox; Akosua Barajas; Aixa Lobo; Akira Otoole Doc; Jose J Serrano; René Shrestha; Doni Self; Lucila Bravo; Aurelio Hidalgo Discharge Orders/Prescriptions Prescriptions: No Action losartan 50 MG tablet 50 mg PO BID clonidine HCl 0.1 MG tablet 0.3 mg PO BID bupropion HCl 100 MG tablet 100 mg PO BID omeprazole 20 MG capsule 20 mg PO DAILY lovastatin 20 MG tablet 20 mg PO BID liraglutide 0.6 MG/0.1 ML pen injector 1.8 mg SQ QHS trazodone 100 MG tablet 100 mg PO QHS carvedilol 25 mg tablet 25 mg PO BID glimepiride 1 mg tablet 1 mg PO BID oxycodone-acetaminophen [Percocet] 5-325 mg tablet 1 tab PO Q8H PRN (Reason: pain) 3 Days Qty: 9 0RF furosemide 40 mg tablet 40 mg PO TID acetaminophen 325 MG tablet 2,000 mg PO Q6H PRN PRN (Reason: Pain Score 1-10/Temp > 100.7 F) amlodipine 5 mg tablet 5 mg PO BID rosuvastatin 10 mg tablet 10 mg PO QHS cetirizine [24Hour Allergy] 10 mg tablet 10 mg PO DAILY Referrals / Follow Up: Laura Ennis MD [Primary Care Provider] - Disposition Disposition (needs filled in before D/C Order can be placed): Acute Care Hospital Charges/Coding Visit Charges Inpatient E&M: 45296 Disch Hosp >30min
[2023-12-08] MEDS: 0.9% Saline Lock 10 ML Syringe IV (20:24)
[2023-12-08] MEDS: Ondansetron 4 MG/2 ML Vial IV (20:24)
== END 2023-12-08 20:28 | disposition short-term general hospital (02) | DRG 61 ==
LOC: ED 10:57 → ICU 12:03
PROVIDERS: Emergency Provider Student in an Organized Health Care Education/Training Program; PCP Internal Medicine
DX: I63.511 Cerebral infarction due to unspecified occlusion or stenosis of right middle cerebral artery (principal); N18.6 End stage renal disease; G81.94 Hemiplegia, unspecified affecting left nondominant side; I12.0 Hypertensive chronic kidney disease with stage 5 chronic kidney disease or end stage renal disease; E11.22 Type 2 diabetes mellitus with diabetic chronic kidney disease; F32.A Depression, unspecified; E78.5 Hyperlipidemia, unspecified; E87.6 Hypokalemia; Z99.2 Dependence on renal dialysis; R29.716 NIHSS score 16; R29.705 NIHSS score 5; R29.810 Facial weakness; R47.81 Slurred speech; Z79.84 Long term (current) use of oral hypoglycemic drugs; Z79.899 Other long term (current) drug therapy; Z87.891 Personal history of nicotine dependence
CPT/HCPCS: 36415; 51702; 70450; 70496; 70498; 70551; 71045; 73502; 80048; 80053; 80061; 82962; 83036; 84484; 85025; 85610; 85730; 92526; 92610; 93005; 93306; 97110; 97163; 97167; 97530; 97802; 99285; J3101; J7030; Q9967; A4216; J2405